=== PATIENT | female | born 1940 | race Caucasian/White ===

== ENCOUNTER 2019-09-24 12:26 | Inpatient (IN) | payer MEDICARE, OTHER, SELFPAY ==
[2019-09-24 12:27] VITALS: BP 163/69; PULSE 68; RESP 18; TEMP 36.6; BMI 24.3
--- NOTE | 2019-09-24 13:15 | RAD_ITS ---
STUDY: X-RAY - PELVIS AND LEFT HIP REASON FOR EXAM: Female, 78 years old. TECHNIQUE: views of the pelvis and hip. COMPARISON: None. FINDINGS: Both iliac bones and right hip are unremarkable. The left hip reveals intramedullary harmony with 2 screws in neck, there is some lucency around the screws. Also calcification noted superior to the greater trochanter. Arterial calcifications noted of superficial femoral arteries bilaterally. Some phleboliths are present in the pelvis as well. Degenerative changes seen in the lower lumbar spine. RAD/HIP, UNI W/ Pelvis 2-3 Views IMPRESSION: Intramedullary harmony within the femur with 2 screws transfixing neck some lucency seen around the screws. Four clinical correlation. Electronically Signed: Jules Navarrete, at 13:58 EST Tel , Service support ,
--- NOTE | 2019-09-24 13:35 | ED.VISSUMM ---
- ER Visit Summary Date of Service: 09/24/19 Chief Complaint: [Fall] History of Present Illness: The patient is a 78 F [presents to the emergency department with a fall that occurred around 7 AM today. Patient was standing on the edge of a skid core loader and as her was putting the skin down it tipped forward and she fell probably less than a foot off the ground but landed on her buttocks and onto her left hip. Patient was able to stand and bear some weight with a cane but progressively developed more discomfort now with a hard time ambulating at all. Patient denies striking her head. She denies neck pain. She denies chest pain. She denies any abdominal pain. She is not on any blood thinners. Patient has history of diabetes, hypertension, high cholesterol. Patient has had prior fracture to the left hip with prior repair.] Physical Examination: [HEENT-PERRLA, EOMI. Cranial nerves II through XII grossly intact. TMs clear. Mucous membranes moist. No adenopathy. Cardiovascular-regular rate and rhythm without murmur or ectopy Lungs-clear to auscultation, chest wall stable without crepitus or subcu emphysema Abdomen-normoactive bowel sounds, soft, nontender, no rebound or rigidity, no peritoneal signs. Extremities-intact ?4, normal range of motion, normal pulses, atraumatic. Patient has tenderness palpation over the left groin and pubic ramus. Mild tenderness over the left hip. There is no shortening or external rotation noted. She is neurovascular intact.] Test Results: [X-rays of the left hip and pelvis obtained read by myself is fractures of the superior and inferior pubic ramus. I do not appreciate any fractures of the hip.] Emergency Department Course and Treatment: [Had an IV line established. Patient will be ordered a CBC and a basic metabolic profile. She does not want anything for pain acutely states she is only uncomfortable when she tries to stand or bear weight.] Treatment Plan: [Admit] Disposition: [Admit] Impression: [Mechanical fall Left inferior and superior pubic ramus fracture Inability to ambulate] This note was generated with [employer] dictation software. It may contain incorrect words, spelling, and punctuation that were not noted in review of the chart prior to signing ED Disposition - Plan for ED Patient: Referrals: Hai Posadas MD [Primary Care Provider] -
[2019-09-24 13:52] VITALS: BP 180/74; PULSE 68; PULSE 71; RESP 15; O2SAT 95; O2SAT 96
--- NOTE | 2019-09-24 14:06 | HP.PCM_ITS ---
Problem List (1) Hip pain Status: Acute Qualifiers: Laterality: left Qualified Code(s): M25.552 - Pain in left hip History of Present Illness Date of Admission: 09/24/19 Chief Complaint: hip pain The patient is a 78 year old F who had a mechanical fall today. Patient was standing on a skid steer as they were collecting hay. The hay [place] tipped forward and the patient fell landing on her buttocks. Patient did not hit her head nor lose consciousness. Patient had immediate pain particular on her left side worse with movement. Patient was not having this pain previous. Presented to the emergency room where she was seen by the emergency room physician he diagnosed iliac fractures. Final results came back the x-ray that noted that the iliac bones were unremarkable but did show the intramedullary harmony with in the femur showed some loosening around the screws. [] Past Medical History Past Medical History (Chronic Problems): Chronic Problems Osteoporosis (Chronic) Hypertension (Chronic) Type I diabetes mellitus (Chronic) Allergies No Known Allergies Allergy (Verified 09/24/19 12:29) Home Medications: Ambulatory Orders Medication Instructions Recorded Aspirin [Aspirin, Baby] 81 mg PO DAILY 04/30/15 Metoprolol Tartrate [Lopressor 25 mg PO BID 04/30/15 (beta pradip)] Losartan Potassium [Cozaar] 25 mg PO QHS 12/17/15 Lovastatin [Mevacor] 20 mg PO DAILY 12/17/15 Calcium (Elemental) [Os-Javier 500] 1,000 mg PO BIDCM 09/24/19 Ergocalciferol [Vitamin D] 50,000 units PO QWEEK 09/24/19 Furosemide [Lasix] 20 mg PO DAILY 09/24/19 Insulin Lispro [Humalog] See Protocol SUBCUT TID 09/24/19 Losartan Potassium 50 mg PO DAILY 09/24/19 Surgical History: total hip arthroplasty, - - Thyroglossal cyst removal, C- section, D&C Psychiatric History: No pertinent psych hx [employer] History: No pertinent [employer]PH[employer] history Smoking Status: Never smoker Tobacco Use: Non-smoker - *Family History Maternal History Items: Stroke - age 89 Paternal History Items: No pertinent history - age 89 Offspring History Items: No pertinent history - 2 adopted children and 2 grqandchildren Sibling History Items: Heart Disease Review of Systems Constitutional: Denies: Anorexia, Chills, Fever, Night Sweats Eyes: Denies: Blurred vision, Double vision HEENT: Denies: Head Aches, Sinus Congestion, Sinus Drainage Cardiovascular: Reports: Edema - Chronic and left lower extremity. Denies: Chest Pain, Palpitations Respiratory: Denies: Cough, Shortness of breath at rest, Sputum production Gastrointestinal: Reports: Constipation. Denies: Abdominal Pain, Nausea, Vomiting Genitourinary: Denies: Dysuria Musculoskeletal: Reports: Leg Pain. Denies: Back Pain Skin: Reports: Dryness Neurological: Denies: Blurred vision, Double vision, Numbness Psychiatric: Denies: Anxiety, Depression Endocrine: Denies: Change in Body Habitus, Heat/ Cold Intolerance Hematologic/ Lymphatic: Denies: Easy Bruising, Easy Bleeding, Hx of blood clot Comment: RV systems otherwise negative except for as mentioned above and in HPI. VTE Information - Inpt Only VTE Present on Admission: No VTE Mechan Device Prophylaxis: None VTE Pharm Prophylaxis ordered?: Yes Patient Problems: Active and Suspected Problems Hip pain (Acute) - Physical Exam Vitals/I&O's: Vital Signs Temp Pulse Resp BP Pulse Ox 36.6 C 71 15 180/74 H 96 09/24/19 12:27 09/24/19 13:52 09/24/19 13:52 09/24/19 13:52 09/24/19 13:52 Oxygen Delivery Method Room Air Weight: 62.142 kg Body Mass Index (BMI) 24.3 Finger Stick Blood Glucose 349 General: Alert, Cooperative, No apparent distress HEENT: Atraumatic, Normocephalic Oral: Moist Mucosa, No Gingival or Mucosal Lesions/ Ulcerations Neck: No Nodes, Trachea Midline Lungs: Clear to auscultation, Normal air movement, No rhonchi, No wheeze, No rales Cardiovascular: Regular rate, Regular Rhythm, Normal S1, Normal S2 Abdomen: Bowel Sounds Present, Soft, Non Tender, Non-Distended, No Hepato- splenomegaly Extremities: No Calf Tenderness, Edema - In the left lower extremity Skin: No rashes Musculoskeletal: No Muscle Wasting, - - Pain with passive movement of the left hip. No shortening of the left hip. Neurological: Muscle tone normal, Coordination normal, - - No clonus Psych/Mental Status: Normal Affect, Appropriate Clinical Impression(s) from Imaging Studies Hip/Pelvis X-Ray 09/24/19 13:15 IMPRESSION: Intramedullary harmony within the femur with 2 screws transfixing neck some lucency seen around the screws. Four clinical correlation. Electronically Signed: Jules Navarrete, at 13:58 EST Tel , Service support , Assessment/Plan All Active Problems Hip pain (Acute) S/P ORIF (open reduction internal fixation) fracture (Acute) Medical management (Acute) Intertrochanteric fracture of left hip (Acute) 1. Left hip pain * Status post mechanical fall * No iliac fractures * Possible lucency around the screws from her previous hip fracture repair * Will check a CAT scan. Given the patient's hardware, feel that it be less artifact from that as compared to the MRI * Patient will be nonweightbearing left lower extremity until we can fully evaluate the hip with a CAT scan. If no fracture then patient can be weightbearing as tolerated but if a fracture then will need to consult orthopedics. The patient does have a fracture cannot refer to orthopedics here or the patient prefers contact [facility] where the patient had the surgery in [address] Polanco * Check a 25-hydroxy vitamin D level * If no fracture, physical Occupational Therapy evaluate and treat. Patient be evaluated for possible halfway facility placement. * Pain control with scheduled Tylenol as well as as needed oxycodone 2. Diabetes mellitus type 1 * Patient has had diabetes for over 60 years * Patient currently has an insulin pump as well as a subcutaneous monitor. Patient manages her insulin on her own and states that she does well with that. Blood sugar today, after the fall, was elevated but patient denies giving herself any more injections than typical. 3. Hypertension * Currently elevated likely exacerbated due to the fall and the pain * Continue with losartan 4. VTE prophylaxis: Moderate risk and patient will be on enoxaparin 5. Advanced care planning: Discussed with the patient. Patient wishes to be full CODE STATUS at this time. Norris with the patient's family at bedside. Made them aware that the patient may be here possibly up to 5 to 6 days particularly if she is requiring halfway facility placement, given the holiday weekend. Currently, the patient is observation status as it is not yet clear if patient has a surgical issue with her hip or not. But patient does have an obvious fracture then can be changed over to admission but if not the patient still too weak to go home then would defer to case management if patient would meet admission criteria on the . Code Visit OBSV E&M: 06629 Initial observation care L3
[2019-09-24 14:25] LABS: Absolute Lymphocyte Count 0.39 X10^3/uL (0.83-4.51); Absolute Neutrophil Count 7.9 X10^3/uL (2.0-7.7); Basophil# 0.02 X10^3/uL; Basophil% 0.2 % (0-1); Eosinophil# 0.02 X10^3/uL; Eosinophils% 0.2 % (0-5); Hemoglobin 12.8 g/dL (12.0-15.0); Lymphocyte # 0.39 X10^3/ul (4.0); Lymphocyte % 4.4 % (19-41); Mean Corp Hgb Conc 33.7 g/dL (32-36); Mean Corpuscular Hgb 31.1 pg (27.0-32.0); Mean Corpuscular Volume 92.5 fL (81-99); Mean Platelet Vol. 9.3 fl (6.2-12.0); Monocyte# 0.53 X10^3/uL; NRBC Flagged by Analyzer 0 % (0-5); Neutrophil # 7.89 X10^3/uL (2.7-7.7); Neutrophil % 88.6 % (47-70); POSITIVE DIFFERENTIAL YES; Platelet Count 173 K/mm3 (150-450); RBC Distribution Width CV 12.4 % (11.6-14.6); RBC Distribution Width SD 41.9 fl (35.1-43.9); Red Blood Count 4.11 M/mm3 (4.2-5.4); White Blood Count 8.9 K/mm3 (4.4-11.0)
[2019-09-24 14:28] LABS: Differential Indicated SCAN CRITERIA MET
[2019-09-24 14:33] LABS: Anion Gap 9 (5-15); BUN 28 mg/dL (7-18); BUN/Creat Ratio 22.2 RATIO (10-20); Calcium,Total 9.5 mg/dL (8.5-10.1); Chloride 99 mmol/L (98-107); Creatinine, Serum 1.26 mg/dL (0.55-1.02); EST Glomerular Filtration Rate 43 mL/min (>60); Est Glom Filt Rate - Afr Amer 52 mL/min (>60); Estimated Creatinine Clearance 29.46 ml/min; Glucose 201 mg/dL (74-106); Potassium 4.1 mmol/L (3.5-5.1); Sodium Level 136 mmol/L (136-145)
--- NOTE | 2019-09-24 15:00 | CT_ITS ---
STUDY: CT LEFT FEMUR WITHOUT CONTRAST REASON FOR EXAM: Female, 78 years old. Postoperative hip pain RADIATION DOSAGE (If Supplied By Facility): CTDIvol = ( 15.61 ) mGy, DLP = ( 791.46 ) mGycm TECHNIQUE: Transaxial CT imaging of the femur was performed. Sagittal and coronal images were reconstructed. Individualized dose optimization techniques were used for this CT. COMPARISON: Plain film from earlier today FINDINGS: The [place] femur and the osseous structures are demineralized. Patient is status post surgery. The intramedullary harmony and compression screw are free of complication and there is no suspicious lucency noted on CT. No CT evidence to suspect loosening or infection. Age consistent left hip arthrosis without dislocation or subluxation. There is an acute minimally displaced left inferior pubic ramus fracture. There is also subtle serpiginous lucency in the anterior acetabulum best seen on axial image 30/190 and coronal reconstruction image 44/96 to suspect a fracture. The source images show normal-appearing bladder, the uterus is still present, the endometrium cannot be adequately evaluated with CT. There is no suspicious soft tissue swelling or postoperative fluid collection. There is subtle induration of the subcutaneous fat. CT/Extremity Lower without Contra IMPRESSION: Status post left hip surgery. The hardware is intact and free of complication there is no suspicious lucency to suspect loosening or infection. Minimally displaced fracture at the junction of the left inferior pubic ramus and symphysis pubis. Serpiginous lucency in the anterior acetabulum, fracture suspected Electronically Signed: Keanu Lofton MD at 17:34 EST , Service support ,
[2019-09-24 15:06] VITALS: BMI 24.3
[2019-09-24 15:08] VITALS: BP 183/70; PULSE 76; RESP 16; TEMP 36.8; O2SAT 98
[2019-09-24 15:13] VITALS: BMI 24.3
[2019-09-24] MEDS: Senna/Docusate Sodium 1 Tablet 2 TABLET PO (16:11)
[2019-09-24] MEDS: oxyCODONE 5 MG Tablet 10 MG PO (16:12)
[2019-09-24] MEDS: Calcium (Elemental) 500 MG Tablet 1000 MG PO (16:12)
[2019-09-24 17:25] LABS: Bedside Glucose 268 mg/dL (70-110)
[2019-09-24 17:48] LABS: Vitamin D,25 Hydroxy 39.4 ng/mL (29.95-100.01)
[2019-09-24] MEDS: Insulin Lispro 100 UNIT/ML INSULN.PEN SC (18:26)
--- NOTE | 2019-09-24 19:37 | NURSING ---
awaiting daughters arrival after 1900 to supply home insulin.
[2019-09-24 19:52] VITALS: BP 140/71; PULSE 74; RESP 16; TEMP 37.2; O2SAT 94
[2019-09-24] MEDS: Insulin Bolus Pump SC (20:27)
[2019-09-24] MEDS: Acetaminophen 500 MG Tablet 1000 MG PO (21:00)
[2019-09-24 21:01] VITALS: PULSE 74
[2019-09-24] MEDS: Metoprolol Tartrate 25 MG Tablet PO (21:01)
[2019-09-24] MEDS: Losartan Potassium 25 MG Tablet PO (21:01)
[2019-09-25] VITALS (8 sets, daily range): BP systolic 119–181; BP diastolic 54–76; PULSE 65–74; RESP 16–18; TEMP 36.7–37.4; O2SAT 92–97
[2019-09-25] MEDS: Acetaminophen 500 MG Tablet 1000 MG PO ×3 (05:16→21:30)
[2019-09-25] MEDS: Insulin Bolus Pump SC (06:32)
[2019-09-25] MEDS: Aspirin 81 MG TAB.CHEW PO (08:31)
[2019-09-25] MEDS: Calcium (Elemental) 500 MG Tablet 1000 MG PO ×2 (08:31→17:02)
[2019-09-25] MEDS: Losartan Potassium 50 MG Tablet PO (09:50)
[2019-09-25] MEDS: Enoxaparin 30 MG/0.3 ML Syringe SC (09:51)
[2019-09-25] MEDS: Furosemide 20 MG Tablet PO (09:51)
[2019-09-25] MEDS: Metoprolol Tartrate 25 MG Tablet PO ×2 (09:51→21:30)
--- NOTE | 2019-09-25 10:30 | PN_ITS ---
Patient Problems: Active and Suspected Problems Hip pain (Acute) Reason for Visit: Follow-up for mechanical fall and pelvic fracture. Subjective: Patient left leg mildly abducted and externally rotated. Pain is well controlled. Mildly on changing posture and movement. Hemodynamically stable. Vitals/I&O's: Vital Signs Temp Pulse Resp BP Pulse Ox 99.1 F 72 16 159/63 H 92 09/25/19 08:27 09/25/19 09:55 09/25/19 08:27 09/25/19 08:27 09/25/19 08:27 Oxygen Delivery Method Room Air Weight: 137 lb 2.04 oz Body Mass Index (BMI) 24.3 Finger Stick Blood Glucose 349 Intake and Output for Last 24 Hours 09/23/19 09/24/19 09/25/19 23:59 23:59 23:59 Output Total 500 / 500 500 / 500 Balance -500 / -500 -500 / -500 General: Alert, Oriented x3, Cooperative HEENT: Atraumatic, PERRLA, EOMI, Normocephalic Neck: Supple, No JVD, Negative Carotid Bruits Lungs: Clear to auscultation, No rhonchi, No wheeze, No rales, Diminished Cardiovascular: Regular rate, Regular Rhythm, Normal S1, Normal S2, No murmurs Abdomen: Bowel Sounds Present, Soft, Non Tender, Non-Distended Extremities: No edema, Capillary Refill Less than 3 Seconds Skin: No rashes, No breakdown Musculoskeletal: Arthritic Changes, Tenderness - Mild tenderness to deep palpation of pubic ramus. Neurological: Cranial nerves II-XII grossly intact, Deep Tendon Reflexes 2+/4 and Symmetrical, Neuro grossly intact Psych/Mental Status: Normal Affect, Appropriate Laboratory Results 09/24/19 14:11: WBC 8.9, RBC 4.11 L, Hgb 12.8, Hct 38.0, MCV 92.5, MCH 31.1, MCHC 33.7, RDW Std Deviation 41.9, RDW Coeff of Royce 12.4, Plt Count 173, MPV 9.3, Immature Gran % (Auto) 0.600, Neut % (Auto) 88.6 H, Lymph % (Auto) 4.4 L, [place] % (Auto) 6.0, Eos % (Auto) 0.2, Baso % (Auto) 0.2, Absolute Neuts (auto) 7.9 H, Absolute Lymphs (auto) 0.39 L, Nucleated RBC % 0, Differential Comment COMMENT 09/24/19 14:11: Sodium 136, Potassium 4.1, Chloride 99, Carbon Dioxide 28.0, Anion Gap 9, BUN 28 H, Creatinine 1.26 H, Estim Creat Clear Calc 29.46, Est GFR (MDRD) Af Amer 52 L, Est GFR (MDRD) Non-Af 43 L, BUN/Creatinine Ratio 22.2 H, Glucose 201 H, Calcium 9.5 09/24/19 17:16: POC Glucose 268 H 09/24/19 17:20: Vitamin D 25-Hydroxy 39.4 Current Medications Acetaminophen (Tylenol) 1,000 mg PO TID [facility] Last Admin: 09/25/19 05:16 Dose: 1,000 mg Documented by: Aspirin (Aspirin, Baby) 81 mg PO DAILY@0800 [facility] Last Admin: 09/25/19 08:31 Dose: 81 mg Documented by: Atorvastatin Calcium (Lipitor) 5 mg PO QHS [facility] Calcium Carbonate (Os-Javier 500) 1,000 mg PO BIDCM [facility] Last Admin: 09/25/19 08:31 Dose: 1,000 mg Documented by: Dextrose (D50w Syringe) 0 gm IV X1 PRN; Protocol PRN Reason: Hypoglycemia Enoxaparin Sodium (Lovenox) 30 mg SC DAILY [facility] Last Admin: 09/25/19 09:51 Dose: 30 mg Documented by: Ergocalciferol (Vitamin D) 50,000 unit PO QWEEK [facility] Last Admin: 09/24/19 16:11 Dose: 50,000 unit Documented by: Furosemide (Lasix) 20 mg PO DAILY [facility] Last Admin: 09/25/19 09:51 Dose: 20 mg Documented by: Glucagon () 1 mg IM .X1 PRN PRN Reason: Hypoglycemia Insulin Aspart (Pump, Bolus) 0 unit SC TIDAC [facility] Last Admin: 09/25/19 06:32 Dose: 1 unit Documented by: Losartan Potassium (Cozaar) 25 mg PO QHS [facility] Last Admin: 09/24/19 21:01 Dose: 25 mg Documented by: Losartan Potassium (Cozaar) 50 mg PO DAILY [facility] Last Admin: 09/25/19 09:50 Dose: 50 mg Documented by: Melatonin (Melatonin) 3 mg PO QHS PRN PRN PRN Reason: INSOMNIA Metoprolol Tartrate (Lopressor (Beta Trevor)) 25 mg PO BID [facility] Last Admin: 09/25/19 09:51 Dose: 25 mg Documented by: Ondansetron HCl (Zofran) 4 mg IV Q8H PRN PRN PRN Reason: NAUSEA/VOMITING Oxycodone HCl (Oxyir) 5 mg PO Q4H PRN PRN PRN Reason: Pain Score 4-5/10 Oxycodone HCl (Oxyir) 10 mg PO Q4H PRN PRN PRN Reason: Pain Score 6-10/10 Last Admin: 09/24/19 16:12 Dose: 10 mg Documented by: Senna/Docusate Sodium (Senokot-S, Kimi-Colace) 2 tablet PO BID PRN PRN PRN Reason: Constipation Last Admin: 09/24/19 16:11 Dose: 2 tablet Documented by: Sodium Chloride () 10 - 40 ml IV UD PRN PRN Reason: SALINE FLUSH STROKE Vital Signs/Narrative: Vital Signs Temp Pulse Resp BP Pulse Ox 09/25/19 09:55 72 09/25/19 09:51 72 09/25/19 08:27 99.1 F 71 16 159/63 H 92 Medical Necessity - Tobacco Use Smoking Status: Never smoker Tobacco Use: Non-smoker Assessment/Plan All Active Problems Hip pain (Acute) S/P ORIF (open reduction internal fixation) fracture (Acute) Medical management (Acute) Intertrochanteric fracture of left hip (Acute) This 78-year-old female who was admitted with mechanical fall after she fell down from standing position of skid steer. She fell down on her buttock mainly on her left side. Initial evaluation in CT and then CT pelvis shows serpiginous lucency in the anterior acetabulum and acetabular acute minim ally displaced inferior pubic rami fracture. 1. Left hip pain with minimally displaced left left inferior pubic rami fracture after mechanical fall: X-ray and CT pelvis radiological features was discussed with the patient. Earlier hospitalist discussed with Dr. Rothman and he recommended PT OT walker and outpatient follow-up. No surgery recommended. Currently patient is on nonweightbearing until evaluated by PT and OT. The patient had left hip surgery in [address] Polanco. Vitamin D is 39. Vitamin D 2000 weekly. PT OT, Tylenol and pain control. 2. Diabetes mellitus type 1: Patient on insulin pump with subcutaneous monitor. 3. Hypertension * Currently elevated likely exacerbated due to the fall and the pain * Continue with losartan 4. VTE prophylaxis: Moderate risk and on enoxaparin 5. Advanced care planning: Patient wishes to be full CODE STATUS at this time. Code Visit Inpatient E&M: 08678 Subs Hosp L2
[2019-09-25] MEDS: Senna/Docusate Sodium 1 Tablet 2 TABLET PO (17:07)
[2019-09-25] MEDS: Atorvastatin Calcium 10 MG Tablet 5 MG PO (21:30)
[2019-09-25] MEDS: Losartan Potassium 25 MG Tablet PO (21:31)
[2019-09-26 02:27] VITALS: BP 159/68; PULSE 71; RESP 18; TEMP 37.3; O2SAT 93
[2019-09-26] MEDS: 0.9% Saline Lock 10 ML Syringe IV (06:06)
[2019-09-26] MEDS: Acetaminophen 500 MG Tablet 1000 MG PO (06:06)
[2019-09-26 08:03] VITALS: BP 156/70; PULSE 62; RESP 18; TEMP 36.6; O2SAT 96
[2019-09-26] MEDS: Losartan Potassium 50 MG Tablet PO (08:08)
[2019-09-26 08:09] VITALS: PULSE 62
[2019-09-26] MEDS: Furosemide 20 MG Tablet PO (08:09)
[2019-09-26] MEDS: Calcium (Elemental) 500 MG Tablet 1000 MG PO (08:09)
[2019-09-26] MEDS: Metoprolol Tartrate 25 MG Tablet PO (08:09)
[2019-09-26] MEDS: Aspirin 81 MG TAB.CHEW PO (08:10)
[2019-09-26] MEDS: Enoxaparin 30 MG/0.3 ML Syringe SC (08:10)
--- NOTE | 2019-09-26 09:29 | CASEMGMT ---
Social Work Note GULSHAN reviewed notes, pt is interested in [facility] vs TCU. Pt does have qualifying diagnosis for [facility]. GULSHAN placed a call to and spoke with Shala. Shala states she will run pt's case past Dr. Torres and let this worker know. GULSHAN received call from Shala with [facility] stating [facility] is able to accept pt today and physician requests pt either be discharged before 12:00pm or pt not be discharged until tomorrow morning. GULSHAN updated hospitalist. Hospitalist states he will discharged pt now so [facility] can take pt today. GULSHAN placed a call to Shala with [facility] and updated her that pt will be discharged before 12:00pm today. Shala states she will update [facility] physician. GULSHAN in to speak with pt. GULSHAN introduced self and role at [facility]. Pt is alert and orientated x3. Pt confirms that she is interested in either [facility] ot TCU. GULSHAN informed pt that this worker made referral to [facility] and they are able to accept pt today. Pt states understanding. Plan: [facility] today Barbara Mclean [employer], [employer]ES [employer] SERVICE [employer]IST
--- NOTE | 2019-09-26 09:36 | PCM.TXEXTCAR ---
- Diet 09/24/19 15:00 Diet: Calorie Controlled Food consistency:: Regular Liquid Consistency:: Regular/Thin How many daily calories?: 1800 calorie - Routine Orders/Code Status Suppository Type: Dulcolax 10mg Suppository Frequency: Daily PRN Code Status: Full Code - Therapies Weight Bearing: Weight bearing as tolerated Physical Therapy: Eval and Treat Occupational Therapy: Eval and Treat Speech Therapy: Eval and Treat - Allergies/Procedures Done in Hospital Allergies/Adverse Reactions: Allergies No Known Allergies Allergy (Verified 09/24/19 12:29) - Type of Care/Length of Stay Estimated LOS: Convalescent Care Less Than 30 days Type of Care Needed: Skilled Rehab Potential: Good Prognosis: Good - Additional Orders/Day of Discharge Additional Orders: F/U [facility] orthopedic surgeon, Dr. Polanco in 2 weeks if doesn't want to follow up with Dr Rothman Day of Discharge: 09/26/19 - Follow Up Care Primary Care Physician: Hai Posadas MD [Primary Care Provider] - Please follow up with your Primary Care Physician in: in 2 weeks Please Follow Up With: Yeyo Rothman DO When: in 2 weeks
--- NOTE | 2019-09-26 09:40 | PCM.DC.SUM ---
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 She fell down on her buttock mainly on her left side. Initial evaluation in CT and then CT pelvis shows serpiginous lucency in the anterior acetabulum and acetabular acute minimally displaced inferior pubic rami fracture. 1. Left hip pain with minimally displaced left left inferior pubic rami fracture after mechanical fall: X-ray and CT pelvis radiological features was discussed with the patient. Earlier hospitalist discussed with Dr. Rothman and he recommended PT OT walker and outpatient follow-up. No surgery recommended. Currently patient is on nonweightbearing until evaluated by PT and OT. The patient had left hip surgery in [address] Ploanco. Vitamin D is 39. Vitamin D 2000 weekly. PT OT, Tylenol and pain control. 09/26: Pain is well controlled. Discharge to acute rehab. 2. Diabetes mellitus type 1: Patient on insulin pump with subcutaneous monitor. Patient checks glucose on insulin pump and injects insulin as per monitor 3. Hypertension Currently elevated likely exacerbated due to the fall and the pain Continue with losartan 4. VTE prophylaxis: Moderate risk and on enoxaparin 5. Advanced care planning: Patient wishes to be full CODE STATUS at this time. Discharge medication reconciliation done. Discharge follow-up instructions completed. Discharge process discussed with the patient and all questions were answered to patient's satisfaction. Prescription given for oxycodone 5 mg every 4 hourly as needed for total 10 tablets. On senna S as needed for constipation. Losartan dose increased to 50 mg twice daily. Total time spent, exact 35 minutes on discharge meds reconciliation, examination, review of imaging and blood test and discussion with the patient on follow-up instructions. Patient Problems: Active and Suspected Problems Pelvic fracture (Acute) Subjective: Seen and examined. Patient is well controlled. Hemodynamically stable. No fever. Patient sitting on the recliner. Objective: General: Alert, Oriented x3, Cooperative HEENT: Atraumatic, PERRLA, EOMI, Normocephalic Neck: Supple, No JVD, Negative Carotid Bruits Lungs: Clear to auscultation, No rhonchi, No wheeze, No rales, air entry bilateral equal. Cardiovascular: Regular rate, Regular Rhythm, Normal S1, Normal S2, No murmurs Abdomen: Bowel Sounds Present, Soft, Non Tender, Non-Distended Extremities: No edema, Capillary Refill Less than 3 Seconds Skin: No rashes, No breakdown Musculoskeletal: Arthritic Changes, Mild tenderness to deep palpation of pubic ramus. Neurological: Cranial nerves II-XII grossly intact, Deep Tendon Reflexes 2+/4 and Symmetrical, Neuro grossly intact Psych/Mental Status: Normal Affect, Appropriate - Physical Exam Vitals/I&O's: Vital Signs Temp Pulse Resp BP Pulse Ox 97.9 F 62 18 156/70 H 96 09/26/19 08:03 09/26/19 08:09 09/26/19 08:03 09/26/19 08:03 09/26/19 08:03 Oxygen Delivery Method Room Air Weight: 137 lb 2.04 oz Body Mass Index (BMI) 24.3 Finger Stick Blood Glucose 349 Intake and Output for Last 24 Hours 09/24/19 09/25/19 09/26/19 23:59 23:59 23:59 Intake Total 700 / 700 200 / 200 Output Total 500 / 500 1800 / 1800 900 / 900 Balance -500 / -500 -1100 / -1100 -700 / -700 Current Medications Acetaminophen (Tylenol) 1,000 mg PO TID [facility] Last Admin: 09/26/19 06:06 Dose: 1,000 mg Documented by: Aspirin (Aspirin, Baby) 81 mg PO DAILY@0800 [facility] Last Admin: 09/26/19 08:10 Dose: 81 mg Documented by: Atorvastatin Calcium (Lipitor) 5 mg PO QHS [facility] Last Admin: 09/25/19 21:30 Dose: 5 mg Documented by: Calcium Carbonate (Os-Javier 500) 1,000 mg PO BIDCM [facility] Last Admin: 09/26/19 08:09 Dose: 1,000 mg Documented by: Dextrose (D50w Syringe) 0 gm IV X1 PRN; Protocol PRN Reason: Hypoglycemia Enoxaparin Sodium (Lovenox) 30 mg SC DAILY [facility] Last Admin: 09/26/19 08:10 Dose: 30 mg Documented by: Ergocalciferol (Vitamin D) 50,000 unit PO QWEEK [facility] Last Admin: 09/24/19 16:11 Dose: 50,000 unit Documented by: Furosemide (Lasix) 20 mg PO DAILY [facility] Last Admin: 09/26/19 08:09 Dose: 20 mg Documented by: Glucagon () 1 mg IM .X1 PRN PRN Reason: Hypoglycemia Insulin Aspart (Pump, Bolus) 0 unit SC TIDAC [facility] Last Admin: 09/26/19 06:08 Dose: Not Given Documented by: Losartan Potassium (Cozaar) 50 mg PO DAILY [facility] [place] Last Admin: 09/26/19 08:08 Dose: 50 mg Documented by: Losartan Potassium (Cozaar) 50 mg PO QHS [facility] Melatonin (Melatonin) 3 mg PO QHS PRN PRN PRN Reason: INSOMNIA Metoprolol Tartrate (Lopressor (Beta Trevor)) 25 mg PO BID [facility] Last Admin: 09/26/19 08:09 Dose: 25 mg Documented by: Ondansetron HCl (Zofran) 4 mg IV Q8H PRN PRN PRN Reason: NAUSEA/VOMITING Oxycodone HCl (Oxyir) 5 mg PO Q4H PRN PRN PRN Reason: Pain Score 4-5/10 Oxycodone HCl (Oxyir) 10 mg PO Q4H PRN PRN PRN Reason: Pain Score 6-10/10 Last Admin: 09/24/19 16:12 Dose: 10 mg Documented by: Senna/Docusate Sodium (Senokot-S, Kimi-Colace) 2 tablet PO BID PRN PRN PRN Reason: Constipation Last Admin: 09/25/19 17:07 Dose: 2 tablet Documented by: Sodium Chloride () 10 - 40 ml IV UD PRN PRN Reason: SALINE FLUSH Last Admin: 09/26/19 06:06 Dose: 10 ml Documented by: Home Medications: Medications to take at Discharge Aspirin [Aspirin, Baby] 81 mg PO DAILY 04/30/15 Metoprolol Tartrate [Lopressor (beta trevor)] 25 mg PO BID 04/30/15 Lovastatin [Mevacor] 20 mg PO DAILY 12/17/15 Calcium (Elemental) [Os-Javier 500] 1,000 mg PO BID 09/24/19 Ergocalciferol [Vitamin D] 50,000 units PO QWEEK 09/24/19 Furosemide [Lasix] 20 mg PO DAILY 09/24/19 Losartan Potassium 50 mg PO DAILY 09/24/19 Insulin Lispro [Humalog] See Protocol SUBCUT TID #1 cartridge 09/26/19 Losartan Potassium [Cozaar] 50 mg PO QHS #0 09/26/19 Oxycodone [Oxyir] 5 mg PO Q4H PRN PRN 3 Days #10 tab 09/26/19 Senna/Docusate Sodium [Senokot-S] 2 tab PO BID PRN PRN tab 09/26/19 Following Prescrptions Were Given to Patient: Insulin Lispro [Humalog] See Protocol SUBCUT TID #1 cartridge Prescription Printed Oxycodone [Oxyir] 5 mg PO Q4H PRN PRN 3 Days #10 tab PRN Reason: Pain Score 4-5/10 Prescription Printed Primary Care Physician: Hai Posadas MD [Primary Care Provider] - Please follow up with your Primary Care Physician in: in 2 weeks Please Follow Up With: Yeyo Rothman DO When: in 2 weeks Medical Necessity - Tobacco Use Smoking Status: Never smoker Tobacco Use: Non-smoker Meaningful Use Info Meaningful Use Diagnoses (Choose all that apply): None applicable Code Visit Inpatient E&M: 85155 Disch Hosp
--- NOTE | 2019-09-26 10:10 | DCINST_ITS ---
- Discharge Diagnoses Current Active Problems: Current Active and Chronic Problems Hip pain (Acute) You will use the following diet at home:: Calorie/Carbohydrate Controlled (specify 1200, 1400, etc) - 1800 ADA diet Your food should be the consistency of: Regular Discharge Activity: May Not Drive Weight Bearing Status: Weight bearing as tolerated Call your doctor if you observe: Fever of 101 or Higher, Numbness or Tingling, Inability to urinate, Inability to have a bowel movement, Shortness of breath, Dizziness, Fainting spells, Swelling in the ankles, Chest pain, Increased palpitations (irregular heartbeat), Calf discomfort, Uncontrolled pain Additional Instructions: Pt want to see Dr Warren as she has seen him in past Allergies/Adverse Reactions: Allergies No Known Allergies Allergy (Verified 09/24/19 12:29) Medications to take at Discharge Aspirin [Aspirin, Baby] 81 mg PO DAILY 04/30/15 Metoprolol Tartrate [Lopressor (beta pradip)] 25 mg PO BID 04/30/15 Lovastatin [Mevacor] 20 mg PO DAILY 12/17/15 Calcium (Elemental) [Os-Javier 500] 1,000 mg PO BIDCM 09/24/19 Ergocalciferol [Vitamin D] 50,000 units PO QWEEK 09/24/19 Furosemide [Lasix] 20 mg PO DAILY 09/24/19 Losartan Potassium 50 mg PO DAILY 09/24/19 Insulin Lispro [Humalog] See Protocol SUBCUT TID #1 cartridge 09/26/19 Losartan Potassium [Cozaar] 50 mg PO QHS #0 09/26/19 Oxycodone [Oxyir] 5 mg PO Q4H PRN PRN 3 Days #10 tab 09/26/19 Senna/Docusate Sodium [Senokot-S] 2 tab PO BID PRN PRN tab 09/26/19 The following prescriptions were given: Insulin Lispro [Humalog] See Protocol SUBCUT TID #1 cartridge Prescription Printed Oxycodone [Oxyir] 5 mg PO Q4H PRN PRN 3 Days #10 tab PRN Reason: Pain Score 4-5/10 Prescription Printed Primary Care Physician: Hai Posadas MD [Primary Care Provider] - Please follow up with your Primary Care Physician in: in 2 weeks Test Results: Test results from this visit will be discussed in further detail at your follow- up appointment, if applicable. Please Follow Up With: Ozzy Warren MD When: in 2 weeks
--- NOTE | 2019-09-26 10:14 | NURSING ---
Called report to Maci in inpatient Rehab at this time.
== END 2019-09-26 10:42 | DRG 536 ==
LOC: ED 13:02 → MS3 14:36
PROVIDERS: Emergency Provider Emergency Medicine; Family Provider Family Medicine; PCP Family Medicine; Visit Provider Internal Medicine
DX: S32.592A Other specified fracture of left pubis, initial encounter for closed fracture (principal); W17.89XA Other fall from one level to another, initial encounter; Y93.89 Activity, other specified; Y92.008 Other place in unspecified non-institutional (private) residence as the place of occurrence of the external cause; Y99.8 Other external cause status; I10 Essential (primary) hypertension; E78.00 Pure hypercholesterolemia, unspecified; E10.9 Type 1 diabetes mellitus without complications; M81.0 Age-related osteoporosis without current pathological fracture; Z79.4 Long term (current) use of insulin; Z79.899 Other long term (current) drug therapy; Z79.82 Long term (current) use of aspirin; Z96.642 Presence of left artificial hip joint; Z96.41 Presence of insulin pump (external) (internal)
CPT/HCPCS: 36415; 73502; 73700; 80048; 82306; 82962; 85025; 97116; 97162; 97165; 97530; 99284; A4216

== ENCOUNTER 2019-09-26 10:59 | Inpatient (IN) | payer MEDICARE, OTHER, SELFPAY ==
[2019-09-26 11:32] VITALS: BP 145/67; PULSE 58; RESP 16; TEMP 36.6; O2SAT 99; BMI 24.5
--- NOTE | 2019-09-26 11:50 | PCM.RU.PYE ---
Admission Information Status Changes from Prescreening?: No changes Identified Actual Problem List:: Falls, Pain, ALteration in Cmfrt, Mobility Impaired, Self Care Deficit, Diabetes, Hyperglycemia Potential Problem List:: DVT, UTI, Falls, Skin Integrity, Depression Risk of Complications DVT: LMWH, DIANA Hose Bleeding: Monitor Lab Values, Nursing to Teach Precautions for anti-coagulation therapy., Wound, if applicable, to be assessed every shift. Infection: Clinical Staff to Monitor for S/S of infection:, S/S of infection include fever, redness, warmth, etc. Urinary Tract Infection: Monitor for frequency, burning, discomfort, or incontinence., Nursing will obtain urine sample for urinalysis and C&S when ordered. Aspiration: Clinical staff will monitor for coughing, drooling, congestion., Speech will evaluate swallowing and dsyphasia., Nursing will monitor patient swallowing during meals. Falls: Patient will be evaluated for Fall Precautions, Patient will be placed on Fall Precautions as indicated per protocol. Skin Breakdown: Nursing will assess skin daily using assessment tool., Nursing will place on Skin Breakdown Precautions as indicated. Pain: Clinical staff will assess patient's pain level per protocol., Medications will be given, if needed, and the pain level reassessed., Other methods: Massage, distraction, decrease stimulus, etc. used PRN. Plan of Care Patient requires physician specializing in physical medicine and rehab oversight to provide close medical supervision of rehab issues including: Pain Management, Sleep Problems, Bowel and Bladder, Medical and co-morbidity Management, DVT prophylaxis, Rehabilitation Leadership, Coordination of treatment team Patient needs Physical Therapy: For a minimum of 1 hour, At least 5 out of 7 days Patient needs Physical Therapy to improve:: Mobility, Mobility, Mobility, Strengthening, Transfers, Stretching, ROM, Endurance, Stairs, Gait, Balance Patient needs Occupational Therapy: For a minimum of 1 hour, At least 5 out of 7 days Patient needs Occupational Therapy to improve ADL's incl.: Eating, Grooming, Bathing, Dressing, Toileting, Toilet transfers, Community Reintegration, Higher functioning activities, Household tasks, Adaptive Equipment, Splinting, Other activities as determined Patient requires 24/7 Rehabilitation Nursing for: Pain Issues, Identifying and preventing risk factors, Monitoring and reporting current medical conditions, Assisting with ambulation, transfer, and all ADL's, Teaching patients about disease process and medications, Family teaching, Providing safe environment, Bowel and Bladder Issues, Skin integrity, Medication Management Patient needs Surgical Physician Assistant/ Case Management for: Discharge Planning, Arranging Home Equipment or Services, Family Interventions Patient needs Dietary and Nutrition Services for: Adequate Nutrition, Nutritional Supplements, Nutritional Education Goals Patient will remain: free from falls, or injury at time of discharge. Patient will perform bed mobility at: MOD I level of assist. Patient will complete transfers from bed to chair at: MOD I level of assist. Patient will ambulate: 100 feet, with MOD I assist, with LRD Patient will complete upper body dressing at: MOD I level of assist. Patient will complete lower body dressing at: MOD I level of assist. Patient will complete toileting at: MOD I level of assist. Patient will perform bathing at: MOD I level of assist. Patient will complete grooming at: MOD I level of assist. Patient will complete home management skills at: MOD I level of assist. Patient will achieve: 12 stairs, at MOD I assist Patient will have pain level of: of 3 or less Patient's skin will: remain intact, free from infection. Patient will receive: adequate nutrition. Discharge Planning Pt Prognosis for Sig. Practical Improv. w/in Reasonable Time: Good Estimated Length of stay (days): 14 Anticipated D/C Destination: Home Was Preadmission Assessment Accurate?: Yes
--- NOTE | 2019-09-26 11:53 | PCM.HP.STD ---
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 She lives with her and she has 3 steps to get into the house and there are 4 floors of the house. There is a half bath on the first floor. He bedroom is on the third floor. She drives. 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 She has osteoporosis that was found on a DEXA at [facility]. She is on Calcium and Vitamin D. No bisphosphonates and no Actonel or Miacalcin. She denies history of coronary artery disease, congestive heart failure, cardiac dysrhythmia, stroke, peripheral arterial disease. She tells me that she has a few low blood sugars every week and she has some high BS's at times. She has an insulin pump. 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 S/P ORIF (open reduction internal fixation) fracture (Chronic) left hip, 05/02/15, Dr Lilli schreiber Osteoporosis (Chronic) Hypertension (Chronic) Type I diabetes mellitus (Chronic) Allergies No Known Allergies Allergy (Verified 09/24/19 12:29) Home Medications: Ambulatory Orders Medication Instructions Recorded Aspirin [Aspirin, Baby] 81 mg PO DAILY 04/30/15 Metoprolol Tartrate [Lopressor 25 mg PO BID 04/30/15 (beta trevor)] Lovastatin [Mevacor] 20 mg PO DAILY 12/17/15 Calcium (Elemental) [Os-Javier 500] 1,000 mg PO BIDCM 09/24/19 Ergocalciferol [Vitamin D] 50,000 units PO QWEEK 09/24/19 Furosemide [Lasix] 20 mg PO DAILY 09/24/19 Losartan Potassium 50 mg PO DAILY 09/24/19 Insulin Lispro [Humalog] See Protocol SUBCUT TID #1 09/26/19 cartridge Losartan Potassium [Cozaar] 50 mg PO QHS #0 09/26/19 Oxycodone [Oxyir] 5 mg PO Q4H PRN PRN 3 Days #10 tab 09/26/19 Senna/Docusate Sodium [Senokot-S] 2 tab PO BID PRN PRN tab 09/26/19 Surgical History: total hip arthroplasty - Left after a fall and traumatic hip fracture, - - Thyroglossal cyst removal, , D&C Psychiatric History: No pertinent psych hx 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..since the repair of the hip fracture, Light Headedness - on the day she fell recently. Denies: Chest Pain, Claudication, Orthopnea, Palpitations, Paroxysmal Noc. Dyspnea, Syncope Respiratory: Denies: Cough, Shortness of Breath, Shortness of breath at rest, Shortness of breath upon exertion, Sputum production Gastrointestinal: Reports: Constipation - she is taking 2 GM of calcium a day. Denies: Abdominal Pain, Diarrhea, Nausea, Vomiting Genitourinary: Denies: Dysuria, Frequency, Retention, Urgency Gynecological: Denies: Breast symptoms Musculoskeletal: Reports: Joint stiffness, - - pain in the left groin and in the Left buttock since the recent fall. Denies: Joint Pain, Joint Tenderness Skin: Reports: Pruritis - of the Left leg....she has stasis dermatitis. Denies: Rash, Wounds Neurological: Denies: Balance problems, Change in Speech, Slurred speech, Confusion, Focal weakness, Headaches, Incoordination, Numbness, Tingling, Tremor, Seizures Psychiatric: Denies: Anxiety, Depression, Homicidal Ideations, Suicidal Ideations Endocrine: Denies: Change in Body Habitus Hematologic/ Lymphatic: Denies: Easy Bruising, Easy Bleeding, Hx of blood clot VTE Information - Inpt Only VTE Present on Admission: No VTE Mechan Device Prophylaxis: Knee High DIANA Hose VTE Pharm Prophylaxis ordered?: Yes Patient Problems: Active and Suspected Problems Pelvic fracture (Acute) - Physical Exam Vitals/I&O's: Vital Signs Temp Pulse Resp BP Pulse Ox 97.8 F 58 L 16 145/67 H 99 09/26/19 11:32 09/26/19 11:32 09/26/19 11:32 09/26/19 11:32 09/26/19 11:32 Oxygen Delivery Method Room Air Weight: 138 lb 6.4 oz Body Mass Index (BMI) 24.5 Finger Stick Blood Glucose 349 General: Alert, Oriented x3, Cooperative, No apparent distress, Well developed, Well nourished, - - Sitting comfortably in the bedside chair HEENT: Atraumatic, PERRLA, EOMI, Normocephalic Oral: No Gingival or Mucosal Lesions/ Ulcerations, Dry Mucosa Neck: Supple, No JVD, Negative Carotid Bruits, No Nodes, Trachea Midline Lungs: Clear to auscultation, Normal air movement, No rhonchi, No wheeze, No rales Cardiovascular: Regular rate, Regular Rhythm, Normal S1, Normal S2, No murmurs, No rub noted, No Gallop Abdomen: Bowel Sounds Present, Soft, Non Tender, Non-Distended, - - No guarding with palpation Extremities: No clubbing, No cyanosis, Capillary Refill Less than 3 Seconds, Edema - she has edema at the sock line on the LLE. there is no edema of the right LE. Skin: No rashes, No breakdown, - - There is stasis dermatitis of the LLE that is worst laterally at the ankle. The skin is dry and flakey. She also has large superficial varicosities of the LLE. Musculoskeletal: No Tenderness to Palpation of Joints or Extremities, Arthritic Changes - R>L hand. She is right hand dominant Neurological: Cranial nerves II-XII grossly intact, Neuro grossly intact Psych/Mental Status: Normal Affect, Appropriate Current Medications Acetaminophen (Tylenol) 1,000 mg PO Q8H [facility] Atorvastatin Calcium (Lipitor) 5 mg PO QHS [facility] Bisacodyl (Dulcolax) 10 mg RECTAL .PRN X 1 PRN PRN Reason: Constipation Calcium Carbonate (Os-Javier 500) 750 mg PO BIDCM [facility] Enoxaparin Sodium (Lovenox) 30 mg SC DAILY [facility] Ergocalciferol (Vitamin D) 50,000 unit PO QWEEK [facility] Famotidine (Pepcid) 20 mg PO DAILY [facility] Furosemide (Lasix) 20 mg PO DAILY [facility] Insulin Human Lispro (Humalog Kwikpen (Bkc)) 0 unit SC ACHS [facility]; Protocol Losartan Potassium (Cozaar) 25 mg PO DAILY [facility] Magnesium Hydroxide (Milk Of Magnesia) 30 ml PO .PRN X 1 PRN PRN Reason: Constipation Melatonin (Melatonin) 3 mg PO QHS PRN PRN Reason: INSOMNIA Metoprolol Tartrate (Lopressor (Beta Trevor)) 25 mg PO BID [facility] Oxycodone HCl (Oxyir) 5 mg PO Q4H PRN PRN PRN Reason: Pain Score 4-5/10 Senna/Docusate Sodium (Senokot-S, Kimi-Colace) 2 tablet PO BID [facility] Assessment/Plan All Active Problems Pelvic fracture (Acute) 1. 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 HTN 3. HLD-continue statin 4. Type I DM for 63Y - she tells me that her BS's have been high in the hospital and she does not know if her pump is functioning accurately...she is getting messages on the device that she has never seen before. Will consult Dr. Pepper for management of the insulin pump 5. osteoporosis - on Calcium and vitamin D....may need to add a Bisphosphonate. will obtain from Dr. Hai Posadas a copy of the most recent DEXA scan 6. hx of a left hip fracture due to a fall and also a left wrist fracture after a fall.....suspect she is going to need a bisphosphonate 7. Venous insufficiency of the LLE with chronic edema and stasis dermatitis - DC the Lasix and institute DIANA hose and elevation. 8. Stage III chronic renal failure-on an ARB Hemoglobin A1c, CBC, CMP, magnesium, phosphorus in the a.m. Accu-Chek blood sugars before meals and at bedtime Consult Dr. Pepper for management of the insulin pump PLAN PT for gait stability OT for ADL's ST for evaluation Analgesics as needed Bowel protocol Fall precautions Assess for Anxiety/Depression GI prophylaxis with famotidine 20 mg p.o. daily DVT prophylaxis with Lovenox 30 mg subcu daily and DIANA hose-creatinine clearance is 29. Follow up with Dr. Hai Posadas following DC from Rehab Code Visit Inpatient E&M: 16805 Init Hosp L3
[2019-09-26 12:21] LABS: Hemoglobin A1c 8.5 % (4.2-6.3)
[2019-09-26 13:10] LABS: Bedside Glucose 315 mg/dL (70-110)
[2019-09-26] MEDS: Acetaminophen 500 MG Tablet 1000 MG PO ×2 (13:43→22:11)
[2019-09-26] MEDS: Magnesium Hydroxide 30 ML UDC PO (13:44)
--- NOTE | 2019-09-26 14:09 | NURSING ---
spoke with dr. thomson regarding consult and insulin and insulin pump management while here. [employer] called per this rn and trouble shooted pump error and pt did not receive any insulin since 0900 this am and bs check reading 315. order to dc own insulin pump for now and will come in to talk with pt. pt to have nov coverage while waiting. pt disconnected pump and agreeable
[2019-09-26] MEDS: Insulin Lispro 100 UNIT/ML INSULN.PEN SC ×2 (14:36→22:05)
[2019-09-26 16:35] VITALS: O2SAT 96
--- NOTE | 2019-09-26 16:56 | PCM.CONS.B ---
Problem List (1) Type I diabetes mellitus Status: Chronic Qualifiers: Diabetes mellitus complication status: with hyperglycemia Qualified Code(s): E10.65 - Type 1 diabetes mellitus with hyperglycemia (2) Insulin pump fitting or adjustment Status: Acute - Consult Date of Consult: 09/26/19 HPI: 78 year old woman in the hospital with pelvic fracture. Diabetes for 60 years. On insulin pump for 20 years. She is using a Medtronic 630G with Laura sensor. This morning she had a pump alarm. She did not recognize the alarm. Later she had alarms for low insulin. This was confusing to her. I called [employer] support and we went through the pump history. The firs alarm was for a self diagnostic test. The pump passed the self diagnostic test. Later, she got multiple alarms for low insulin. The patient reports that she only puts about 50 units of insulin in the pump and waits until it is completely out of insulin before changing her site. I explained to her that even though that has been working for her, the pump doesn't like it. She should put plenty of insulin in her reservoir and then change the pump when she gets down to 20 units. I explained that her insurance will cover 2 vials of insulin a month and she shouldn't worry about wasting insulin. In my presence, she was able to change her reservoir, and put in a new site. She did have difficulty finding the correct screen at the beginning. EXAM: She is alert and oriented times three. She is able to give an accurate history and she answers all questions appropriately. She is well nourished and healthy appearing. She is comfortably sitting in reclining chair. HEENT exam is grossly normal. Lungs are clear CV RRR Abdomen is soft. Her insulin pump sites are well healed. There is no lipohypertrophy or infection at her old sites. No edema. Assessment: 78 year old type 1 diabetic doing well on insulin pump. Pump did diagnostic testing today which was confusing to her. She is waiting too long to change her reservoir, and we discussed this in detail. I believe that she is safe to use her pump. I would suggest that family checks in with her frequently, the first few days after discharge to be sure that she is interacting with her pump properly. I will follow her while she is in house and assist with blood sugar control. Nursing will call me for any glucose over 250 and if there are any problems. Elton Pepper MD
[2019-09-26] MEDS: Calcium (Elemental) 500 MG Tablet 750 MG PO (17:00)
[2019-09-26 17:11] LABS: Bedside Glucose 352 mg/dL (70-110)
[2019-09-26] MEDS: Insulin Bolus Pump SC (17:13)
--- NOTE | 2019-09-26 17:16 | NURSING ---
dr thomson in and going over with pt insuling pump and instructions. pump checked per and thru medtr[employer] and ok to use here. pt felt that wanted to make sure pump wasnt going to screw up when got home if chose to not use while here. pt aware that had to use accucheck per policy for documentation of blood sugars while here. pt to give on boluses however per readings. new insulin cartridge instilled per pt with dr. arriaga onlooking. no questions voiced.
[2019-09-26 20:41] LABS: Bedside Glucose 402 mg/dL (70-110)
[2019-09-26 21:10] VITALS: BP 161/72; PULSE 62; RESP 18; TEMP 36.4; O2SAT 95
[2019-09-26 22:09] VITALS: PULSE 64
[2019-09-26] MEDS: Metoprolol Tartrate 25 MG Tablet PO (22:09)
[2019-09-26] MEDS: Senna/Docusate Sodium 1 Tablet 2 TABLET PO (22:09)
[2019-09-26] MEDS: Atorvastatin Calcium 10 MG Tablet 5 MG PO (22:10)
[2019-09-27 00:11] LABS: Bedside Glucose 243 mg/dL (70-110)
[2019-09-27] MEDS: Acetaminophen 500 MG Tablet 1000 MG PO ×3 (05:09→21:08)
[2019-09-27 06:26] LABS: Bedside Glucose 158 mg/dL (70-110)
[2019-09-27 06:55] LABS: Hematocrit 33.2 % (37-47); Hemoglobin 11.3 g/dL (12.0-15.0); Mean Corpuscular Hgb 30.8 pg (27.0-32.0); Mean Corpuscular Volume 90.5 fL (81-99); Mean Platelet Vol. 9.3 fl (6.2-12.0); Platelet Count 146 K/mm3 (150-450); RBC Distribution Width CV 12.5 % (11.6-14.6); RBC Distribution Width SD 41.1 fl (35.1-43.9); Red Blood Count 3.67 M/mm3 (4.2-5.4); White Blood Count 5.2 K/mm3 (4.4-11.0)
[2019-09-27 07:00] VITALS: BP 154/72; PULSE 69; RESP 18; TEMP 36.7; O2SAT 96
[2019-09-27 07:12] LABS: ALB/GLOB Ratio 0.8 RATIO (0.9-2.4); AST(SGOT) 16 U/L (15-37); Alanine Aminotransfer ALT/SGPT 14 U/L (13-56); Albumin, Serum 2.7 g/dL (3.2-5.0); Alkaline Phosphatase 62 U/L (45-117); Anion Gap 8 (5-15); BUN 20 mg/dL (7-18); BUN/Creat Ratio 20.2 RATIO (10-20); Calcium,Total 8.9 mg/dL (8.5-10.1); Chloride 102 mmol/L (98-107); Creatinine, Serum 0.99 mg/dL (0.55-1.02); EST Glomerular Filtration Rate 57 mL/min (>60); Est Glom Filt Rate - Afr Amer 69 mL/min (>60); Estimated Creatinine Clearance 37.49 ml/min; Globulin 3.4 g/dL (2.2-4.2); Glucose 158 mg/dL (74-106); Magnesium 1.7 mg/dL (1.6-2.6); Phosphorus 3.6 mg/dL (2.5-4.9); Potassium 4.1 mmol/L (3.5-5.1); Protein, Total 6.1 g/dL (6.4-8.2); Sodium Level 138 mmol/L (136-145)
[2019-09-27 07:30] VITALS: O2SAT 93
[2019-09-27 07:41] VITALS: BP 154/72; PULSE 69
[2019-09-27] MEDS: Metoprolol Tartrate 25 MG Tablet PO ×2 (07:41→21:10)
[2019-09-27] MEDS: Losartan Potassium 50 MG Tablet 25 MG PO (07:41)
[2019-09-27] MEDS: Calcium (Elemental) 500 MG Tablet 750 MG PO ×2 (07:41→16:14)
[2019-09-27] MEDS: Famotidine 20 MG Tablet PO (07:41)
[2019-09-27] MEDS: Insulin Bolus Pump SC (07:42)
[2019-09-27] MEDS: Enoxaparin 30 MG/0.3 ML Syringe SC (07:42)
[2019-09-27 11:06] LABS: Bedside Glucose 224 mg/dL (70-110)
--- NOTE | 2019-09-27 12:00 | NURSING ---
Dr. Pepper called and updated on current blood sugars.
--- NOTE | 2019-09-27 16:30 | NURSING ---
Dr. ePpper aware of current blood sugar and new order for 6u additional units to be given by nurse.
[2019-09-27] MEDS: Insulin Lispro 100 UNIT/ML INSULN.PEN 6 UNIT SC (16:49)
[2019-09-27 17:01] LABS: Bedside Glucose 288 mg/dL (70-110)
[2019-09-27 19:52] VITALS: BP 114/65; PULSE 70; RESP 20; TEMP 36.6; O2SAT 96
[2019-09-27] MEDS: Senna/Docusate Sodium 1 Tablet 2 TABLET PO (21:09)
[2019-09-27 21:10] VITALS: BP 114/65; PULSE 70
[2019-09-27] MEDS: Atorvastatin Calcium 10 MG Tablet 5 MG PO (21:10)
[2019-09-27 21:11] LABS: Bedside Glucose 214 mg/dL (70-110)
--- NOTE | 2019-09-28 04:57 | NURSING ---
PT QUESTIONED IF SHE WOULD LIKE TO SHOWER THIS AM. PT STATES SHE WOULD PREFER TO SHOWER TOMORROW MORNING. PT PREFERS TO CLEAN UP AT SINK THIS AM. PT ASSISTED TO BRNeha
[2019-09-28] MEDS: Enoxaparin 30 MG/0.3 ML Syringe SC (05:37)
[2019-09-28] MEDS: Acetaminophen 500 MG Tablet 1000 MG PO ×3 (05:37→21:16)
[2019-09-28 07:00] VITALS: BP 155/73; PULSE 68; RESP 16; TEMP 36.4; O2SAT 95
--- NOTE | 2019-09-28 07:00 | NURSING ---
DR. UMANA NOTIFIED THAT [facility] BLOOD SUGAR READING WAS 292 THIS AM AND THAT P'T READING VIA HER METER WAS 247. ALSO INFORMED THAT PT'S READING AT THIS MOMENT IS 256 AND STEADY. ORDERS GIVEN (SEE COMM). PT INFORMED OF DR DYSON ORDER AND PT PROGRAMS HER PUMP WITH 256 BS READING AND CARBS FOR THIS AM'S BREAKFAST WHICH IS SERVED TO HER.
[2019-09-28 07:01] LABS: Bedside Glucose 292 mg/dL (70-110)
[2019-09-28] MEDS: Insulin Bolus Pump SC ×3 (07:30→17:19)
[2019-09-28 07:47] VITALS: BP 155/73; PULSE 68
[2019-09-28] MEDS: Calcium (Elemental) 500 MG Tablet 750 MG PO ×2 (07:47→16:49)
[2019-09-28] MEDS: Losartan Potassium 50 MG Tablet 25 MG PO ×2 (07:47→12:54)
[2019-09-28] MEDS: Metoprolol Tartrate 25 MG Tablet PO ×2 (07:47→21:18)
[2019-09-28] MEDS: Famotidine 20 MG Tablet PO (07:48)
[2019-09-28 08:00] VITALS: O2SAT 97
--- NOTE | 2019-09-28 10:00 | NURSING ---
BS report called to Dr. Pepper and new order received. Patient's insulin pump inspected by this nurse and intact and insulin in pump. Patient is asymptomatic.
[2019-09-28 10:01] LABS: Bedside Glucose 404 mg/dL (70-110)
[2019-09-28] MEDS: Insulin Lispro 100 UNIT/ML INSULN.PEN 6 UNIT SC (10:23)
--- NOTE | 2019-09-28 11:38 | PCM.PN.HOSP ---
Patient Problems: Active and Suspected Problems Pelvic fracture (Acute) Insulin pump fitting or adjustment (Acute) Reason for Visit: Follow-up in rehab. Patient was discharged on 09/26 after admission for left hip pain secondary to minimally displaced left hip inferior pubic rami fracture after mechanical fall. Subjective: Patient has diabetes mellitus type 1. On insulin pump. Patient was seen by brush operator Dr. Pepper. No fever or chills. Blood pressure slightly elevated 155/73. Vitals/I&O's: Vital Signs Temp Pulse Resp BP Pulse Ox 97.6 F L 68 16 155/73 H 97 09/28/19 07:00 09/28/19 07:47 09/28/19 07:00 09/28/19 07:47 09/28/19 08:00 Oxygen Delivery Method Room Air Weight: 138 lb 6.393 oz Body Mass Index (BMI) 24.5 Finger Stick Blood Glucose 349 Intake and Output for Last 24 Hours 09/26/19 09/27/19 09/28/19 23:59 23:59 23:59 Intake Total 720 / 720 360 / 360 360 / 360 Output Total 200 / 200 200 / 200 Balance 720 / 720 160 / 160 160 / 160 General: Alert, Oriented x3, Cooperative HEENT: Atraumatic, PERRLA, EOMI, Normocephalic Neck: Supple, No JVD, Negative Carotid Bruits Lungs: Clear to auscultation, Normal air movement, No rhonchi, No wheeze, No rales Cardiovascular: Regular rate, Regular Rhythm, Normal S1, Normal S2, No murmurs Abdomen: Bowel Sounds Present, Soft, Non Tender, Non-Distended Extremities: No edema, Capillary Refill Less than 3 Seconds Skin: No rashes, No breakdown Musculoskeletal: No Tenderness to Palpation of Joints or Extremities - No tenderness to the palpation of left hip. Very slight after deep palpation of left pubic symphysis and inferior pubic ramus., Arthritic Changes Neurological: Cranial nerves II-XII grossly intact, Deep Tendon Reflexes 2+/4 and Symmetrical, Neuro grossly intact Psych/Mental Status: Normal Affect, Appropriate Laboratory Results 09/27/19 16:15: POC Glucose 288 H 09/27/19 21:00: POC Glucose 214 H 09/28/19 06:43: POC Glucose 292 H 09/28/19 09:54: POC Glucose 404 H Current Medications Acetaminophen (Tylenol) 1,000 mg PO Q8 [facility] Last Admin: 09/28/19 05:37 Dose: 1,000 mg Documented by: Atorvastatin Calcium (Lipitor) 5 mg PO QHS [facility] Last Admin: 09/27/19 21:10 Dose: 5 mg Documented by: Bisacodyl (Dulcolax) 10 mg RECTAL .PRN X 1 PRN PRN Reason: Constipation Calcium Carbonate (Os-Javier 500) 750 mg PO BIDCM [facility] Last Admin: 09/28/19 07:47 Dose: 750 mg Documented by: Enoxaparin Sodium (Lovenox) 30 mg SC DAILY@0600 [facility] Last Admin: 09/28/19 05:37 Dose: 30 mg Documented by: Ergocalciferol (Vitamin D) 50,000 unit PO QWEEK [facility] Famotidine (Pepcid) 20 mg PO DAILY [facility] Last Admin: 09/28/19 07:48 Dose: 20 mg Documented by: Insulin Aspart (Pump, Bolus) 0 unit SC 0800,1200,1700,2200 [facility] Last Admin: 09/28/19 07:51 Dose: Not Given Documented by: Losartan Potassium (Cozaar) 25 mg PO DAILY [facility] Last Admin: 09/28/19 07:47 Dose: 25 mg Documented by: Magnesium Hydroxide (Milk Of Magnesia) 30 ml PO .PRN X 1 PRN PRN Reason: Constipation Melatonin (Melatonin) 3 mg PO QHS PRN PRN Reason: INSOMNIA Metoprolol Tartrate (Lopressor (Beta Trevor)) 25 mg PO BID [facility] Last Admin: 09/28/19 07:47 Dose: 25 mg Documented by: Multi-Ingredient Cream (Eucerin) 1 applic TOPICAL QHS [facility]; Protocol Last Admin: 09/27/19 21:11 Dose: 1 applicatio Documented by: Oxycodone HCl (Oxyir) 5 mg PO Q4H PRN PRN PRN Reason: Pain Score 4-5/10 Senna/Docusate Sodium (Senokot-S, Kimi-Colace) 2 tablet PO BID [facility] Last Admin: 09/28/19 07:44 Dose: Not Given Documented by: STROKE Vital Signs/Narrative: Vital Signs Pulse BP Pulse Ox 09/28/19 08:00 97 09/28/19 07:47 68 155/73 H Medical Necessity - Tobacco Use Smoking Status: Never smoker Tobacco Use: Non-smoker Assessment/Plan All Active Problems Pelvic fracture (Acute) Insulin pump fitting or adjustment (Acute) This 78-year-old female who is admitted in acute IP rehab after she was discharged from [facility]. She is admitted for debility secondary to left hip pain with minimally displaced left inferior pubic ramus fracture after mechanical fall. CT pelvis shows serpiginous lucency in the anterior acetabulum and acetabular acute minimally displaced inferior pubic rami fracture. 1. Left hip pain with minimally displaced left left inferior pubic rami fracture after mechanical fall complicated with osteoporosis: While patient was admitted in [facility], the patient was discussed with Dr. Rothman and he recommended PT OT walker and outpatient follow-up. No surgery recommended. Currently patient is on nonweightbearing until evaluated by PT and OT. The patient had left hip surgery in [address] Polanco. Vitamin D is 39. On vitamin D 50,000 units weekly. Will need outpatient evaluation for DEXA scan and bisphosphonate. PT OT, Tylenol and pain control. 2. Diabetes mellitus type 1: Patient on insulin pump with subcutaneous monitor. Shunt was seen by Dr. Pepper in rehab for insulin pump alarm. Actually it was for low insulin reserve. Insulin pump is working good. Dr. Pepper note reviewed. Call Dr. Pepper if glucose more than 250 or problems with the insulin pump. A1c 8.5. Glucose is between 200-338 mg/dL. 3. Hypertension and dyslipidemia: Losartan dose increased to 50 mg daily. On a statin. 4. VTE prophylaxis: Moderate risk and on enoxaparin 5. Left lower extremity chronic venous insufficiency with chronic edema and stasis dermatitis: On DIANA hose. 6. Stage III chronic kidney disease: On ARB. BUN/creatinine 20/0.99. Estimated creatinine clearance 37 mm/min. Advanced care planning: Patient wishes to be full CODE STATUS at this time. Code Visit Inpatient E&M: 03554 Subs Hosp L2
[2019-09-28 12:00] LABS: Bedside Glucose 338 mg/dL (70-110)
[2019-09-28 16:56] LABS: Bedside Glucose 175 mg/dL (70-110)
[2019-09-28 20:15] VITALS: BP 123/63; PULSE 67; RESP 16; TEMP 36.8; O2SAT 96
[2019-09-28 21:11] LABS: Bedside Glucose 250 mg/dL (70-110)
[2019-09-28 21:18] VITALS: BP 123/63; PULSE 67
[2019-09-28] MEDS: Atorvastatin Calcium 10 MG Tablet 5 MG PO (21:18)
[2019-09-29] MEDS: Enoxaparin 30 MG/0.3 ML Syringe SC (05:39)
[2019-09-29] MEDS: Acetaminophen 500 MG Tablet 1000 MG PO ×3 (05:40→20:14)
[2019-09-29 06:41] LABS: Bedside Glucose 220 mg/dL (70-110)
[2019-09-29 07:32] VITALS: BP 157/68; PULSE 68; RESP 16; TEMP 36.9; O2SAT 94
--- NOTE | 2019-09-29 07:51 | PCM.PROGNOTE ---
Patient Problems: Active and Suspected Problems Pelvic fracture (Acute) Insulin pump fitting or adjustment (Acute) - Physical Exam Vitals/I&O's: Vital Signs Temp Pulse Resp BP Pulse Ox 98.5 F 68 16 157/68 H 94 09/29/19 07:32 09/29/19 07:32 09/29/19 07:32 09/29/19 07:32 09/29/19 07:32 Oxygen Delivery Method Room Air Weight: 138 lb 6.393 oz Body Mass Index (BMI) 24.5 Finger Stick Blood Glucose 349 Intake and Output for Last 24 Hours 09/27/19 09/28/19 09/29/19 23:59 23:59 23:59 Intake Total 360 / 360 720 / 720 Output Total 200 / 200 400 / 400 Balance 160 / 160 320 / 320 General: Alert, Oriented x3, Cooperative, Well nourished HEENT: Atraumatic, PERRLA, EOMI, Normocephalic Lungs: Clear to auscultation, Normal air movement Cardiovascular: Regular rate Abdomen: Soft Psych/Mental Status: Normal Affect Laboratory Results 09/28/19 09:54: POC Glucose 404 H 09/28/19 11:58: POC Glucose 338 H 09/28/19 16:48: POC Glucose 175 H 09/28/19 20:59: POC Glucose 250 H 09/29/19 06:33: POC Glucose 220 H Current Medications Acetaminophen (Tylenol) 1,000 mg PO Q8 [facility] Last Admin: 09/29/19 05:40 Dose: 1,000 mg Documented by: Atorvastatin Calcium (Lipitor) 5 mg PO QHS [facility] Last Admin: 09/28/19 21:18 Dose: 5 mg Documented by: Bisacodyl (Dulcolax) 10 mg RECTAL .PRN X 1 PRN PRN Reason: Constipation Calcium Carbonate (Os-Javier 500) 750 mg PO BIDCM [facility] Last Admin: 09/28/19 16:49 Dose: 750 mg Documented by: Enoxaparin Sodium (Lovenox) 30 mg SC DAILY@0600 [facility] Last Admin: 09/29/19 05:39 Dose: 30 mg Documented by: Ergocalciferol (Vitamin D) 50,000 unit PO QWEEK [facility] Famotidine (Pepcid) 20 mg PO DAILY [facility] Last Admin: 09/28/19 07:48 Dose: 20 mg Documented by: Insulin Aspart (Pump, Bolus) 0 unit SC 0800,1200,1700,2200 [facility] Last Admin: 09/28/19 21:17 Dose: Not Given Documented by: Losartan Potassium (Cozaar) 50 mg PO DAILY [facility] Magnesium Hydroxide (Milk Of Magnesia) 30 ml PO .PRN X 1 PRN PRN Reason: Constipation Melatonin (Melatonin) 3 mg PO QHS PRN PRN Reason: INSOMNIA Metoprolol Tartrate (Lopressor (Beta Trevor)) 25 mg PO BID [facility] Last Admin: 09/28/19 21:18 Dose: 25 mg Documented by: Multi-Ingredient Cream (Eucerin) 1 applic TOPICAL QHS [facility]; Protocol Last Admin: 09/28/19 21:19 Dose: 1 applicatio Documented by: Oxycodone HCl (Oxyir) 5 mg PO Q4H PRN PRN PRN Reason: Pain Score 4-5/10 Senna/Docusate Sodium (Senokot-S, Kimi-Colace) 2 tablet PO BID [facility] Last Admin: 09/28/19 21:16 Dose: Not Given Documented by: Capacity - Capacity Assessment Tool Can the patient understand benefits, risks and alternatives?: Yes Can the patient make a logical, rational choice?: Yes Medical Necessity - Tobacco Use Smoking Status: Never smoker Tobacco Use: Non-smoker Assessment/Plan All Active Problems Pelvic fracture (Acute) Insulin pump fitting or adjustment (Acute) 1. Type 1 Diabetes with insulin pump Her blood sugars are running high. She states she is usually much more active and the food is different. Insulin pump is in place and functioning. I reviewed her Laura CGM and changed the target range. I established a second basal on her pump labeled sick day and increased her basal rates by 0.1 unit/hour. I instructed her that once her activity increases, she can go back to her original basal. I showed her how to do that.
[2019-09-29] MEDS: Insulin Bolus Pump SC ×3 (08:16→17:30)
[2019-09-29] MEDS: Calcium (Elemental) 500 MG Tablet 750 MG PO ×2 (08:17→17:29)
[2019-09-29] MEDS: Losartan Potassium 50 MG Tablet PO (08:18)
[2019-09-29 08:19] VITALS: PULSE 68
[2019-09-29] MEDS: Metoprolol Tartrate 25 MG Tablet PO ×2 (08:19→20:14)
[2019-09-29] MEDS: Famotidine 20 MG Tablet PO (08:19)
--- NOTE | 2019-09-29 08:54 | PN_ITS ---
Patient Problems: Active and Suspected Problems Pelvic fracture (Acute) Insulin pump fitting or adjustment (Acute) Subjective: Afebile VSS -systolic blood pressures occasionally in the 150s. Maintaining appropriate oxygen saturation on RA-94 to 97% on room air Oral intake is good Discussed with nursing - no problems that need addressed Reviewed the PT/OT notes Medication list reviewed. Blood sugar record reviewed All lab was personally reviewed. Hemoglobin A1c was 8.5. BUN was mildly increased at 20 with a creatinine of 0.99. I reviewed Dr. Pepper's note and greatly appreciate her input. Blood sugars are coming under better control with adjustments in the insulin dosing. She is still complaining of having a difficult time sleeping at night. She awakens frequently. Has not tried the Melatonin. Pain is adequately controlled with Acetaminophen. No complaints other than not sleeping well. I spent time with her explaining how bone heals and how long it will take and why it is very important to limit activity until it heals. No driving a tractor or riding on a skee sled or working outside on uneven ground. She has a trip planned to [place] in mid October and wonders if she will be able to make the trip....I suspect if she truly sticks to the recommendations on activity this will be possible.....I mentioned she [place] want [place] - Physical Exam Vitals/I&O's: Vital Signs Temp Pulse Resp BP Pulse Ox 98.5 F 68 16 157/68 H 94 09/29/19 07:32 09/29/19 08:19 09/29/19 07:32 09/29/19 07:32 09/29/19 07:32 Oxygen Delivery Method Room Air Weight: 138 lb 6.393 oz Body Mass Index (BMI) 24.5 Finger Stick Blood Glucose 349 Intake and Output for Last 24 Hours 09/27/19 09/28/19 09/29/19 23:59 23:59 23:59 Intake Total 360 / 360 720 / 720 Output Total 200 / 200 400 / 400 Balance 160 / 160 320 / 320 General: Alert, Oriented x3, Cooperative, No apparent distress, Well developed, Well nourished Oral: Moist Mucosa Neck: Trachea Midline Lungs: Clear to auscultation, Normal air movement Cardiovascular: Regular rate, Regular Rhythm, Normal S1, Normal S2, No Gallop Abdomen: Bowel Sounds Present, Soft, Non Tender, Non-Distended Extremities: No edema, No Calf Tenderness Skin: No rashes, No breakdown Musculoskeletal: No Muscle Wasting, Tenderness - in the left groin and in the left SI area Neurological: Cranial nerves II-XII grossly intact, Neuro grossly intact Psych/Mental Status: Normal Affect, Appropriate Laboratory Results 09/28/19 09:54: POC Glucose 404 H 09/28/19 11:58: POC Glucose 338 H 09/28/19 16:48: POC Glucose 175 H 09/28/19 20:59: POC Glucose 250 H 09/29/19 06:33: POC Glucose 220 H Current Medications Acetaminophen (Tylenol) 1,000 mg PO Q8 [facility] Last Admin: 09/29/19 05:40 Dose: 1,000 mg Documented by: Atorvastatin Calcium (Lipitor) 5 mg PO QHS [facility] Last Admin: 09/28/19 21:18 Dose: 5 mg Documented by: Bisacodyl (Dulcolax) 10 mg RECTAL .PRN X 1 PRN PRN Reason: Constipation Calcium Carbonate (Os-Javier 500) 750 mg PO BIDCM [facility] Last Admin: 09/29/19 08:17 Dose: 750 mg Documented by: Enoxaparin Sodium (Lovenox) 30 mg SC DAILY@0600 [facility] Last Admin: 09/29/19 05:39 Dose: 30 mg Documented by: Ergocalciferol (Vitamin D) 50,000 unit PO QWEEK [facility] Famotidine (Pepcid) 20 mg PO DAILY [facility] Last Admin: 09/29/19 08:19 Dose: 20 mg Documented by: Insulin Aspart (Pump, Bolus) 0 unit SC 0800,1200,1700,2200 [facility] Last Admin: 09/29/19 08:16 Dose: 6.4 unit Documented by: Losartan Potassium (Cozaar) 50 mg PO DAILY [facility] Last Admin: 09/29/19 08:18 Dose: 50 mg Documented by: Magnesium Hydroxide (Milk Of Magnesia) 30 ml PO .PRN X 1 PRN PRN Reason: Constipation Melatonin (Melatonin) 3 mg PO QHS PRN PRN Reason: INSOMNIA Metoprolol Tartrate (Lopressor (Beta Trevor)) 25 mg PO BID [facility] Last Admin: 09/29/19 08:19 Dose: 25 mg Documented by: Multi-Ingredient Cream (Eucerin) 1 applic TOPICAL QHS [facility]; Protocol Last Admin: 09/28/19 21:19 Dose: 1 applicatio Documented by: Oxycodone HCl (Oxyir) 5 mg PO Q4H PRN PRN PRN Reason: Pain Score 4-5/10 Senna/Docusate Sodium (Senokot-S, Kimi-Colace) 2 tablet PO BID [facility] Last Admin: 09/29/19 08:19 Dose: Not Given Documented by: Medical Necessity - Tobacco Use Smoking Status: Never smoker Tobacco Use: Non-smoker Assessment/Plan All Active Problems Pelvic fracture (Acute) Insulin pump fitting or adjustment (Acute) 1. 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 HTN - systolic is frequently elevated 3. HLD-continue statin 4. Type I DM for 63Y - she tells me that her BS's have been high in the hospital and she does not know if her pump is functioning accurately...she is getting messages on the device that she has never seen before. Will consult Dr. Pepper for management of the insulin pump 5. osteoporosis - on Calcium and vitamin D....may need to add a Bisphosphonate. will obtain from Dr. Hai Posadas a copy of the most recent DEXA scan 6. hx of a left hip fracture due to a fall and also a left wrist fracture after a fall.....suspect she is going to need a bisphosphonate. Will start Miacalcin now since it does help some with the acute pain of a fracture. She will need a DEXA as an OP to evaluate the bone density. 7. Venous insufficiency of the LLE with chronic edema and stasis dermatitis - DC the [facility] DIANA hose and elevation. 8. Stage III chronic renal failure-on an ARB increase Losartan to 100 mg daily to keep the BP < 130/80 consistently Add Naprosyn 250 BID for pain.......would not continue this more than a few weeks due to the stage III CRF. Add Miacalcin 1 spray per nostril daily. Schedule Oxy IR 5 mg at HS PLAN PT for gait stability OT for ADL's ST for evaluation Analgesics as needed Bowel protocol Fall precautions Assess for Anxiety/Depression GI prophylaxis with famotidine 20 mg p.o. daily DVT prophylaxis with Lovenox 40 mg subcu daily and DIANA hose-creatinine clearance is 29. Follow up with Dr. Hai Posadas following DC from IP Rehab Code Visit Inpatient E&M: 15029 Subs Hosp L2
[2019-09-29 11:16] LABS: Bedside Glucose 275 mg/dL (70-110)
[2019-09-29 17:00] LABS: Bedside Glucose 210 mg/dL (70-110)
--- NOTE | 2019-09-29 18:03 | NURSING ---
Dr. Samuels office called and message left to return call back regarding patient's upcoming appt and the need for her insulin pump supplies.
[2019-09-29 19:50] VITALS: BP 135/60; PULSE 69; RESP 16; TEMP 36.7; O2SAT 98
[2019-09-29 20:14] VITALS: PULSE 69
[2019-09-29] MEDS: Atorvastatin Calcium 10 MG Tablet 5 MG PO (20:14)
[2019-09-29 20:21] LABS: Bedside Glucose 207 mg/dL (70-110)
[2019-09-30] MEDS: Enoxaparin 40 MG/0.4 ML Syringe SC (05:10)
[2019-09-30] MEDS: Acetaminophen 500 MG Tablet 1000 MG PO ×3 (05:11→21:08)
[2019-09-30 06:50] LABS: Bedside Glucose 195 mg/dL (70-110)
[2019-09-30 07:22] VITALS: BP 157/80; PULSE 68; RESP 16; TEMP 36.5; O2SAT 95
[2019-09-30 08:27] VITALS: BP 157/80; PULSE 68
[2019-09-30] MEDS: Metoprolol Tartrate 25 MG Tablet PO ×2 (08:27→21:09)
[2019-09-30] MEDS: Famotidine 20 MG Tablet PO (08:27)
[2019-09-30] MEDS: Losartan Potassium 50 MG Tablet PO (08:27)
[2019-09-30] MEDS: Calcium (Elemental) 500 MG Tablet 750 MG PO ×2 (08:28→16:51)
[2019-09-30] MEDS: Insulin Bolus Pump SC ×3 (08:30→17:15)
[2019-09-30 11:16] LABS: Bedside Glucose 320 mg/dL (70-110)
[2019-09-30] MEDS: Calcitonin-Salmon 1 SPRAY SPRAY NARES (12:18)
[2019-09-30] MEDS: Naproxen 250 MG Tablet PO ×2 (13:37→19:57)
[2019-09-30 16:50] LABS: Bedside Glucose 210 mg/dL (70-110)
[2019-09-30] MEDS: MELATONIN 3 MG TABLET PO (21:08)
[2019-09-30] MEDS: Atorvastatin Calcium 10 MG Tablet 5 MG PO (21:08)
[2019-09-30 21:09] VITALS: BP 149/70; PULSE 64
[2019-09-30 21:16] VITALS: BP 149/70; PULSE 64; RESP 16; TEMP 36.2
[2019-10-01 02:46] LABS: Bedside Glucose 51 mg/dL (70-110)
--- NOTE | 2019-10-01 03:13 | NURSING ---
230 pt checked her blood sugar with her machine states it was 46. This nurse used hospitals machine its now 51. 4oz orange juice given and pt refuses to eat anything states this will bring it up enough.
--- NOTE | 2019-10-01 03:16 | NURSING ---
0300 blood sugar recheck is 72 at this time. Pt still refuses to eat a snack states she is good with her blood sugar. Will continue to monitor.
[2019-10-01] MEDS: Enoxaparin 40 MG/0.4 ML Syringe SC (06:26)
[2019-10-01] MEDS: Acetaminophen 500 MG Tablet 1000 MG PO ×3 (06:27→21:50)
[2019-10-01 07:06] LABS: Bedside Glucose 236 mg/dL (70-110)
[2019-10-01 08:15] VITALS: BP 158/80; PULSE 79
[2019-10-01] MEDS: Metoprolol Tartrate 25 MG Tablet PO ×2 (08:15→21:52)
[2019-10-01] MEDS: Famotidine 20 MG Tablet PO (08:15)
[2019-10-01] MEDS: Calcium (Elemental) 500 MG Tablet 750 MG PO ×2 (08:16→16:49)
[2019-10-01] MEDS: Naproxen 250 MG Tablet PO ×2 (08:16→16:49)
[2019-10-01] MEDS: Losartan Potassium 100 MG Tablet PO (08:17)
[2019-10-01] MEDS: Calcitonin-Salmon 1 SPRAY SPRAY NARES (08:17)
[2019-10-01] MEDS: Insulin Bolus Pump SC ×3 (08:45→18:38)
[2019-10-01 09:10] VITALS: BP 158/80; PULSE 79; RESP 18; TEMP 36.6; O2SAT 98
[2019-10-01 11:35] LABS: Bedside Glucose 312 mg/dL (70-110)
--- NOTE | 2019-10-01 13:15 | PN_ITS ---
Patient Problems: Active and Suspected Problems Pelvic fracture (Acute) Insulin pump fitting or adjustment (Acute) Subjective: Afebile VSS Maintaining appropriate oxygen saturation on RA Oral intake is sometimes good and sometimes not....does not like to drink water Discussed with nursing - no problems that need addressed Reviewed the PT/OT/ST notes Medication list reviewed. Blood sugar record reviewed. Had a BS of 51 at 0:238 FBS 236. she was having difficulty falling asleep and so she was doing laps in the [place] and then watching TV. Decided to check her BS and found that it was low......she was feeling restless. No other complaints. Pain is well controlled. - Physical Exam Vitals/I&O's: Vital Signs Temp Pulse Resp BP Pulse Ox 97.9 F 79 18 158/80 H 98 10/01/19 09:10 10/01/19 09:10 10/01/19 09:10 10/01/19 09:10 10/01/19 09:10 Oxygen Delivery Method Room Air Weight: 138 lb 7.205 oz Body Mass Index (BMI) 24.5 Finger Stick Blood Glucose 349 Intake and Output for Last 24 Hours 09/29/19 09/30/19 10/01/19 23:59 23:59 23:59 Intake Total 240 / 240 880 / 880 240 / 240 Balance 240 / 240 880 / 880 240 / 240 General: Alert, Oriented x3, Cooperative, No apparent distress, - - sitting in the therapy room working a puzzle Oral: Moist Mucosa Lungs: Clear to auscultation Cardiovascular: Regular rate, Regular Rhythm, Normal S1, Normal S2, No Gallop Abdomen: Bowel Sounds Present, Soft, Non Tender, Non-Distended Extremities: No edema Skin: No rashes Neurological: Cranial nerves II-XII grossly intact, Neuro grossly intact Psych/Mental Status: Normal Affect, Appropriate Laboratory Results 09/30/19 16:44: POC Glucose 210 H 10/01/19 02:38: POC Glucose 51 L 10/01/19 07:03: POC Glucose 236 H 10/01/19 11:29: POC Glucose 312 H Current Medications Acetaminophen (Tylenol) 1,000 mg PO Q8 [facility] Last Admin: 10/01/19 06:27 Dose: 1,000 mg Documented by: Atorvastatin Calcium (Lipitor) 5 mg PO QHS [facility] Last Admin: 09/30/19 21:08 Dose: 5 mg Documented by: Bisacodyl (Dulcolax) 10 mg RECTAL .PRN X 1 PRN PRN Reason: Constipation Calcitonin [place] (Miacalcin Nasal [place]) 1 spray NARES DAILY [facility] Last Admin: 10/01/19 08:17 Dose: 1 spray Documented by: Calcium Carbonate (Os-Javier 500) 750 mg PO BIDCM [facility] Last Admin: 10/01/19 08:16 Dose: 750 mg Documented by: Enoxaparin Sodium (Lovenox) 40 mg SC DAILY@0600 [facility] [place] Last Admin: 10/01/19 06:26 Dose: 40 mg Documented by: Ergocalciferol (Vitamin D) 50,000 unit PO QWEEK [facility] Last Admin: 10/01/19 12:40 Dose: 50,000 unit Documented by: Famotidine (Pepcid) 20 mg PO DAILY [facility] [place] Last Admin: 10/01/19 08:15 Dose: 20 mg Documented by: Insulin Aspart (Pump, Bolus) 0 unit SC 0800,1200,1700,2200 [facility] Last Admin: 10/01/19 12:40 Dose: 6.1 unit Documented by: Losartan Potassium (Cozaar) 100 mg PO DAILY [facility] Last Admin: 10/01/19 08:17 Dose: 100 mg Documented by: Magnesium Hydroxide (Milk Of Magnesia) 30 ml PO .PRN X 1 PRN PRN Reason: Constipation Melatonin (Melatonin) 3 mg PO QHS [facility] Last Admin: 09/30/19 21:08 Dose: 3 mg Documented by: Metoprolol Tartrate (Lopressor (Beta Trevor)) 25 mg PO BID [facility] Last Admin: 10/01/19 08:15 Dose: 25 mg Documented by: Multi-Ingredient Cream (Eucerin) 1 applic TOPICAL QHS [facility]; Protocol Last Admin: 09/30/19 21:12 Dose: 1 applicatio Documented by: [facility] Stop: 10/06/19 17:01 Last Admin: 10/01/19 08:16 Dose: 250 mg Documented by: Oxycodone HCl (Oxyir) 5 mg PO Q4H PRN PRN PRN Reason: Pain Score 4-5/10 Senna/Docusate Sodium (Senokot-S, Kimi-Colace) 2 tablet PO BID [facility] Last Admin: 10/01/19 08:22 Dose: Not Given Documented by: Medical Necessity - Tobacco Use Smoking Status: Never smoker Tobacco Use: Non-smoker Assessment/Plan All Active Problems Pelvic fracture (Acute) Insulin pump fitting or adjustment (Acute) 1. 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 HTN - systolic is frequently elevated 3. HLD-continue statin 4. Type I DM for 63Y - she tells me that her BS's have been high in the hospital and she does not know if her pump is functioning accurately...she is getting messages on the device that she has never seen before. Will consult Dr. Pepper for management of the insulin pump 5. osteoporosis - on Calcium and vitamin D....may need to add a Bisphosphonate. Has not had a bone density in > 5 years. Will need a DEXA following DC 6. hx of a left hip fracture due to a fall and also a left wrist fracture after a fall.....suspect she is going to need a bisphosphonate. Will start Miacalcin now since it does help some with the acute pain of a fracture. She will need a DEXA as an OP to evaluate the bone density. 7. Venous insufficiency of the LLE with chronic edema and stasis dermatitis - DC the Lasix and institute DIANA hose and elevation. 8. Stage III chronic renal failure-on an ARB DC the Melatonin and start Trazodone 50 mg at HS continue to monitor the BP since the Losartan was increased to 100 mg daily yesterday. Team meeting tomorrow. Pt would like to go home if team feels she is ready....she was approved for 2 weeks. PLAN PT for gait stability OT for ADL's ST for evaluation Analgesics as needed Bowel protocol Fall precautions Assess for Anxiety/Depression GI prophylaxis with famotidine 20 mg p.o. daily DVT prophylaxis with Lovenox 40 mg subcu daily and DIANA hose-creatinine clearance is 29. Follow up with Dr. Hai Posadas following DC from Rehab Code Visit Inpatient E&M: 25761 Subs Hosp L1
[2019-10-01 16:00] LABS: Bedside Glucose 187 mg/dL (70-110)
[2019-10-01 19:49] VITALS: BP 138/64; PULSE 71; RESP 16; TEMP 36.4; O2SAT 98
--- NOTE | 2019-10-01 21:11 | NURSING ---
DR UMANA NOTIFIED OF [facility] GLUCOSE METER READING OF 215. NO ORDERS GIVEN. ADVISED BY DR UMANA THAT PT DOES NOT REQUIRE A SNACK BEFORE BED TODAY.
[2019-10-01 21:15] LABS: Bedside Glucose 215 mg/dL (70-110)
[2019-10-01] MEDS: Senna/Docusate Sodium 1 Tablet 2 TABLET PO (21:50)
[2019-10-01 21:52] VITALS: BP 138/64; PULSE 71
[2019-10-01] MEDS: Atorvastatin Calcium 10 MG Tablet 5 MG PO (21:52)
[2019-10-02 01:56] LABS: Bedside Glucose 62 mg/dL (70-110)
--- NOTE | 2019-10-02 01:57 | NURSING ---
PT WAKES EASILY. BLOOD SUGAR IS 62. PT GIVEN OJ WITH 1 SUGAR PACKET TO DRINK.
--- NOTE | 2019-10-02 02:05 | NURSING ---
BLOOD SUGAR RECHECKED AT 69 VIA [facility] GLUCOMETER. PT GIVEN MILK AND CRACKERS AND PEANUT BUTTER TO EAT.
--- NOTE | 2019-10-02 02:10 | NURSING ---
[facility] PLACES PAGE TO HOSPITALIST.
[2019-10-02 02:15] LABS: Bedside Glucose 69 mg/dL (70-110)
--- NOTE | 2019-10-02 02:25 | NURSING ---
PT HAS DRANK CARTON OF MILK AND HALF OF PB.RECHECKED AT [address] SAMPSON NOTIFIED. NO FURTHER ORDERS.
[2019-10-02 02:30] LABS: Bedside Glucose 97 mg/dL (70-110)
[2019-10-02] MEDS: Acetaminophen 500 MG Tablet 1000 MG PO (05:06)
[2019-10-02] MEDS: Enoxaparin 40 MG/0.4 ML Syringe SC (05:06)
[2019-10-02 06:56] LABS: Bedside Glucose 176 mg/dL (70-110)
[2019-10-02 08:00] VITALS: PULSE 67
[2019-10-02] MEDS: Famotidine 20 MG Tablet PO (08:00)
[2019-10-02] MEDS: Metoprolol Tartrate 25 MG Tablet PO (08:00)
[2019-10-02] MEDS: Senna/Docusate Sodium 1 Tablet 2 TABLET PO (08:00)
[2019-10-02] MEDS: Calcium (Elemental) 500 MG Tablet 750 MG PO (08:01)
[2019-10-02] MEDS: Naproxen 250 MG Tablet PO (08:01)
[2019-10-02] MEDS: Insulin Bolus Pump SC (08:01)
[2019-10-02] MEDS: Losartan Potassium 100 MG Tablet PO (08:01)
[2019-10-02] MEDS: Calcitonin-Salmon 1 SPRAY SPRAY NARES (08:01)
[2019-10-02 08:13] VITALS: BP 156/73; PULSE 67; RESP 16; TEMP 36.7; O2SAT 97
--- NOTE | 2019-10-02 10:18 | PCM.DC ---
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 Low fat and low salt. Your food should be the consistency of: Regular Your liquids should be the consistency of: Regular/Thin Discharge Activity: May Not Drive, Use Walker Weight Bearing Status: Weight bearing as tolerated Call your doctor if you observe: Fever of 101 or Higher, Inability to urinate, Inability to have a bowel movement, Shortness of breath, Dizziness, Fainting spells, Chest pain, Calf discomfort, Uncontrolled pain Instructions: Bone Density Study, Osteoporosis: Understanding Bone Loss, Living with Osteoporosis: Preventing Fractures Additional Instructions: 1. Bones take at least 6 weeks to heal. It takes longer if you have osteoporosis, are over the age of 70 and if you do not stick to your activity restrictions. NO working outside. 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 2. I do not see a problem with you flying to [place] in mid October. I think it would be best to get a wheelchair or a cart in the airport to take you from 1 gate to another because it is frequently a very long walk. 3. You blood pressure at times is not adequately controlled. Mostly in the morning. I have increased the Losartan (Cozaar) to 50 mg twice a day. With breakfast and at bedtime. 4. Your lab at admission reflected that you were dehydrated. You also had some lightheadedness with standing and so I discontinued the Lasix (Furosemide). The best way to control the swelling in the left leg is to wear the compression stocking from the time you arise in the morning until you go to bed and to elevate the left leg when sitting. Decreasing salt in the diet also helps. 5. I gave you a prescription for a pain pill called Oxycodone. It is a low dose and you can take it every 6 hours as needed for pain. I suspect you are going to be doing more at home than you did in rehab and you may have more pain. for the next 7-10 days take 2 500 mg Tylenol every 8 hours. After 7-10 days if you are doing well you can take the Tylenol as needed for pain. 6. I also gave you a prescription for Trazodone to help with sleep. When you have a fractured pelvis and you move around in bed it will likely hurt. If you are having a problem sleeping take a Trazodone at night when going to bed. 7. Dr. Posadas will want to get a bone density test on you called a DEXA to evaluate you for osteoporosis. In the meantime I have you on Miacalcin nasal spray to increase bone density. 8. HAPPY HOLIDAY [place]. It was a pleasure to meet you and I am very pleased with your progress in rehab. Pending Tests on Discharge: none Allergies/Adverse Reactions: Allergies No Known Allergies Allergy (Verified 09/24/19 12:29) Medications to take at Discharge Aspirin [Aspirin, Baby] 81 mg PO DAILY 04/30/15 Metoprolol Tartrate [Lopressor (beta pradip)] 25 mg PO BID 04/30/15 Lovastatin [Mevacor] 20 mg PO DAILY 12/17/15 Calcium (Elemental) [Os-Javier 500] 1,000 mg PO BIDCM 09/24/19 Ergocalciferol [Vitamin D] 50,000 units PO QWEEK 09/24/19 Oxycodone [Oxyir] 5 mg PO Q4H PRN PRN 3 Days #10 tab 09/26/19 Senna/Docusate Sodium [Senokot-S] 2 tab PO BID PRN PRN tab 09/26/19 Losartan Potassium 50 mg PO BID #60 tab 10/02/19 Oxycodone [Oxyir] 5 mg PO Q6H PRN PRN #20 tab 10/02/19 insulin lispro (U-100) 100 unit/mL subcutaneous solution 65 unit SC .continuous #60 ml 10/02/19 traZODone [Desyrel] 50 mg PO QHS PRN PRN #15 tab 10/02/19 The following prescriptions were given: traZODone [Desyrel] 50 mg PO QHS PRN PRN #15 tab PRN Reason: Insomnia Transmission Status: Received by CINDY [facility] [facility] Losartan Potassium 50 mg PO BID #60 tab Transmission Status: Received by CINDY FERNANDO RD Oxycodone [Oxyir] 5 mg PO Q6H PRN PRN #20 tab PRN Reason: Pain Score 4-5/10 Transmission Status: Received by CINDY FERNANDO RD Primary Care Physician: Hai Posadas MD [Primary Care Provider] - Please follow up with your Primary Care Physician in: 1 week Test Results: Test results from this visit will be discussed in further detail at your follow-up appointment, if applicable. Proposed Discharge Date: 10/02/19
--- NOTE | 2019-10-02 10:44 | DS.PCM_ITS ---
Discharge Date and Diagnosis - Problem List Patient Problems: Active and Suspected Problems (Last Updated 10/03/19 @ 14:10 by Savana Schaeffer) Paroxysmal supraventricular tachycardia (Acute) Date of Admission: 09/26/19 Date of Discharge: 10/02/19 - Primary Discharge Diagnosis Active and Suspected Problems Physical debility (Acute) due to pelvic fracture due to fall Pelvic fracture (Acute) Pain (Acute) Insomnia (Acute) Insulin pump fitting or adjustment (Acute) - by Dr. 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 S/P ORIF (open reduction internal fixation) fracture (Chronic) left hip, 05/02/15, Dr Lilli schreiber Hypertension (Chronic) Type I diabetes mellitus (Chronic) Hospital Course and Treatment Imaging Results: Laboratory Tests 10/02/19 10/02/19 10/02/19 Range/Units 06:47 02:24 02:07 WBC (4.4-11.0) K/mm3 RBC (4.2-5.4) M/mm3 Hgb (12.0-15.0) g/dL Hct (37-47) % MCV (81-99) fL MCH (27.0-32.0) pg MCHC (32-36) g/dL RDW Std Deviation (35.1-43.9) fl RDW Coeff of Royce (11.6-14.6) % Plt Count (150-450) K/mm3 MPV (6.2-12.0) fl Sodium (136-145) mmol/L Potassium (3.5-5.1) mmol/L Chloride (98-107) mmol/L Carbon Dioxide (21.0-32.0) mmol/L Anion Gap (5-15) BUN (7-18) mg/dL Creatinine (0.55-1.02) mg/dL Estim Creat Clear Calc ml/min Est GFR (MDRD) Af Amer (>60) mL/min Est GFR (MDRD) Non-Af (>60) mL/min BUN/Creatinine Ratio (10-20) RATIO Glucose (74-106) mg/dL Hemoglobin A1c (4.2-6.3) % Calcium (8.5-10.1) mg/dL Phosphorus (2.5-4.9) mg/dL Magnesium (1.6-2.6) mg/dL Total Bilirubin (0.20-1.00) mg/dL AST (15-37) U/L ALT (13-56) U/L Alkaline Phosphatase (45-117) U/L Total Protein (6.4-8.2) g/dL Albumin (3.2-5.0) g/dL Globulin (2.2-4.2) g/dL Albumin/Globulin Ratio (0.9-2.4) RATIO POC Glucose 176 H 97 69 L (70-110) mg/dL 10/02/19 10/01/19 10/01/19 Range/Units 01:50 21:06 15:54 WBC (4.4-11.0) K/mm3 RBC (4.2-5.4) M/mm3 Hgb (12.0-15.0) g/dL Hct (37-47) % MCV (81-99) fL MCH (27.0-32.0) pg MCHC (32-36) g/dL RDW Std Deviation (35.1-43.9) fl RDW Coeff of Royce (11.6-14.6) % Plt Count (150-450) K/mm3 MPV (6.2-12.0) fl Sodium (136-145) mmol/L Potassium (3.5-5.1) mmol/L Chloride (98-107) mmol/L Carbon Dioxide (21.0-32.0) mmol/L Anion Gap (5-15) BUN (7-18) mg/dL Creatinine (0.55-1.02) mg/dL Estim Creat Clear Calc ml/min Est GFR (MDRD) Af Amer (>60) mL/min Est GFR (MDRD) Non-Af (>60) mL/min BUN/Creatinine Ratio (10-20) RATIO Glucose (74-106) mg/dL Hemoglobin A1c (4.2-6.3) % Calcium (8.5-10.1) mg/dL Phosphorus (2.5-4.9) mg/dL Magnesium (1.6-2.6) mg/dL Total Bilirubin (0.20-1.00) mg/dL AST (15-37) U/L ALT (13-56) U/L Alkaline Phosphatase (45-117) U/L Total Protein (6.4-8.2) g/dL Albumin (3.2-5.0) g/dL Globulin (2.2-4.2) g/dL Albumin/Globulin Ratio (0.9-2.4) RATIO POC Glucose 62 L 215 H 187 H (70-110) mg/dL 10/01/19 10/01/19 10/01/19 Range/Units 11:29 07:03 02:38 WBC (4.4-11.0) K/mm3 RBC (4.2-5.4) M/mm3 Hgb (12.0-15.0) g/dL Hct (37-47) % MCV (81-99) fL MCH (27.0-32.0) pg MCHC (32-36) g/dL RDW Std Deviation (35.1-43.9) fl RDW Coeff of Royce (11.6-14.6) % Plt Count (150-450) K/mm3 MPV (6.2-12.0) fl Sodium (136-145) mmol/L Potassium (3.5-5.1) mmol/L Chloride (98-107) mmol/L Carbon Dioxide (21.0-32.0) mmol/L Anion Gap (5-15) BUN (7-18) mg/dL Creatinine (0.55-1.02) mg/dL Estim Creat Clear Calc ml/min Est GFR (MDRD) Af Amer (>60) mL/min Est GFR (MDRD) Non-Af (>60) mL/min BUN/Creatinine Ratio (10-20) RATIO Glucose (74-106) mg/dL Hemoglobin A1c (4.2-6.3) % Calcium (8.5-10.1) mg/dL Phosphorus (2.5-4.9) mg/dL Magnesium (1.6-2.6) mg/dL Total Bilirubin (0.20-1.00) mg/dL AST (15-37) U/L ALT (13-56) U/L Alkaline Phosphatase (45-117) U/L Total Protein (6.4-8.2) g/dL Albumin (3.2-5.0) g/dL Globulin (2.2-4.2) g/dL Albumin/Globulin Ratio (0.9-2.4) RATIO POC Glucose 312 H 236 H 51 L (70-110) mg/dL 09/30/19 09/30/19 09/30/19 Range/Units 16:44 11:10 05:52 WBC (4.4-11.0) K/mm3 RBC (4.2-5.4) M/mm3 Hgb (12.0-15.0) g/dL Hct (37-47) % MCV (81-99) fL MCH (27.0-32.0) pg MCHC (32-36) g/dL RDW Std Deviation (35.1-43.9) fl RDW Coeff of Royce (11.6-14.6) % Plt Count (150-450) K/mm3 MPV (6.2-12.0) fl Sodium (136-145) mmol/L Potassium (3.5-5.1) mmol/L Chloride (98-107) mmol/L Carbon Dioxide (21.0-32.0) mmol/L Anion Gap (5-15) BUN (7-18) mg/dL Creatinine (0.55-1.02) mg/dL Estim Creat Clear Calc ml/min Est GFR (MDRD) Af Amer (>60) mL/min Est GFR (MDRD) Non-Af (>60) mL/min BUN/Creatinine Ratio (10-20) RATIO Glucose (74-106) mg/dL Hemoglobin A1c (4.2-6.3) % Calcium (8.5-10.1) mg/dL Phosphorus (2.5-4.9) mg/dL Magnesium (1.6-2.6) mg/dL Total Bilirubin (0.20-1.00) mg/dL AST (15-37) U/L ALT (13-56) U/L Alkaline Phosphatase (45-117) U/L Total Protein (6.4-8.2) g/dL Albumin (3.2-5.0) g/dL Globulin (2.2-4.2) g/dL Albumin/Globulin Ratio (0.9-2.4) RATIO POC Glucose 210 H 320 H 195 H (70-110) mg/dL 09/29/19 09/29/1909/29/19 Range/Units 20:12 16:54 11:13 WBC (4.4-11.0) K/mm3 RBC (4.2-5.4) M/mm3 Hgb (12.0-15.0) g/dL Hct (37-47) % MCV (81-99) fL MCH (27.0-32.0) pg MCHC (32-36) g/dL RDW Std Deviation (35.1-43.9) fl RDW Coeff of Royce (11.6-14.6) % Plt Count (150-450) K/mm3 MPV (6.2-12.0) fl Sodium (136-145) mmol/L Potassium (3.5-5.1) mmol/L Chloride (98-107) mmol/L Carbon Dioxide (21.0-32.0) mmol/L Anion Gap (5-15) BUN (7-18) mg/dL Creatinine (0.55-1.02) mg/dL Estim Creat Clear Calc ml/min Est GFR (MDRD) Af Amer (>60) mL/min Est GFR (MDRD) Non-Af (>60) mL/min BUN/Creatinine Ratio (10-20) RATIO Glucose (74-106) mg/dL Hemoglobin A1c (4.2-6.3) % Calcium (8.5-10.1) mg/dL Phosphorus (2.5-4.9) mg/dL Magnesium (1.6-2.6) mg/dL Total Bilirubin (0.20-1.00) mg/dL AST (15-37) U/L ALT (13-56) U/L Alkaline Phosphatase (45-117) U/L Total Protein (6.4-8.2) g/dL Albumin (3.2-5.0) g/dL Globulin (2.2-4.2) g/dL Albumin/Globulin Ratio (0.9-2.4) RATIO POC Glucose 207 H 210 H 275 H (70-110) mg/dL 09/29/19 09/28/19 09/28/19 Range/Units 06:33 20:59 16:48 WBC (4.4-11.0) K/mm3 RBC (4.2-5.4) M/mm3 Hgb (12.0-15.0) g/dL Hct (37-47) % MCV (81-99) fL MCH (27.0-32.0) pg MCHC (32-36) g/dL RDW Std Deviation (35.1-43.9) fl RDW Coeff of Royce (11.6-14.6) % Plt Count (150-450) K/mm3 MPV (6.2-12.0) fl Sodium (136-145) mmol/L Potassium (3.5-5.1) mmol/L Chloride (98-107) mmol/L Carbon Dioxide (21.0-32.0) mmol/L Anion Gap (5-15) BUN (7-18) mg/dL Creatinine (0.55-1.02) mg/dL Estim Creat Clear Calc ml/min Est GFR (MDRD) Af Amer (>60) mL/min Est GFR (MDRD) Non-Af (>60) mL/min BUN/Creatinine Ratio (10-20) RATIO Glucose (74-106) mg/dL Hemoglobin A1c (4.2-6.3) % Calcium (8.5-10.1) mg/dL Phosphorus (2.5-4.9) mg/dL Magnesium (1.6-2.6) mg/dL Total Bilirubin (0.20-1.00) mg/dL AST (15-37) U/L ALT (13-56) U/L Alkaline Phosphatase (45-117) U/L Total Protein (6.4-8.2) g/dL Albumin (3.2-5.0) g/dL Globulin (2.2-4.2) g/dL Albumin/Globulin Ratio (0.9-2.4) RATIO POC Glucose 220 H 250 H 175 H (70-110) mg/dL 09/28/19 09/28/19 09/28/19 Range/Units 11:58 09:54 06:43 WBC (4.4-11.0) K/mm3 RBC (4.2-5.4) M/mm3 Hgb (12.0-15.0) g/dL Hct (37-47) % MCV (81-99) fL MCH (27.0-32.0) pg MCHC (32-36) g/dL RDW Std Deviation (35.1-43.9) fl RDW Coeff of Royce (11.6-14.6) % Plt Count (150-450) K/mm3 MPV (6.2-12.0) fl Sodium (136-145) mmol/L Potassium (3.5-5.1) mmol/L Chloride (98-107) mmol/L Carbon Dioxide (21.0-32.0) mmol/L Anion Gap (5-15) BUN (7-18) mg/dL Creatinine (0.55-1.02) mg/dL Estim Creat Clear Calc ml/min Est GFR (MDRD) Af Amer (>60) mL/min Est GFR (MDRD) Non-Af (>60) mL/min BUN/Creatinine Ratio (10-20) RATIO Glucose (74-106) mg/dL Hemoglobin A1c (4.2-6.3) % Calcium (8.5-10.1) mg/dL Phosphorus (2.5-4.9) mg/dL Magnesium (1.6-2.6) mg/dL Total Bilirubin (0.20-1.00) mg/dL AST (15-37) U/L ALT (13-56) U/L Alkaline Phosphatase (45-117) U/L Total Protein (6.4-8.2) g/dL Albumin (3.2-5.0) g/dL Globulin (2.2-4.2) g/dL Albumin/Globulin Ratio (0.9-2.4) RATIO POC Glucose 338 H 404 H 292 H (70-110) mg/dL 09/27/19 09/27/19 09/27/19 Range/Units 21:00 16:15 11:00 WBC (4.4-11.0) K/mm3 RBC (4.2-5.4) M/mm3 Hgb (12.0-15.0) g/dL Hct (37-47) % MCV (81-99) fL MCH (27.0-32.0) pg MCHC (32-36) g/dL RDW Std Deviation (35.1-43.9) fl RDW Coeff of Royce (11.6-14.6) % Plt Count (150-450) K/mm3 MPV (6.2-12.0) fl Sodium (136-145) mmol/L Potassium (3.5-5.1) mmol/L Chloride (98-107) mmol/L Carbon Dioxide (21.0-32.0) mmol/L Anion Gap (5-15) BUN (7-18) mg/dL Creatinine (0.55-1.02) mg/dL Estim Creat Clear Calc ml/min Est GFR (MDRD) Af Amer (>60) mL/min Est GFR (MDRD) Non-Af (>60) mL/min BUN/Creatinine Ratio (10-20) RATIO Glucose (74-106) mg/dL Hemoglobin A1c (4.2-6.3) % Calcium (8.5-10.1) mg/dL Phosphorus (2.5-4.9) mg/dL Magnesium (1.6-2.6) mg/dL Total Bilirubin (0.20-1.00) mg/dL AST (15-37) U/L ALT (13-56) U/L Alkaline Phosphatase (45-117) U/L Total Protein (6.4-8.2) g/dL Albumin (3.2-5.0) g/dL Globulin (2.2-4.2) g/dL Albumin/Globulin Ratio (0.9-2.4) RATIO POC Glucose 214 H 288 H 224 H (70-110) mg/dL 3 09/27/19 09/27/19 09/27/19 Range/Units 06:50 06:50 06:14 WBC 5.2 (4.4-11.0) K/mm3 RBC 3.67 L (4.2-5.4) M/mm3 Hgb 11.3 L (12.0-15.0) g/dL Hct 33.2 L (37-47) % MCV 90.5 (81-99) fL MCH 30.8 (27.0-32.0) pg MCHC 34.0 (32-36) g/dL RDW Std Deviation 41.1 (35.1-43.9) fl RDW Coeff of Royce 12.5 (11.6-14.6) % Plt Count 146 L (150-450) K/mm3 MPV 9.3 (6.2-12.0) fl Sodium 138 (136-145) mmol/L Potassium 4.1 (3.5-5.1) mmol/L Chloride 102 (98-107) mmol/L Carbon Dioxide 28.0 (21.0-32.0) mmol/L Anion Gap 8 (5-15) BUN 20 H (7-18) mg/dL Creatinine 0.99 (0.55-1.02) mg/dL Estim Creat Clear Calc 37.49 ml/min Est GFR (MDRD) Af Amer 69 (>60) mL/min Est GFR (MDRD) Non-Af 57 L (>60) mL/min BUN/Creatinine Ratio 20.2 H (10-20) RATIO Glucose 158 H (74-106) mg/dL Hemoglobin A1c (4.2-6.3) % Calcium 8.9 (8.5-10.1) mg/dL Phosphorus 3.6 (2.5-4.9) mg/dL Magnesium 1.7 (1.6-2.6) mg/dL Total Bilirubin 0.60 (0.20-1.00) mg/dL AST 16 (15-37) U/L ALT 14 (13-56) U/L Alkaline Phosphatase 62 (45-117) U/L Total Protein 6.1 L (6.4-8.2) g/dL Albumin 2.7 L (3.2-5.0) g/dL Globulin 3.4 (2.2-4.2) g/dL Albumin/Globulin Ratio 0.8 L (0.9-2.4) RATIO POC Glucose 158 H (70-110) mg/dL 09/27/19 09/26/19 09/26/19 Range/Units 00:03 20:34 16:59 WBC (4.4-11.0) K/mm3 RBC (4.2-5.4) M/mm3 Hgb (12.0-15.0) g/dL Hct (37-47) % MCV (81-99) fL MCH (27.0-32.0) pg MCHC (32-36) g/dL RDW Std Deviation (35.1-43.9) fl RDW Coeff of Royce (11.6-14.6) % Plt Count (150-450) K/mm3 MPV (6.2-12.0) fl Sodium (136-145) mmol/L Potassium (3.5-5.1) mmol/L Chloride (98-107) mmol/L Carbon Dioxide (21.0-32.0) mmol/L Anion Gap (5-15) BUN (7-18) mg/dL Creatinine (0.55-1.02) mg/dL Estim Creat Clear Calc ml/min Est GFR (MDRD) Af Amer (>60) mL/min Est GFR (MDRD) Non-Af (>60) mL/min BUN/Creatinine Ratio (10-20) RATIO Glucose (74-106) mg/dL Hemoglobin A1c (4.2-6.3) % Calcium (8.5-10.1) mg/dL Phosphorus (2.5-4.9) mg/dL Magnesium (1.6-2.6) mg/dL Total Bilirubin (0.20-1.00) mg/dL AST (15-37) U/L ALT (13-56) U/L Alkaline Phosphatase (45-117) U/L Total Protein (6.4-8.2) g/dL Albumin (3.2-5.0) g/dL Globulin (2.2-4.2) g/dL Albumin/Globulin Ratio (0.9-2.4) RATIO POC Glucose 243 H 402 H 352 H (70-110) mg/dL 09/26/19 09/26/19 Range/Units 13:08 11:54 WBC (4.4-11.0) K/mm3 RBC (4.2-5.4) M/mm3 Hgb (12.0-15.0) g/dL Hct (37-47) % MCV (81-99) fL MCH (27.0-32.0) pg MCHC (32-36) g/dL RDW Std Deviation (35.1-43.9) fl RDW Coeff of Royce (11.6-14.6) % Plt Count (150-450) K/mm3 MPV (6.2-12.0) fl Sodium (136-145) mmol/L Potassium (3.5-5.1) mmol/L Chloride (98-107) mmol/L Carbon Dioxide (21.0-32.0) mmol/L Anion Gap (5-15) BUN (7-18) mg/dL Creatinine (0.55-1.02) mg/dL Estim Creat Clear Calc ml/min Est GFR (MDRD) Af Amer (>60) mL/min Est GFR (MDRD) Non-Af (>60) mL/min BUN/Creatinine Ratio (10-20) RATIO Glucose (74-106) mg/dL Hemoglobin A1c 8.5 H (4.2-6.3) % Calcium (8.5-10.1) mg/dL Phosphorus (2.5-4.9) mg/dL Magnesium (1.6-2.6) mg/dL Total Bilirubin (0.20-1.00) mg/dL AST (15-37) U/L ALT (13-56) U/L Alkaline Phosphatase (45-117) U/L Total Protein (6.4-8.2) g/dL Albumin (3.2-5.0) g/dL Globulin (2.2-4.2) g/dL Albumin/Globulin Ratio (0.9-2.4) RATIO POC Glucose 315 H (70-110) mg/dL Dr. Elton Pepper - endocrinology Operations: None Procedures: None Summary of Care Provided: The patient is an 78 year old F with a past medical history of hypertension, hyperlipidemia, osteoporosis, type 1 diabetes mellitus (for 65 years) and chronic renal failure stage III admitted to the inpatient rehab unit at [facility] on 09/26/2019 for debility secondary to pelvic fracture, sustained in a fall, for greater than 3 hours of therapy daily with a goal of returning home at or near her prior level of independence. She lives with her and she has 3 steps to get into the house and there are 4 tami ors of the house. There is a half bath on the first floor. Her bedroom is on the third floor. She drives. 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 Blood sugars were uncontrolled at admission to the rehab unit and there was a question about a new alert coming up on her insulin pump. Dr. Elton Pepper from Endocrinology was consulted and managed the pump and the blood sugars during her admission. BS's improved significantly during her hospital admission. Calcium was within normal limits during her admission. Hemoglobin A1c was 8.5. Bun/Creat ratio was 20.2 and the patient was encouraged to increase fluid intake. Lasix was discontinued and an order for DIANA hose was entered., she has had chronic edema of the LLE since hip surgery on the left. HGB was 11.3 and the PLT's were mildly decreased, possibly secondary to Enoxaparin for DVT prophylaxis. Systolic BP was mostly above 140 throughout her admission and Losartan was increased to 50 mg BID. She was having difficulty with insomnia and was started on Trazodone 50 mg at bedtime which worked well. She progressed well with PT/OT and on 10/02/19 she requested to be discharged. This was discussed on rounds that day and everyone was in agreement that she was appropriate for discharge. She was given RX's for Trazodone 50 mg Q HS PRN , Oxycodone5 mg PO q 6H as needed for pain and Losartan 50 mg BID. She was instructed to follow up with Dr. Hai Posadas in 1 week post discharge. She will discuss with Dr. Posadas at the next visit a referral for a DEXA to assess bone density. PHYSICAL EXAM: GENERAL: alert, oriented X 3, Cooperative, NAD ORAL: moist mucosa, no mucosal lesions NECK: No JVD, supple, trachea midline LUNGS: CTA, symmetric chest expansion HEART: RRR, Normal S1 and S2, no rub, no gallop ABDOMEN: soft, NT, ND, BS present, no guarding with palpation EXTREMITIES: no edema, no cyanosis, no calf tenderness SKIN: No rashes, no breakdown NEUROLOGIC: no focal neurologic deficits PSYCH: appropriate, normal affect, pleasant This note was generated with [employer] dictation software. It may contain incorrect words, spelling, and punctuation that were not noted in checking the note before signing. Patient Problems: Active and Suspected Problems (Last Updated 10/03/19 @ 14:10 by Savana Schaeffer) Paroxysmal supraventricular tachycardia (Acute) - Physical Exam Vitals/I&O's: Vital Signs Temp Pulse Resp BP Pulse Ox 98.1 F 67 16 156/73 H 97 10/02/19 08:13 10/02/19 08:13 10/02/19 08:13 10/02/19 08:13 10/02/19 08:13 Oxygen Delivery Method Room Air Weight: 138 lb 7.205 oz Body Mass Index (BMI) 24.5 Finger Stick Blood Glucose 349 Intake and Output for Last 24 Hours 09/30/19 10/01/19 10/02/19 23:59 23:59 23:59 Intake Total 880 / 880 240 / 240 640 / 640 Balance 880 / 880 240 / 240 640 / 640 Laboratory Results 10/01/19 11:29: POC Glucose 312 H 10/01/19 15:54: POC Glucose 187 H 10/01/19 21:06: POC Glucose 215 H 10/02/19 01:50: POC Glucose 62 L 10/02/19 02:07: POC Glucose 69 L 10/02/19 02:24: POC Glucose 97 10/02/19 06:47: POC Glucose 176 H Current Medications Acetaminophen (Tylenol) 1,000 mg PO Q8 [facility] Last Admin: 10/02/19 05:06 Dose: 1,000 mg Documented by: Atorvastatin Calcium (Lipitor) 5 mg PO QHS [facility] Last Admin: 10/01/19 21:52 Dose: 5 mg Documented by: Bisacodyl (Dulcolax) 10 mg RECTAL .PRN X 1 PRN PRN Reason: Constipation Calcitonin Loma (Miacalcin Nasal Paradis) 1 spray NARES DAILY [facility] Last Admin: 10/02/19 08:01 Dose: 1 spray Documented by: Calcium Carbonate (Os-Javier 500) 750 mg PO BIDCM [facility] Last Admin: 10/02/19 08:01 Dose: 750 mg Documented by: Enoxaparin Sodium (Lovenox) 40 mg SC DAILY@0600 [facility] Last Admin: 10/02/19 05:06 Dose: 40 mg Documented by: Ergocalciferol (Vitamin D) 50,000 unit PO QWEEK [facility] Last Admin: 10/01/19 12:40 Dose: 50,000 unit Documented by: Famotidine (Pepcid) 20 mg PO DAILY [facility] Last Admin: 10/02/19 08:00 Dose: 20 mg Documented by: Insulin Aspart (Pump, Bolus) 0 unit SC 0800,1200,1700,2200 [facility] Last Admin: 10/02/19 08:01 Dose: 4 unit Documented by: Losartan Potassium (Cozaar) 100 mg PO DAILY [facility] Last Admin: 10/02/19 08:01 Dose: 100 mg Documented by: Magnesium Hydroxide (Milk Of Magnesia) 30 ml PO .PRN X 1 PRN PRN Reason: Constipation Metoprolol Tartrate (Lopressor (Beta Trevor)) 25 mg PO BID [facility] Last Admin: 10/02/19 08:00 Dose: 25 mg Documented by: Multi-Ingredient Cream (Eucerin) 1 applic TOPICAL QHS [facility]; Protocol Last Admin: 10/01/19 21:53 Dose: 1 applicatio Documented by: [facility]rox[facility] ([facility]rosyn) [facility] Stop: 10/06/19 17:01 Last Admin: 10/02/19 08:01 Dose: 250 mg Documented by: Oxycodone HCl (Oxyir) 5 mg PO Q4H PRN PRN PRN Reason: Pain Score 4-5/10 Senna/Docusate Sodium (Senokot-S, Kimi-Colace) 2 tablet PO BID [facility] Last Admin: 10/02/19 08:00 Dose: 1 tablet Documented by: [facility]) [facility] Admin: 10/01/19 21:55 Dose: Not Given Documented by: Discharge Activity: May Not Drive, Use Walker Weight Bearing Status: Weight bearing as tolerated Call your doctor if you observe: Fever of 101 or Higher, Inability to urinate, Inability to have a bowel movement, Shortness of breath, Dizziness, Fainting spells, Chest pain, Calf discomfort, Uncontrolled pain Home Medications: Medications to take at Discharge Aspirin [Aspirin, Baby] 81 mg PO DAILY 04/30/15 Metoprolol Tartrate [Lopressor (beta trevor)] 25 mg PO BID 04/30/15 Lovastatin [Mevacor] 20 mg PO DAILY 12/17/15 Calcium (Elemental) [Os-Javier 500] 1,000 mg PO BID 09/24/19 Ergocalciferol [Vitamin D] 50,000 units PO QWEEK 09/24/19 Oxycodone [Oxyir] 5 mg PO Q4H PRN PRN 3 Days #10 tab 09/26/19 Senna/Docusate Sodium [Senokot-S] 2 tab PO BID PRN PRN tab 09/26/19 Calcitonin,Loma,Synthetic [Calcitonin-Loma] 3.7 ml NS DAILY 30 Days #1 spray.pump 10/02/19 Losartan Potassium 50 mg PO BID #60 tab 10/02/19 Oxycodone [Oxyir] 5 mg PO Q6H PRN PRN #20 tab 10/02/19 insulin lispro (U-100) 100 unit/mL subcutaneous solution 65 unit SC .continuous #60 ml 10/02/19 traZODone [Desyrel] 50 mg PO QHS PRN PRN #15 tab 10/02/19 Following Prescrptions Were Given to Patient: Calcitonin,Loma,Synthetic [Calcitonin-Loma] 3.7 ml NS DAILY 30 Days #1 spray.pump Transmission Status: Received by CINDY FERNANDO RD traZODone [Desyrel] 50 mg PO QHS PRN PRN #15 tab PRN Reason: Insomnia Transmission Status: Received by CINDY FERNANDO RD Losartan Potassium 50 mg PO BID #60 tab Transmission Status: Received by CINDY FERNANDO RD Oxycodone [Oxyir] 5 mg PO Q6H PRN PRN #20 tab PRN Reason: Pain Score 4-5/10 Transmission Status: Received by CINDY FERNANDO RD Primary Care Physician: Hai Posadas MD [Primary Care Provider] - Please follow up with your Primary Care Physician in: 1 week Patient Instructions: Bone Density Study, Living with Osteoporosis: Preventing Fractures, Osteoporosis: Understanding Bone Loss Disposition: Home Minutes spent on discharge:: 35 Patient Condition:: Good Medical Necessity - Tobacco Use Smoking Status: Never smoker Tobacco Use: Non-smoker Meaningful Use Info Meaningful Use Diagnoses (Choose all that apply): None applicable Code Visit Inpatient E&M: 42635 Disch Hosp
[2019-10-02 11:54] VITALS: BP 156/73; PULSE 67; RESP 16; TEMP 36.7; O2SAT 97
--- NOTE | 2019-10-02 11:56 | NURSING ---
discharged home with family. discharged medications, instruction reviewed with pt and family. pt instructed to f/u with PCP and Dr Pepper. Denies questions or concerns.
== END 2019-10-02 11:45 | disposition home or self-care (01) | DRG 561 ==
PROVIDERS: Admitting Provider Internal Medicine; Family Provider Family Medicine; PCP Family Medicine; Referring Provider Internal Medicine; Visit Provider Internal Medicine
DX: S32.592D Other specified fracture of left pubis, subsequent encounter for fracture with routine healing (principal); E78.5 Hyperlipidemia, unspecified; E10.22 Type 1 diabetes mellitus with diabetic chronic kidney disease; N18.3 Chronic kidney disease, stage 3 (moderate); M81.0 Age-related osteoporosis without current pathological fracture; Z96.41 Presence of insulin pump (external) (internal); I87.2 Venous insufficiency (chronic) (peripheral); E10.65 Type 1 diabetes mellitus with hyperglycemia; W18.30XD Fall on same level, unspecified, subsequent encounter
CPT/HCPCS: 36415; 80053; 82962; 83036; 83735; 84100; 85027; 97110; 97116; 97162; 97166; 97530; 97535; 99251; G0463

== ENCOUNTER → 2019-12-04 | Outpatient (CLI) | payer MEDICARE, OTHER, SELFPAY ==
[2019-10-09 13:05] VITALS: BMI 24.8
[2019-11-25 11:22] VITALS: BMI 24.8
--- NOTE | 2019-12-04 10:57 | BD_ITS ---
STUDY: DUAL ENERGY X-RAY ABSORPTIOMETRY / DXA REASON FOR EXAM: Female, 78 years old. MIXER WET POUR -- TYPE 1 DIABETIC- ON INSULIN PUMP -- HX OF TAKING DIURETICS -- HX OF TAKING ANTI-SEIZURE MEDS -- TAKES CALCIUM -- DOES MODERATE AMOUNT OF EXERCISE -- RECENT LEFT FEMUR FX AND PELVIC FX, HX OF BILATERAL HAND/ WRIST FX''s -- HX OF LEFT FEMUR ORIF -- DIANE OF 2.5 INCHES TECHNIQUE: Bone Mineral Density (BMD) measurements of lumbar spine and right hip were obtained. COMPARISON: None. FINDINGS: Lumbar Spine (L1-L4): g/cm2 (0.707) / T-score (-3.9) / Z-score (-2.0) Findings are suggestive of osteoporosis with a high fracture risk. Right Femur Total: g/cm2 (0.825) / T-score (-1.4) / Z-score (0.6) Right Femoral Neck: g/cm2 (0.824) / T-score (-1.5) / Z-score (0.7) BD/Dexa Bone Density Study IMPRESSION: The patient is considered osteoporotic as outlined below according to World [employer] Organization (WHO) criteria with a high fracture risk. Reference Information: The T-score is the number of standard deviations above or below the standard which is normal for young adults at their peak bone mineral density. The World Health Organization (WHO) interprets the T-scores as follows: Above -1 Normal bone density Between -1 and -2.5 Osteopenia Equal to / or below -2.5 Osteoporosis As a practical clinical guideline, osteopenia may be graded as follows: Mild -1 through -1.5 Moderate -1.6 through -2.0 Severe -2.1 through -2.4 The Z-score is the number of standard deviations above or below age-matched controls. A Z-score of less than -1.5 would be considered abnormal. References: 1. NIH Osteoporosis and Related Bone Diseases http://www.osteo.org 2. International Society for Clinical Densitometry http://www.iscd.org 3. National Osteoporosis Foundation http://www.nof.org Electronically Signed: Campos Nicole, at 15:41 EST , Service support ,
== END | disposition home or self-care (01) ==
LOC: OPBD 10:53
PROVIDERS: Family Provider Family Medicine; PCP Family Medicine; Referring Provider Internal Medicine Endocrinology, Diabetes & Metabolism; Visit Provider Internal Medicine Endocrinology, Diabetes & Metabolism
DX: Z78.0 Asymptomatic menopausal state (principal); S32.599A Other specified fracture of unspecified pubis, initial encounter for closed fracture
CPT/HCPCS: 77080

== ENCOUNTER 2020-04-17 20:56 | Emergency (ER) | payer MEDICARE, OTHER, SELFPAY ==
[2020-04-12 12:21] VITALS: BMI 27.8
[2020-04-17 20:57] VITALS: BP 183/83; PULSE 72; RESP 16; TEMP 36.4; O2SAT 98; BMI 28.5
--- NOTE | 2020-04-17 21:05 | RAD_ITS ---
STUDY: X-RAY - LEFT WRIST REASON FOR EXAM: Female, 79 years old. FALL TONIGHT. LEFT WRIST PAIN. TECHNIQUE: 3 view(s) of the wrist were obtained. COMPARISON: None. FINDINGS: There is demineralization of the radius and ulna. There is an impacted distal radial metaphyseal fracture. There is mild dorsal angulation of the distal radius. There is deformity within the distal ulnar diaphysis which may reflect an old fracture. Normal radiocarpal articulation. Normal distal radioulnar articulation. There is demineralization of the carpal bones. There is an indeterminate cortical defect within the distal scaphoid. Normal carpal articulations. There is degenerative arthrosis of the carpometacarpal articulation of the thumb. Normal second through fifth carpometacarpal articulations. Normal visualized metacarpal bones. There is diffuse soft tissue swelling. RAD/Wrist min 3 Views IMPRESSION: Distal radial fracture. Indeterminate lucency within the scaphoid, cannot assume underlying fracture. Electronically Signed: Kristal Camacho MD at 21:57 EDT Tel , Service support ,
--- NOTE | 2020-04-17 22:32 | ED.VISSUMM ---
- ER Visit Summary Date of Service: 04/17/20 Chief Complaint: Fall History of Present Illness: The patient is a [address] Hai Posadas. She is right-hand dominant. She reports a 6:00 this evening she lost balance getting off a tractor fell and injured her left wrist. She denies any blow to the head or loss of consciousness. She is not on anticoagulants. No neck, back, shoulder, or hip pain. Physical Examination: Vitals: Stable. Afebrile. Neck: No vertebral tenderness. Full ROM without difficulty. Cleared by NEXUS criteria. Back: No vertebral tenderness. General: A&O x 3. NAD. Cardiovascular exam: Regular rate and rhythm, no murmur, rub or gallop. Respiratory exam: Chest nontender. No crepitus. Clear to auscultation bilaterally. No wheezes or stridor. Abdominal exam: Soft, nontender, nondistended, normal bowel sounds. No pain in RUQ or LUQ specifically. No peritoneal signs. Extremity: Moderate tenderness palpation of the distal radius on the left. Decreased range of motion secondary to pain. She is neuro vas intact distal this.. Test Results: X-ray shows impacted distal radius fracture. Emergency Department Course and Treatment: Patient refused pain medications. Her fracture is not amenable to reduction. She was placed in the an Ortho-Glass sugar tong splint. She is resting comfortably. Treatment Plan: Patient will be discharged with [place] and Colace. Instructed to follow-up Dr. Charli Mar in a week for another exam. Return to the emergency department for any worsening symptoms. Disposition: To home in improved and stable condition. Impression: 1. Fall. 2. Left distal radius fracture. 3. Ortho-Glass sugar tong splint, fabricated. This note was generated with [employer] dictation software. It may contain incorrect words, spelling, and punctuation that were not noted in review of the chart prior to signing ED Disposition - Plan for ED Patient: Disposition: Home or Assisted Living Instructions: ED Fx Colles Wrist No Redu Requ Prescriptions: Docusate Sodium [Colace] 100 mg PO DAILY #20 cap Prescription Printed Hydrocodone Bitart/Apap 5-325 [[place] 5MG-325MG] 1 tab PO Q4H PRN PRN 2 Days #10 tab PRN Reason: Pain Prescription Printed Referrals: Charli Mar MD [STAFF PHYSICIAN] - 1 Week
[2020-04-17 23:36] VITALS: BP 167/74; PULSE 74; RESP 18; O2SAT 96
== END 2020-04-17 23:37 | disposition home or self-care (01) ==
LOC: ED 21:54
PROVIDERS: Emergency Provider Emergency Medicine; PCP Family Medicine
DX: S52.502A Unspecified fracture of the lower end of left radius, initial encounter for closed fracture (principal); E10.9 Type 1 diabetes mellitus without complications; I10 Essential (primary) hypertension; E78.00 Pure hypercholesterolemia, unspecified; Z79.899 Other long term (current) drug therapy; W17.89XA Other fall from one level to another, initial encounter; Y93.89 Activity, other specified; Y92.89 Other specified places as the place of occurrence of the external cause; Y99.8 Other external cause status
CPT/HCPCS: 29125; 73110; 99283

== ENCOUNTER → 2020-05-19 | Outpatient (CLI) | payer MEDICARE, OTHER, SELFPAY ==
[2020-05-19 10:38] VITALS: BMI 27.5
[2020-05-19 13:06] LABS: ALB/GLOB Ratio 0.8 RATIO (0.9-2.4); AST(SGOT) 23 U/L (15-37); Alanine Aminotransfer ALT/SGPT 20 U/L (13-56); Albumin, Serum 3.4 g/dL (3.2-5.0); Alkaline Phosphatase 81 U/L (45-117); Anion Gap 3 (5-15); BUN 21 mg/dL (7-18); BUN/Creat Ratio 20.4 RATIO (10-20); Calcium,Total 9.2 mg/dL (8.5-10.1); Chloride 104 mmol/L (98-107); Cholesterol 157 mg/dL (200); Creatinine, Serum 1.03 mg/dL (0.55-1.02); EST Glomerular Filtration Rate 55 mL/min (>60); Est Glom Filt Rate - Afr Amer 66 mL/min (>60); Glucose 114 mg/dL (74-106); High Density Lipoprotein 79 mg/dL; Potassium 4.1 mmol/L (3.5-5.1); Protein, Total 7.4 g/dL (6.4-8.2); Sodium Level 139 mmol/L (136-145); Thyroid Stim Hormone (TSH) 2.26 uIU/mL (0.358-3.74); Triglycerides 40 mg/dL; Very Low Density Lipoprotein 8 mg/dL (5-40)
== END | disposition home or self-care (01) ==
LOC: BIMLAB 11:21
PROVIDERS: PCP Family Medicine; Referring Provider Internal Medicine Endocrinology, Diabetes & Metabolism; Visit Provider Internal Medicine Endocrinology, Diabetes & Metabolism
DX: E78.2 Mixed hyperlipidemia (principal); I47.1 Supraventricular tachycardia; I11.0 Hypertensive heart disease with heart failure; I50.32 Chronic diastolic (congestive) heart failure
CPT/HCPCS: 36415; 80053; 80061; 84443

== ENCOUNTER → 2020-12-02 10:42 | Outpatient (CLI) | payer MEDICARE, OTHER, SELFPAY ==
[2020-12-02 10:03] VITALS: BMI 29.9
[2020-12-02 12:46] LABS: Vitamin D,25 Hydroxy 42.2 ng/mL
[2020-12-02 12:51] LABS: ALB/GLOB Ratio 0.8 RATIO (0.9-2.4); AST(SGOT) 21 U/L (15-37); Alanine Aminotransfer ALT/SGPT 26 U/L (13-56); Albumin, Serum 3.5 g/dL (3.2-5.0); Alkaline Phosphatase 77 U/L (45-117); Anion Gap 6 (5-15); BUN 24 mg/dL (7-18); BUN/Creat Ratio 22.2 RATIO (10-20); Calcium,Total 9.4 mg/dL (8.5-10.1); Chloride 101 mmol/L (98-107); Cholesterol 158 mg/dL (200); Creatinine, Serum 1.08 mg/dL (0.55-1.02); EST Glomerular Filtration Rate 52 mL/min (>60); Est Glom Filt Rate - Afr Amer 63 mL/min (>60); Globulin 4.2 g/dL (2.2-4.2); Glucose 67 mg/dL (74-106); High Density Lipoprotein 87 mg/dL; Potassium 3.9 mmol/L (3.5-5.1); Protein, Total 7.7 g/dL (6.4-8.2); Sodium Level 137 mmol/L (136-145); Thyroid Stim Hormone (TSH) 2.12 uIU/mL (0.358-3.74); Triglycerides 43 mg/dL; Very Low Density Lipoprotein 9 mg/dL (5-40)
== END ==
PROVIDERS: PCP Family Medicine; Referring Provider Internal Medicine Endocrinology, Diabetes & Metabolism; Visit Provider Internal Medicine Endocrinology, Diabetes & Metabolism
DX: E55.9 Vitamin D deficiency, unspecified (principal); I11.0 Hypertensive heart disease with heart failure; I50.32 Chronic diastolic (congestive) heart failure; I47.1 Supraventricular tachycardia
CPT/HCPCS: 36415; 80053; 80061; 82306; 84443

== ENCOUNTER → 2021-01-07 13:21 | Outpatient (CLI) | payer MEDICARE, OTHER, SELFPAY ==
--- NOTE | 2021-01-07 13:23 | ECHOD_ITS ---
Reason For Study: CAD Procedure This was a 2D Doppler, Color Flow transthoracic echocardiogram. The exam was of adequate technical quality. Exam performed in department. Left Ventricle Normal LV size. Left ventricular systolic function is normal. The estimated ejection fraction is 70 %. No regional wall motion abnormalities noted. Right Ventricle Normal RV size. Normal systolic function. Atria The left atrium is mildly enlarged. Normal right atrium. No doppler evidence for ASD. Mitral Valve There is severe mitral annular calcification. Extension of the mitral annular calcification onto the mitral valve leaflets. Mild diffuse mitral valve thickening. The mitral papillary muscle appears thickened and/or calcified. Moderate mitral valve stenosis. Moderate (2+) mitral valve insufficiency. Tricuspid Valve Normal tricuspid valve. Mild tricuspid valve insufficiency. Right ventricular systolic pressure estimated to be 53 mmHg. Aortic Valve Trisinus/trileaflet aortic valve. Mild focal aortic valve calcification. Pulmonic Valve The pulmonic valve is not well visualized. Trivial pulmonic valve insufficiency. Great Vessels Normal sized aortic root. Calcified aortic root. Pericardium/Pleural No pericardial effusion. MMode/2D Measurements & Calculations LVIDd: 3.9 cm IVSd: 0.93 cm LVOT diam: 1.7 cm LVIDs: 2.3 cm LVPWd: 0.87 cm LVOT area: 2.2 cm2 RVDd: 4.3 cm FS: 41.6 % MVA(traced): 1.1 cm2 Ao root diam: 3.3 cm LAV(MOD-bp): 63.4 ml LAV(MOD-bp) Indexed: 38.0 ml/m2 LAV(MOD-sp2): 63.1 ml LAV(MOD-sp4): 48.1 ml LA dimension(2D): 3.0 cm LA A4 area: 17.7 cm2 RA A4 area: 12.0 cm2 Doppler Measurements & Calculations MV E max bill: 176.3 cm/sec Lat Peak E' Bill: 4.0 cm/sec Med Peak E' Bill: 4.2 cm/sec MV A max bill: 119.3 cm/sec E/E' lat: 44.1 E/E' med: 42.0 MV E/A: 1.5 MV V2 max: 184.5 cm/sec Ao V2 max: 143.5 cm/sec LV V1 max: 132.4 cm/sec MV max P.7 mmHg Ao max P.2 mmHg LV V1 max P.0 mmHg MV V2 mean: 102.1 cm/sec Ao V2 mean: 111.5 cm/sec LV V1 mean P.0 mmHg MV mean P.7 mmHg Ao mean P.3 mmHg LV V1 mean: 95.8 cm/sec MV V2 VTI: 64.6 cm Ao V2 VTI: 34.8 cm LV V1 VTI: 33.1 cm MVA(VTI): 1.1 cm2 VIVIANA(I,D): 2.1 cm2 VIVIANA(V,D): 2.0 cm2 SV(LVOT): 72.2 ml TR max bill: 351.8 cm/sec MV P1/2t-pr_phl: 112.0 msec TR max P.5 mmHg Interpretation Summary Left ventricular systolic function is normal. The estimated ejection fraction is 70 %. The left atrium is mildly enlarged. There is severe mitral annular calcification. Extension of the mitral annular calcification onto the mitral valve leaflets. Mild diffuse mitral valve thickening. The mitral papillary muscle appears thickened and/or calcified. Moderate mitral valve stenosis. Moderate (2+) mitral valve insufficiency. Mild tricuspid valve insufficiency. Mild focal aortic valve calcification. Trivial pulmonic valve insufficiency. Calcified aortic root. Right ventricular systolic pressure estimated to be 53 mmHg c/w pulmonary hypertension. Transmitral diastolic flow velocities suggest diastolic dysfunction (pseudonormal pattern). Ordering Physician: Jose Eduardo Hendrix Referring Physician: PARUL WALKER Performed By: Leonela Barcenas, RDCS, RVT
== END ==
PROVIDERS: PCP Family Medicine; Referring Provider Internal Medicine Cardiovascular Disease; Visit Provider Internal Medicine Cardiovascular Disease
DX: I25.10 Atherosclerotic heart disease of native coronary artery without angina pectoris (principal); I47.1 Supraventricular tachycardia; E78.5 Hyperlipidemia, unspecified; I11.0 Hypertensive heart disease with heart failure; I50.32 Chronic diastolic (congestive) heart failure
CPT/HCPCS: 93306

== ENCOUNTER → 2021-06-14 | Outpatient (CLI) | payer MEDICARE, OTHER, SELFPAY ==
[2021-06-14 21:27] LABS: Probe Check PASS; Specimen Processing Control PASS
== END | disposition home or self-care (01) ==
PROVIDERS: PCP Family Medicine; Visit Provider Family Medicine
DX: Z20.822 Contact with and (suspected) exposure to COVID-19 (principal)
CPT/HCPCS: 87635; U0005; U0003

== ENCOUNTER → 2021-06-30 11:50 | Outpatient (CLI) | payer MEDICARE, OTHER, SELFPAY ==
[2021-06-30 12:40] LABS: Basophil# 0.02 X10^3/uL; Basophil% 0.5 % (0-1); Eosinophil# 0.18 X10^3/uL; Eosinophils% 4.3 % (0-5); Hematocrit 36.4 % (37-47); Lymphocyte % 16.7 % (19-41); Mean Corpuscular Hgb 30.4 pg (27.0-32.0); Mean Corpuscular Volume 92.2 fL (81-99); Mean Platelet Vol. 9.3 fl (6.2-12.0); Monocyte# 0.31 X10^3/uL; Monocyte% 7.4 % (0-10); NRBC Flagged by Analyzer 0 % (0-5); Neutrophil # 2.97 X10^3/uL (2.7-7.7); Neutrophil % 70.9 % (47-70); Platelet Count 215 K/mm3 (150-450); RBC Distribution Width CV 12.7 % (11.6-14.6); RBC Distribution Width SD 43.1 fl (35.1-43.9); Red Blood Count 3.95 M/mm3 (4.2-5.4); White Blood Count 4.2 K/mm3 (4.4-11.0)
[2021-06-30 13:18] LABS: Anion Gap 3 (5-15); BUN 20 mg/dL (7-18); BUN/Creat Ratio 20.1 RATIO (10-20); Calcium,Total 9.2 mg/dL (8.5-10.1); Chloride 104 mmol/L (98-107); EST Glomerular Filtration Rate 57 mL/min (>60); Est Glom Filt Rate - Afr Amer 68 mL/min (>60); Glucose 102 mg/dL (74-106); Potassium 4.1 mmol/L (3.5-5.1); Sodium Level 138 mmol/L (136-145)
== END ==
PROVIDERS: PCP Family Medicine; Visit Provider Physician Assistant Medical
DX: E10.21 Type 1 diabetes mellitus with diabetic nephropathy (principal); E78.5 Hyperlipidemia, unspecified; I25.10 Atherosclerotic heart disease of native coronary artery without angina pectoris; I47.1 Supraventricular tachycardia; I13.0 Hypertensive heart and chronic kidney disease with heart failure and stage 1 through stage 4 chronic kidney disease, or unspecified chronic kidney disease; I50.32 Chronic diastolic (congestive) heart failure; N18.31 Chronic kidney disease, stage 3a; R53.83 Other fatigue
CPT/HCPCS: 36415; 80048; 84443; 85025

== ENCOUNTER → 2021-07-20 06:48 | Outpatient (CLI) | payer MEDICARE, OTHER, SELFPAY ==
--- NOTE | 2021-07-20 09:38 | STRESSREP_ITS ---
Stress Test Report Date: 07-20-2021 Procedure: Pharmacologic stress nuclear imaging study Indications: Fatigue; CAD; PSVT Consent: Per the patient Procedure: The patient underwent pharmacologic (Regadenoson 0.4mg ) evaluation with a peak heart rate of 89 beats per minute (64%predicted maximal heart rate) and a peak blood pressure of 158/82 mmHg. The baseline ECG demonstrated sinus rhythm; right bundle branch block pattern. The peak pharmacologic ECG demonstrated no obvious ECG changes. There were no cardiac dysrhythmias pretest, during pharmacologic infusion, or recovery. There was no complaint of chest discomfort during pharmacologic infusion or recovery. The examination was discontinued secondary to completion of protocol. Impression: 1. Pharmacologic (Regadenoson) evaluation 2. Peak pharmacologic ECG with continued right bundle branch block pattern with no obvious ECG change. 3. There were no cardiac dysrhythmias pretest, during pharmacologic infusion, or recovery. 4. Nuclear images pending Myocardial perfusion imaging study: Technique: The patient was injected with 10.3 millicuries of technetium 99m Cardiolite and subsequently rest SPECT Cardiolite nuclear imaging was obtained in the horizontal long, vertical long, and short axis views. The patient underwent pharmacologic (Regadenoson) evaluation with a peak heart rate of 89 beats per minute (64% percent predicted maximal heart rate) and a peak blood pressure of 158/82 mmHg. The patient was injected with 31.2 millicuries of technetium 99m Cardiolite and subsequently stress SPECT Cardiolite nuclear imaging was obtained in the horizontal long, vertical long, and short axis views. A gated Cardiolite study at peak stress was obtained. Interpretation: Rest and stress SPECT Cardiolite nuclear imaging status post realignment, normalization, and attenuation correction demonstrate relative uniform tracer uptake and myocardial perfusion appearing within normal limits. There is end systolic thickening and brightening. The gated Cardiolite study demonstrates myocardial thickening and inward wall motion. The reported LVEF is 96%. Impression: 1. Rest and stress SPECT Cardiolite nuclear imaging demonstrate relative uniform tracer uptake and myocardial perfusion appearing within normal limits. 2. The gated Cardiolite study reports an LVEF of 96%. This note was generated with [employer] software. It may contain incorrect words, spelling, and punctuation that were not noted in checking the note before signing.
== END ==
PROVIDERS: PCP Family Medicine; Referring Provider Physician Assistant Medical; Visit Provider Physician Assistant Medical
DX: I25.10 Atherosclerotic heart disease of native coronary artery without angina pectoris (principal); R53.83 Other fatigue; I47.1 Supraventricular tachycardia; E78.5 Hyperlipidemia, unspecified; I11.0 Hypertensive heart disease with heart failure; I50.32 Chronic diastolic (congestive) heart failure
CPT/HCPCS: 78452; 93017; A9500; A4216; J2785

== ENCOUNTER 2021-09-02 14:44 | Emergency (ER) | payer MEDICARE, OTHER, SELFPAY ==
[2021-09-02 14:45] VITALS: BP 199/79; PULSE 65; RESP 18; TEMP 36.9; O2SAT 100; BMI 28.3
--- NOTE | 2021-09-02 15:07 | EX.ED.DYSGE1 ---
HPI History of Present Illness Chief Complaint: Dizziness Informant: patient and family Narrative Narrative: 80-year-old female presents to the emergency department via private vehicle with a chief complaint of dizziness. She states that she was fine all morning. She sat down for lunch and ate it with no difficulties. When she stood up she suddenly felt dizzy or something like that I guess. She states that she cannot really describe the way she was feeling. She felt that she was thinking clearly. She states that she had difficulty walking because she was afraid she was going to fall. She sat down at work and continued to do her job and she states that now she is feeling better than what she did. She cannot tell me what she currently feels. She denies any pain or nausea. No change in vision arm or legs symptoms. [facility] Medical History Atherosclerotic heart disease of [place] coronary artery without angina pectoris Chronic diastolic heart failure Chronic renal failure, stage 3 (moderate) Essential hypertension History of left heart catheterization (LHC) (~01/13/11) HLD (hyperlipidemia) Insomnia Insulin pump fitting or adjustment Mitral valve disease Osteoporosis Pain Paroxysmal supraventricular tachycardia Pelvic fracture Physical debility Type I diabetes mellitus Varicosities of leg Venous insufficiency of left leg Home Medications aspirin 81 mg PO DAILY 04/30/15 [History Last Taken 09/24/19] calcium carbonate 1,000 mg PO BIDCM 09/24/19 [History Last Taken 09/24/19] amlodipine 5 mg tablet 5 mg PO DAILY #90 tab 12/02/20 [Rx Last Taken Unknown] atorvastatin 10 mg tablet 10 mg PO DAILY #90 tab 12/02/20 [Rx Last Taken Unknown] insulin lispro 100 unit/mL subcutaneous solution 65 unit SC .continuous #60 ml 12/02/20 [Rx Last Taken Unknown] ergocalciferol (vitamin D2) 1,250 mcg (50,000 unit) capsule 50,000 unit PO .qoweek #12 cap 05/23/21 [Rx Last Taken Unknown] latanoprost 0.005 % eye drops ml OPHTHALMIC (EYE) 05/23/21 [History Last Taken Unknown] metoprolol tartrate 50 mg tablet 50 mg PO BID tab 06/30/21 [History Last Taken Unknown] Allergy/AdvReac Type Severity Reaction Status Date / Time No Known Allergies Allergy Verified 09/02/21 14:46 Family History Brother CAD (coronary artery disease) Brother Heart disease Surgical History S/P ORIF (open reduction internal fixation) fracture (~05/02/15) Social History Smoking Status: Never smoker alcohol intake: never substance use type: does not use caffeine: Yes ROS ROS ED ROS Narrative Dizziness Constitutional Constitutional ED: Denies chills, fever(s) or weight loss Eyes Eyes: Denies change in vision or diplopia ENT ENT ED: Denies ear pain, rhinorrhea or sore throat Cardiovascular Cardiovascular: Denies chest pain, orthopnea, palpitations or racing heartbeat Respiratory/Chest Respiratory/Chest: Denies cough, dyspnea or orthopnea Gastrointestinal Gastrointestinal: Denies abdominal pain, diarrhea, nausea or vomiting Genitourinary Genitourinary ED: Denies dysuria, hematuria or urinary frequency Musculoskeletal Musculoskeletal: Denies arthralgias or myalgias Integumentary Denies abscess or rash Neurologic Neurologic: Denies headache(s) or weakness Psychiatric Psychiatric: Denies anxiety, depression, suicidal ideation or suicidal thoughts Endocrine Endocrinology: Denies polydipsia, polyphagia or polyuria Allergic/Immunologic Allergic/Immunologic ED: Denies mouth swelling, tongue swelling or urticaria EXAM Physical Exam Const Vital Signs: 09/02/21 14:45 09/02/21 15:24 09/02/21 15:28 Temperature 98.5 F Temperature Source Temporal Pulse Rate 65 64 Respiratory Rate 18 14 Respiratory Effort Normal Respiratory Pattern Normal Blood Pressure 199/79 H Blood Pressure Mean 119 Pulse Ox 100 99 Oxygen Delivery Method Room Air Room Air 09/02/21 18:01 09/02/21 19:11 Temperature Temperature Source Pulse Rate 72 73 Respiratory Rate 15 18 Respiratory Effort Respiratory Pattern Blood Pressure 179/74 H 168/70 H Blood Pressure Mean 109 102 Pulse Ox 99 99 Oxygen Delivery Method Room Air Positive well nourished and well developed General Appearance ED: well developed HEENT Reports normocephalic, head/scalp atraumatic, TM's clear and moist mucous membranes Negative for trauma Tympanic Membrane ED: Yes TM's clear Eyes PERRL and EOMs intact bilaterally Eyes Narrative: No nystagmus Neck no lymphadenopathy, supple and no JVD Resp normal respiratory effort and clear to auscultation bilaterally Cardio regular rate, regular rhythm and no murmurs GI normal to inspection, nondistended, normoactive bowel sounds and non-tender Palpation: soft Back/Spine no CVA tenderness and normal ROM Extremity normal to inspection General Extremety ED: Negative for edema General Extremity: Negative for edema Neuro oriented x3 and CN's II-XII intact bilaterally Neuro Narrative: Normal [id number] Sensorium / Orientation: alert Motor Exam: strength 5/5 throughout Psych mental status grossly normal Mood & Affect: Negative for depressed or tearful Skin no rashes or lesions noted and no wounds MDM MDM MDM Narrative Medical decision making narrative: My interpretation of the chest x-ray is no acute process. Basic blood work showed leukopenia at 3.7 hemoglobin 12.3 and platelet count of 190. BUN of 23 with creatinine 1.[address] the brain negative for acute. Patient's ED stay was prolonged while we waited for a urine specimen. This was obtained and was negative. Patient states that she felt similar to the way she felt at lunchtime when she got up to get on the CT table but not when she got up to get on the bedside commode. Unfortunately her symptoms are very vague she does not describe vertigo she does not describe lightheadedness she simply says its dizziness or something like that. I do not see anything glaringly acute. She appears to be able to ambulate without ataxia. I appreciate no neurologic deficits. Lab Data Attestation: I reviewed the patient's lab results. Labs: Laboratory Results - last 24 hr 09/02/21 09/02/21 09/02/21 15:21 15:21 18:12 WBC 3.7 L RBC 4.00 L Hgb 12.3 Hct 36.2 L MCV 90.5 MCH 30.8 MCHC 34.0 RDW Std Deviation 41.2 RDW Coeff of Royce 12.6 Plt Count 190 MPV 9.5 Immature Gran % (Auto) 0.000 Neut % (Auto) 69.8 Lymph % (Auto) 15.9 L Traill % (Auto) 10.0 Eos % (Auto) 3.8 Baso % (Auto) 0.5 Absolute Neuts (auto) 2.6 Absolute Lymphs (auto) 0.59 L Nucleated RBC % 0 Differential Comment Diff Path Review May foll Platelet Estimate ADEQUATE RBC Morphology NORM C+C Sodium 135 L Potassium 3.9 Chloride 101 Carbon Dioxide 29.0 Anion Gap 5 BUN 23 H Creatinine 1.05 H Estim Creat Clear Calc 31.17 Est GFR (MDRD) Af Amer 64 Est GFR (MDRD) Non-Af 53 L BUN/Creatinine Ratio 21.9 H Glucose 88 Calcium 9.4 Total Bilirubin 0.40 AST 21 ALT 19 Alkaline Phosphatase 68 Troponin I High Sens 8 Total Protein 7.5 Albumin 3.2 Globulin 4.3 H Albumin/Globulin Ratio 0.7 L Urine Color Yellow Urine Clarity Sl. Cloudy Urine pH 8.0 Ur Specific [place] 1.010 Urine Protein Negative Urine Glucose (UA) Normal Urine Ketones Negative Urine Occult Blood Negative Urine Nitrite Negative Urine Bilirubin Negative Urine Urobilinogen Normal Ur Leukocyte Esterase Negative Urine RBC 0 SEEN Urine WBC 0 SEEN Ur Squamous Epith Cells 0-5 SEEN Urine Bacteria 0 SEEN Urine Mucus 0 SEEN Radiography Diagnostic Testing: Clinical Impression(s) from Imaging Studies Brain CT 09/02/21 15:10 IMPRESSION: Chronic involutional changes of the brain. Electronically Signed: Randolph Moody MD at 17:01 EDT Tel , Service support , Chest X-Ray 09/02/21 15:50 IMPRESSION: Normal x-ray examination of the chest. Electronically Signed: Randolph Moody MD at 17:01 EDT Tel , Service support , EKG Initial EKG: Comments: Sinus rhythm with a first-degree AV block with a ventricular rate of 62 bpm. Noted right bundle branch block Discharge Plan Triage Chief Complaint: Dizziness ED Provider: Emile Izquierdo Dx/Rx/DC Orders Clinical Impression: Dizziness Instructions: ED Dizziness, Uncertain Cause Prescriptions: No Action amlodipine 5 mg tablet 5 mg PO DAILY Qty: 90 RF: 3 atorvastatin 10 mg tablet 10 mg PO DAILY Qty: 90 RF: 3 insulin lispro [Humalog U-100 Insulin] 100 unit/mL solution 65 unit SC .continuous Qty: 60 RF: 3 latanoprost 0.005 % drops ophthalmic (eye) RF: 0 ergocalciferol (vitamin D2) 1,250 mcg (50,000 unit) capsule 50,000 unit PO .qoweek Qty: 12 RF: 1 aspirin 81 MG tablet,chewable 81 mg PO DAILY RF: 0 metoprolol tartrate 50 mg tablet 50 mg PO BID RF: 0 calcium carbonate 500 MG tablet 1,000 mg PO BIDCM RF: 0 Primary Care Provider: Hai Posadas Referrals: Hai Posadas MD [Primary Care Provider] - 3-5 Days if not improving Disposition Disposition: Home, Self Care
--- NOTE | 2021-09-02 15:10 | CT_ITS ---
STUDY: CT BRAIN WITHOUT CONTRAST REASON FOR EXAM: Female, 80 years old. dizziness RADIATION DOSAGE (If Supplied By Facility): CTDIvol = ( 44.99 ) mGy, DLP = ( 796.11 ) mGycm TECHNIQUE: Transaxial CT imaging of the brain was performed without administration of intravenous contrast material. Individualized dose optimization techniques were used for this CT. COMPARISON: 12/17/2015 FINDINGS: Normal soft tissue structures. Normal calvarium. There is mild cerebral atrophy with widening of the extra-axial spaces and ventricular dilatation. There are areas of decreased attenuation within the white matter tracts of the supratentorial brain, consistent with microvascular disease changes. Normal basal ganglia and thalami. Normal brainstem. Normal cerebellum. There is no intracranial hemorrhage. There are no findings of an acute ischemic infarction. Normal visualized paranasal sinuses. CT/Brain/Head without Contrast IMPRESSION: Chronic involutional changes of the brain. Electronically Signed: Randolph Moody MD at 17:01 EDT Tel , Service support ,
--- NOTE | 2021-09-02 15:10 | EKG12_ITS ---
Test Reason : DIZZY Blood Pressure : / mmHG Vent. Rate : 062 BPM Atrial Rate : 062 BPM P-R Int : 244 ms QRS Dur : 124 ms QT Int : 446 ms P-R-T Axes : 074 071 046 degrees QTc Int : 452 ms Sinus rhythm with 1st degree A-V block Right bundle branch block Abnormal ECG Confirmed by CHANTELL WEBBER, KAM ([id number]), editorial director KVNG MENDEZ ([id number]) on 09/05/2021 11:13:01 AM Referred By: Deniz Confirmed By:KAM ABDUL MD
[2021-09-02 15:24] VITALS: PULSE 64; RESP 14; O2SAT 99
[2021-09-02 15:29] LABS: Absolute Lymphocyte Count 0.59 X10^3/uL (0.83-4.51); Absolute Neutrophil Count 2.6 X10^3/uL (2.0-7.7); Basophil# 0.02 X10^3/uL; Basophil% 0.5 % (0-1); Eosinophil# 0.14 X10^3/uL; Eosinophils% 3.8 % (0-5); Hematocrit 36.2 % (37-47); Hemoglobin 12.3 g/dL (12.0-15.0); Lymphocyte # 0.59 X10^3/ul (0.83-4.51); Lymphocyte % 15.9 % (19-41); Mean Corpuscular Hgb 30.8 pg (27.0-32.0); Mean Corpuscular Volume 90.5 fL (81-99); Mean Platelet Vol. 9.5 fl (6.2-12.0); Monocyte# 0.37 X10^3/uL; NRBC Flagged by Analyzer 0 % (0-5); Neutrophil # 2.58 X10^3/uL (2.7-7.7); Neutrophil % 69.8 % (47-70); POSITIVE DIFFERENTIAL YES; Platelet Count 190 K/mm3 (150-450); RBC Distribution Width CV 12.6 % (11.6-14.6); RBC Distribution Width SD 41.2 fl (35.1-43.9); White Blood Count 3.7 K/mm3 (4.4-11.0)
[2021-09-02 15:47] LABS: Differential Indicated SCAN CRITERIA MET
--- NOTE | 2021-09-02 15:50 | RAD_ITS ---
STUDY: X-RAY CHEST REASON FOR EXAM: Female, 80 years old. CAD TECHNIQUE: Single AP portable view of the chest. COMPARISON: 06/21/2017 FINDINGS: The lungs are clear and expanded. There is no demonstrated pleural abnormality. Normal size heart. Normal mediastinum and leatha. Normal visualized pulmonary arteries. Normal visualized aortic arch and descending thoracic aorta. Normal visualized thoracic spine. Normal visualized ribs, clavicles, and shoulders. There is no demonstrated abnormality of the visualized soft tissue structures of the upper abdomen. RAD/Chest 1 View (Portable) IMPRESSION: Normal x-ray examination of the chest. Electronically Signed: Randolph Moody MD at 17:01 EDT Tel , Service support ,
[2021-09-02 15:53] LABS: ALB/GLOB Ratio 0.7 RATIO (0.9-2.4); AST(SGOT) 21 U/L (15-37); Alanine Aminotransfer ALT/SGPT 19 U/L (13-56); Albumin, Serum 3.2 g/dL (3.2-5.0); Alkaline Phosphatase 68 U/L (45-117); Anion Gap 5 (5-15); BUN 23 mg/dL (7-18); BUN/Creat Ratio 21.9 RATIO (10-20); Calcium,Total 9.4 mg/dL (8.5-10.1); Chloride 101 mmol/L (98-107); Creatinine, Serum 1.05 mg/dL (0.55-1.02); EST Glomerular Filtration Rate 53 mL/min (>60); Est Glom Filt Rate - Afr Amer 64 mL/min (>60); Estimated Creatinine Clearance 31.17 ml/min; Globulin 4.3 g/dL (2.2-4.2); Glucose 88 mg/dL (74-106); Potassium 3.9 mmol/L (3.5-5.1); Protein, Total 7.5 g/dL (6.4-8.2); Sodium Level 135 mmol/L (136-145); Troponin-I HS 8 pg/mL (3.0-54.0)
[2021-09-02 16:16] LABS: Platelet Estimate ADEQUATE (ADEQ); Red Cell Morphology NORM C+C NORMAL (NORM C&C)
[2021-09-02 18:01] VITALS: BP 179/74; PULSE 72; RESP 15; O2SAT 99
[2021-09-02 18:23] LABS: Bacteria 0 SEEN /hpf (None Seen); Mucous, Urine 0 SEEN /hpf (<or=2+); Red Blood Cells-Urine 0 SEEN /hpf (0-5); White Blood Cells 0 SEEN /hpf (0-5)
[2021-09-02 18:30] LABS: Color, Urine Yellow (Yellow); Glucose, Dipstick Normal (Normal); Ketone-Dipstick Negative (Negative); Leukocyte Esterase-Dipstick Negative /ul (Negative); Nitrite-Dipstick Negative (Negative); Occult Blood-Urine Negative /ul (Negative); Protein-Dipstick Negative (Negative); Urine Bilirubin Dipstick Negative (Negative); Urine Clarity Sl. Cloudy (Clear); Urine Urobilinogen Normal (Normal)
[2021-09-02 19:00] LABS: Squamous Epithelial Cells - UA 0-5 SEEN /hpf (5-10)
[2021-09-02 19:11] VITALS: BP 168/70; PULSE 73; RESP 18; O2SAT 99
[2021-09-02 19:32] VITALS: BP 164/75; PULSE 69; RESP 16; O2SAT 98
[2021-09-06 13:13] LABS: Pathologist Review Reviewed
== END 2021-09-02 19:38 | disposition home or self-care (01) ==
PROVIDERS: Emergency Provider Emergency Medicine; PCP Family Medicine
DX: R42 Dizziness and giddiness (principal); I25.10 Atherosclerotic heart disease of native coronary artery without angina pectoris; I13.0 Hypertensive heart and chronic kidney disease with heart failure and stage 1 through stage 4 chronic kidney disease, or unspecified chronic kidney disease; E10.22 Type 1 diabetes mellitus with diabetic chronic kidney disease; N18.30 Chronic kidney disease, stage 3 unspecified; I50.32 Chronic diastolic (congestive) heart failure; Z79.4 Long term (current) use of insulin; Z79.899 Other long term (current) drug therapy
CPT/HCPCS: 70450; 71045; 80053; 81001; 84484; 85025; 93005; 99284

== ENCOUNTER 2022-01-05 17:00 | Outpatient (RCR) | payer MEDICARE, OTHER, SELFPAY ==
--- NOTE | 2021-12-09 15:28 | HP.PTEVAL ---
Patient's Visit Information TABATHA CONTEH is a 80 year old F referred to Physical Therapy by Dr. Hai Posadas MD with a diagnosis of DEBILITY S/P COVID,GENERALIZED WEAKNESS. Date of Evaluation: 12/09/21 Physical Therapist: Brady Thompson, PT, Cert MDT, OCS - Visit Plan Frequency: 2x /Week Duration: 4 Weeks Plan: PT INTERVETIONS PROGRESSIVE GAIT TRAINING ,BALANCE PROGRAM ,STRENGTHENING BEL,ENDURANCE PROGRAM AND FUNCTIONAL STRENGTHNEING - Subjective This 80 y/o female presents to physical therapy debility post COVID and generalized weakness. Patient developed COVID Oct 20 after spouse eventually ,Oct 31 seen [facility] + . Patient was under care DR had assist with family . Initially , used FWW . Currently lives with family friend caregiver . Patient is getting better ,uses cane . Patient is able to dress currently but has some assist with bathing. Patient is unable to cook and cleaning. Patient has no current falls. Patient has no SOB has decrease endurance with activity. Patient has not been doing stairs. Patient family plans to have house build for patient and family. Denies paranesthesia/ tingling. Patient sleeping better. Patient appetite improving. Patient condition affects QOL and function with endurance. VOCATION: retired - Objective POSTURE: mild forward posture. GAIT: 2 point gait unsteady gait slow mariaa mild forward posture. NEURO: denies paresthesia/tingling. BALANCE: fair with cane. MMT: quads/hams 4-/5,hip flexion 4-/5 , abduction 3+/5, ankle DF left 3/5,right 4-/5 ,BUE grossly 4-/5. STAIRS: NT - Balance/Special Test Scores CATSIB Score (Max score 120 seconds): 65 Lower Extremity Functional Score: 24 - Goals Goal 1:: I with HEP for strengthening Goal Time Frame: 4-6 Weeks Goal 2:: Patient to improve CATSIB by 5 points to improve gait and risk of falls Goal Time Frame: 4-6 Weeks Goal 3:: Patient to demonstrate 50% improvement with function ADLS' Goal Time Frame: 4-6 Weeks Goal 4:: Patient to improve strength BLE to improve 4/5 to improve gait Goal Time Frame: 4-6 Weeks Goal 5:: Patient to improve LFES score by 5 points to improve gait Goal Time Frame: 4-6 Weeks - Rehabilitation Potential Physical Therapy Diagnosis: This patient recovering from covid with generalized weakness ,deconditioned which impairs gait and balance thus will benefit from skilled PT Rehabilitation Potential: Good - Anticipated Interventions Patient/Client Instruction: Educate patient on: Condition, Plan of Care For the Purpose of:: To decrease pain, To improve muscle performance and motor function, To improve ability to perform ADL's, To increase tolerance to activity/condition/position, To improve performance and independence with ADL's, To improve ability of physical actions for home/community/work/leisure, To increase flexibility/ROM, To improve endurance, To improve balance, To improve safety with gait, To assume or resume ADL's, To improve tolerance to ADL's Therapeutic Exercise to Include: Strength training, Endurance training, Balance training, Gait and locomotor training, Active ROM Comment: BLE For the Purpose of:: To increase ROM, To improve muscle performance and motor function, To improve ability to perform ADL's, To increase tolerance to activity/condition/position, To improve performance and independence with ADL's, To improve ability of physical actions for home/community/work/leisure, To improve gait and locomotor functions, To improve endurance, To improve balance, To improve safety with gait, To assume or resume ADL's, To improve tolerance to ADL's Thank you for the opportunity to evaluate your patient. For Medicare and Medicare HMO plans, please review the plan of care and approve it. It will need to be FAXED BACK to us at [phone] for Medicare purposes. For Medicare only, by signing this I certify the plan of care. Please let me know if there are questions or concerns regarding this plan of care. Physician Signature: Date:
--- NOTE | 2022-06-02 11:09 | HP.PTDCSUM ---
It has been my pleasure to treat TABATHA CONTEH referred by Dr. Hai Posadas MD, with the diagnosis of DEBILITY S/P COVID,GENERALIZED WEAKNESS for a total of 9 visit(s). Discharge Date: 01/05/22 Please see the following information for a summary of their discharge status. Subjective: Doing good % Improvement: 90 Objective/Function: POSTURE: MILD FORWARD POSTURE. GAIT: RECIPROCAL GAIT NO DEVICE. BALANCE: GOOD -. MMT: QUADS/HAMS 4/5,HIP FLEXION 4-/5 Goal 1:: I with HEP for strengthening Goal 2:: Patient to improve CATSIB by 5 points to improve gait and risk of falls Goal 3:: Patient to demonstrate 50% improvement with function ADLS' Goal 4:: Patient to improve strength BLE to improve 4/5 to improve gait Goal 5:: Patient to improve LFES score by 5 points to improve gait Plan: D/C Discharge Comments: HEP If there are questions or concerns regarding this patient's physical therapy, please feel free to call me at [phone]. Thank you for the referral of this patient. Sincerely, Brady Thompson, PT, Cert MDT, OCS Balance/Gait/Functional tests - Balance/Special Test Scores Functional Gait Assessment Score: 23 % Disability: 23.3400 CATSIB Score (Max score 120 seconds): 120 Lower Extremity Functional Score: 55
== END 2022-01-05 19:00 | disposition home or self-care (01) ==
LOC: PT 17:00
PROVIDERS: PCP Family Medicine; Referring Provider Family Medicine; Visit Provider Family Medicine
DX: R53.81 Other malaise (principal); U09.9 Post COVID-19 condition, unspecified; R53.1 Weakness; I25.10 Atherosclerotic heart disease of native coronary artery without angina pectoris
CPT/HCPCS: 97110; 97162

== ENCOUNTER → 2022-03-17 | Outpatient (CLI) | payer MEDICARE, OTHER, SELFPAY ==
[2022-03-17 15:50] LABS: Vitamin D,25 Hydroxy 81.2 ng/mL
== END | disposition home or self-care (01) ==
LOC: BIMLAB 14:19
PROVIDERS: Nurse Practitioner Family; PCP Family Medicine; Referring Provider Internal Medicine Endocrinology, Diabetes & Metabolism; Visit Provider Internal Medicine Endocrinology, Diabetes & Metabolism
DX: E55.9 Vitamin D deficiency, unspecified (principal); M81.0 Age-related osteoporosis without current pathological fracture
CPT/HCPCS: 36415; 82306

== ENCOUNTER 2022-04-27 14:36 | Emergency (ER) | payer MEDICARE, OTHER, SELFPAY ==
[2022-04-27 14:37] VITALS: BP 180/84; PULSE 73; RESP 18; TEMP 36.4; O2SAT 100; BMI 26.2
--- NOTE | 2022-04-27 15:06 | CT_ITS ---
EXAM: CT ABDOMEN AND PELVIS WITHOUT INTRAVENOUS CONTRAST CLINICAL INDICATION: Kidney Stone TECHNIQUE: Helically acquired images were obtained of the abdomen and pelvis without intravenous contrast. This CT exam was performed using one or more of the following dose reduction techniques: automated exposure control, adjustment of the mA and/or kV according to patient size, and/or use of iterative reconstruction technique. This report was created using [employer] report generation technology. COMPARISON: None. FINDINGS: LOWER THORAX: Emphysematous changes at the lung bases as well as bibasilar linear atelectasis. Mild thickening of the pulmonary interstitium may represent inflammatory change or edema. Small hiatal hernia. ABDOMEN: LIVER: Unremarkable. Homogeneous. GALLBLADDER AND BILE DUCTS: Multiple calcified stones are present within the gallbladder. No gallbladder distention or wall edema. No intra- or extrahepatic biliary ductal dilation. PANCREAS: Unremarkable. No focal cystic mass. SPLEEN: Unremarkable. Normal size without focal cystic or solid mass. ADRENALS: Unremarkable. No nodules. KIDNEYS AND URETERS: Unremarkable. Normal renal size and position. No hydronephrosis. STOMACH AND BOWEL: Prominent gas and fecal distention of the large bowel. 2. Constipation. PELVIS: APPENDIX: No evidence of acute appendicitis. BLADDER: Unremarkable. REPRODUCTIVE: Unremarkable as visualized. No mass. ABDOMEN and PELVIS: INTRAPERITONEAL SPACE: Unremarkable. No ascites or other fluid collection. No free air. BONES/JOINTS: Old fracture of the left inferior pubic ramus. Surgical fixation of the left femoral neck. No suspicious lytic or blastic abnormality. SOFT TISSUES: Unremarkable. No discrete abdominal or pelvic wall hernia. VASCULATURE: Unremarkable. Abdominal aorta is non-dilated. LYMPH NODES: Unremarkable. No enlarged lymph nodes. CT/Abdomen/Pelvis without Cont IMPRESSION: 1. Bibasilar atelectasis and pulmonary emphysema. 2. Interstitial lung densities which may represent edema or inflammatory change. 3. Cholelithiasis. 4. Constipation. 5. No evidence of urinary tract stone disease. Electronically Signed: Miller Glasgow MD at 17:05 EDT ,
--- NOTE | 2022-04-27 15:07 | ED.VIS.FEGU ---
HPI HPI - Female History of Present Illness Chief Complaint: Abd Pain Narrative Narrative: 81-year-old female presenting with left flank pain which started about 10:30 AM. She describes it as achy. She had nausea and trouble finding a comfortable position. She is currently pain-free. She states has had blood in her urine today. No dysuria or frequency. She states she had a last bowel movement yesterday. No diarrhea. No fever or chills. PFSH PFSH Medical History Atherosclerotic heart disease of [place] coronary artery without angina pectoris Chronic diastolic heart failure Chronic renal failure, stage 3 (moderate) Essential hypertension History of left heart catheterization (LHC) (~01/13/11) HLD (hyperlipidemia) Insulin pump fitting or adjustment Mitral valve disease Osteoporosis Pain Paroxysmal supraventricular tachycardia Pelvic fracture Physical debility Type I diabetes mellitus Varicosities of leg Venous insufficiency of left leg Home Medications aspirin 81 mg chewable tablet 81 mg PO DAILY 04/30/15 [History Last Taken 09/24/19] calcium carbonate 500 mg calcium (1,250 mg) tablet 1,000 mg PO BIDCM supplement 09/24/19 [History Last Taken 09/24/19] ergocalciferol (vitamin D2) 1,250 mcg (50,000 unit) capsule 50,000 unit PO .qoweek #12 caps 05/23/21 [Rx Last Taken Unknown] latanoprost 0.005 % eye drops 1 drp ophthalmic (eye) DAILY 05/23/21 [History Last Taken Unknown] metoprolol tartrate 50 mg tablet 50 mg PO BID 06/30/21 [History Last Taken Unknown] insulin syringe-needle U-100 0.3 mL 31 gauge x 5/16 (BD Insulin Syringe Ultra-Fine) #100 ea 11/11/21 [Rx Last Taken Unknown] pen needle, diabetic 32 gauge x 5/32 (BD Ultra-Fine Donya Pen Needle) #100 ea 11/11/21 [Rx Last Taken Unknown] atorvastatin 10 mg tablet 10 mg PO DAILY #90 tabs 12/01/21 [Rx Last Taken Unknown] insulin lispro 100 unit/mL subcutaneous solution (Humalog U-100 Insulin) 65 unit (0.65 mL) subcut .continuous #60 mL 12/13/21 [Rx Last Taken Unknown] flash glucose sensor (FreeStyle Laura 2 Sensor) #2 ea 12/22/21 [Rx Last Taken Unknown] amlodipine 5 mg tablet 5 mg PO DAILY #90 tabs 01/23/22 [Rx Last Taken Unknown] cefpodoxime 200 mg tablet 200 mg PO BID #28 tabs 04/27/22 [Rx Last Taken Unknown] metoprolol tartrate 25 mg tablet 1 tab PO BID 04/27/22 [History Last Taken Unknown] ondansetron 4 mg disintegrating tablet 4 mg PO Q8H PRN nausea and vomiting #14 tabs 04/27/22 [Rx Last Taken Unknown] Allergy/AdvReac Type Severity Reaction Status Date / Time Sulfa (Sulfonamide AdvReac Nausea/Vom/ Verified 04/27/22 14:36 Antibiotics) Diarrhea Family History Brother CAD (coronary artery disease) Brother Heart disease Surgical History S/P ORIF (open reduction internal fixation) fracture (~05/02/15) Social History Smoking Status: Never smoker alcohol intake: never substance use type: does not use caffeine: Yes ROS ROS ED Constitutional Constitutional ED: Denies chills or fever(s) Eyes Eyes: Denies change in vision ENT ENT ED: Denies rhinorrhea or sore throat Cardiovascular Cardiovascular: Denies chest pain or palpitations Respiratory/Chest Respiratory/Chest: Denies cough or dyspnea Gastrointestinal Gastrointestinal: Reports abdominal pain and nausea; Denies diarrhea Genitourinary Genitourinary ED: Reports hematuria; Denies dysuria or urinary frequency Musculoskeletal Musculoskeletal: Reports other Details: Left flank pain ; Denies arthralgias Integumentary Denies Abrasions or rash Neurologic Neurologic: Denies headache(s) or paresthesias Psychiatric Psychiatric: Denies anxiety or depression EXAM Physical Exam Const Vital Signs: 04/27/22 14:37 04/27/22 16:36 04/27/22 18:00 Temperature 97.5 F L Temperature Source Temporal Pulse Rate 73 79 Respiratory Rate 18 18 18 Blood Pressure 180/84 H 166/89 H Blood Pressure Mean 116 114 Pulse Ox 100 94 Oxygen Delivery Method Room Air Room Air Positive well nourished General Appearance ED: NAD; Negative for pallor HEENT Reports moist mucous membranes Eyes PERRL and EOMs intact bilaterally General Eye ED: Negative for pale conjunctiva or scleral icterus Neck no lymphadenopathy Resp normal respiratory effort Cardio regular rate and regular rhythm GI GI Narrative: Very mild tenderness to palpation in the left lower quadrant. No peritoneal signs. Back/Spine no CVA tenderness Neuro oriented x3 and CN's II-XII intact bilaterally Sensorium / Orientation: alert, oriented to person, oriented to place and oriented to time Skin General Skin Exam: Negative for jaundice or pallor MDM MDM MDM Narrative Medical decision making narrative: Patient states she does not want any thing for pain or nausea currently. She feels well. I obtained blood work and her CBC showed no leukocytosis with white blood cell count of 8.0. Hemoglobin stable at 11.8. Platelets normal at 205. BUN/creatinine ratio slightly elevated and she was given a liter of IV fluids. Creatinine is 1.34. Electrolytes normal. Urinalysis positive for infection with positive nitrites, 4+ bacteria and greater than 100 white blood cells. Patient given a dose of Rocephin. I obtained a CT of the abdomen pelvis without contrast to rule out kidney stone and there was none present. The radiologist did read the lungs as possible inflammation versus edema but the patient is not having any respiratory complaints. Patient will be treated as pyelonephritis. She is given cefpodoxime 200 mg p.o. twice daily for 2 weeks. Urine culture sent. She will be given Zofran for nausea. Return precautions discussed otherwise she will follow-up with her PCP. She was counseled to drink plenty of fluids. Impression: 1. Pyelonephritis 2. Dehydration Lab Data Attestation: I reviewed the patient's lab results. Labs: Laboratory Results - last 24 hr 04/27/22 04/27/22 04/27/22 15:15 15:15 15:15 WBC 8.0 RBC 3.88 L Hgb 11.8 L Hct 35.9 L MCV 92.5 MCH 30.4 MCHC 32.9 RDW Std Deviation 44.2 H RDW Coeff of Royce 13.0 Plt Count 205 MPV 9.6 Immature Gran % (Auto) 0.300 Neut % (Auto) 89.1 H Lymph % (Auto) 5.6 L Citrus % (Auto) 3.8 Eos % (Auto) 1.1 Baso % (Auto) 0.1 Absolute Neuts (auto) 7.1 Absolute Lymphs (auto) 0.45 L Nucleated RBC % 0 Differential Comment SCANNED Sodium 137 Potassium 3.9 Chloride 102 Carbon Dioxide 32.0 Anion Gap 3 L BUN 30 H Creatinine 1.34 H Estim Creat Clear Calc 24.00 Est GFR (MDRD) Af Amer 49 L Est GFR (MDRD) Non-Af 40 L BUN/Creatinine Ratio 22.4 H Glucose 112 H Calcium 9.7 Urine Color Red Urine Clarity Cloudy Urine pH 8.0 Ur Specific [place] 1.010 Urine Protein 100 H Urine Glucose (UA) Normal Urine Ketones Negative Urine Occult Blood 250 H Urine Nitrite Positive H Urine Bilirubin Negative Urine Urobilinogen Normal Ur Leukocyte Esterase 500 H Urine RBC > 100 SEEN Urine WBC >100 SEEN Ur Squamous Epith Cells 5-10 SEEN Urine Bacteria 4+ Urine Mucus 0 SEEN Radiography Diagnostic Testing: Clinical Impression(s) from Imaging Studies Abdomen/Pelvis CT 04/27/22 15:06 IMPRESSION: 1. Bibasilar atelectasis and pulmonary emphysema. 2. Interstitial lung densities which may represent edema or inflammatory change. 3. Cholelithiasis. 4. Constipation. 5. No evidence of urinary tract stone disease. Electronically Signed: Miller Glasgow MD at 17:05 EDT , Discharge Plan Triage Chief Complaint: Abd Pain ED Provider: Gustavo Palacios Dx/Rx/DC Orders Instructions: ED Pyelonephritis, Female (Adult) Prescriptions: New ondansetron 4 mg tablet,disintegrating 4 mg PO Q8H PRN (Reason: nausea and vomiting) Qty: 14 0RF cefpodoxime 200 mg tablet 200 mg PO BID Qty: 28 0RF Rx Instructions: must administer with a meal/food No Action latanoprost 0.005 % drops 1 drp ophthalmic (eye) DAILY Label Comments: place 1 drop into both eyes at bedtime ergocalciferol (vitamin D2) 1,250 mcg (50,000 unit) capsule 50,000 unit PO .qoweek Qty: 12 1RF Rx Instructions: take one tablet every other week (DME) insulin syringe-needle U-100 [BD Insulin Syringe Ultra-Fine] 0.3 mL 31 gauge x 5/16 syringe See Rx Instructions .ROUTE .MEDSUPPLY Qty: 100 6RF Rx Instructions: tid (DME) pen needle, diabetic [BD Ultra-Fine Donya Pen Needle] 32 gauge x 5/ needle See Rx Instructions .ROUTE .MEDSUPPLY Qty: 100 6RF Rx Instructions: 2 times daily aspirin 81 MG tablet,chewable 81 mg PO DAILY Label Comments: blood thinner metoprolol tartrate 50 mg tablet 50 mg PO BID Label Comments: reduce blood pressure calcium carbonate 500 MG tablet 1,000 mg PO BIDCM metoprolol tartrate 25 mg tablet 1 tab PO BID Label Comments: take 1 tablet by mouth twice a day atorvastatin 10 mg tablet 10 mg PO DAILY Qty: 90 3RF insulin lispro [Humalog U-100 Insulin] 100 unit/mL solution 65 unit SC .continuous Qty: 60 3RF (DME) FreeStyle Laura 2 Sensor Kit See Rx Instructions .ROUTE .MEDSUPPLY Qty: 2 6RF Rx Instructions: As directed amlodipine 5 mg tablet 5 mg PO DAILY Qty: 90 3RF Primary Care Provider: Hai Posadas Referrals: Hai Posadas MD [Primary Care Provider] - Disposition Disposition: Home, Self Care
[2022-04-27 15:24] LABS: Mucous, Urine 0 SEEN /hpf (<or=2+)
[2022-04-27 15:26] LABS: Absolute Lymphocyte Count 0.45 X10^3/uL (0.83-4.51); Absolute Neutrophil Count 7.1 X10^3/uL (2.0-7.7); Basophil# 0.01 X10^3/uL; Basophil% 0.1 % (0-1); Eosinophil# 0.09 X10^3/uL; Eosinophils% 1.1 % (0-5); Hematocrit 35.9 % (37-47); Hemoglobin 11.8 g/dL (12.0-15.0); Lymphocyte # 0.45 X10^3/ul (0.83-4.51); Lymphocyte % 5.6 % (19-41); Mean Corp Hgb Conc 32.9 g/dL (32-36); Mean Corpuscular Hgb 30.4 pg (27.0-32.0); Mean Corpuscular Volume 92.5 fL (81-99); Mean Platelet Vol. 9.6 fl (6.2-12.0); Monocyte% 3.8 % (0-10); NRBC Flagged by Analyzer 0 % (0-5); Neutrophil # 7.11 X10^3/uL (2.7-7.7); Neutrophil % 89.1 % (47-70); POSITIVE DIFFERENTIAL YES; Platelet Count 205 K/mm3 (150-450); RBC Distribution Width SD 44.2 fl (35.1-43.9); Red Blood Count 3.88 M/mm3 (4.2-5.4)
[2022-04-27 15:41] LABS: Color, Urine Red (Yellow); Glucose, Dipstick Normal (Normal); Ketone-Dipstick Negative (Negative); Leukocyte Esterase-Dipstick 500 /ul (Negative); Nitrite-Dipstick Positive (Negative); Occult Blood-Urine 250 /ul (Negative); Protein-Dipstick 100 mg/dl (Negative); Urine Bilirubin Dipstick Negative (Negative); Urine Clarity Cloudy (Clear); Urine Urobilinogen Normal (Normal)
[2022-04-27 15:46] LABS: Differential Indicated SCAN CRITERIA MET
[2022-04-27 15:48] LABS: Anion Gap 3 (5-15); BUN 30 mg/dL (7-18); BUN/Creat Ratio 22.4 RATIO (10-20); Bacteria 4+ /hpf (None Seen); Calcium,Total 9.7 mg/dL (8.5-10.1); Chloride 102 mmol/L (98-107); Creatinine, Serum 1.34 mg/dL (0.55-1.02); EST Glomerular Filtration Rate 40 mL/min (>60); Est Glom Filt Rate - Afr Amer 49 mL/min (>60); Glucose 112 mg/dL (74-106); Potassium 3.9 mmol/L (3.5-5.1); Red Blood Cells-Urine > 100 SEEN /hpf (0-5); Sodium Level 137 mmol/L (136-145); Squamous Epithelial Cells - UA 5-10 SEEN /hpf (5-10); White Blood Cells >100 SEEN /hpf (0-5)
[2022-04-27 16:12] LABS: Differential Comment SCANNED
[2022-04-27] MEDS: 0.9% Normal Saline 1,000 ML 999 ML IV (16:19)
[2022-04-27] MEDS: Ceftriaxone 1 GM/50 ML BAG IV (16:19)
[2022-04-27 16:36] VITALS: RESP 18
[2022-04-27 18:00] VITALS: BP 166/89; PULSE 79; RESP 18; O2SAT 94
[2022-04-27 18:55] VITALS: RESP 18
== END 2022-04-27 18:56 | disposition home or self-care (01) ==
PROVIDERS: Emergency Provider Student in an Organized Health Care Education/Training Program; PCP Family Medicine; Visit Provider Student in an Organized Health Care Education/Training Program
DX: N12 Tubulo-interstitial nephritis, not specified as acute or chronic (principal); I13.0 Hypertensive heart and chronic kidney disease with heart failure and stage 1 through stage 4 chronic kidney disease, or unspecified chronic kidney disease; I50.32 Chronic diastolic (congestive) heart failure; N18.30 Chronic kidney disease, stage 3 unspecified; E86.0 Dehydration; E78.5 Hyperlipidemia, unspecified; I25.10 Atherosclerotic heart disease of native coronary artery without angina pectoris; Z79.82 Long term (current) use of aspirin; Z79.899 Other long term (current) drug therapy
CPT/HCPCS: 74176; 80048; 81001; 85025; 96365; 99283; J7030; A4216

== ENCOUNTER → 2022-05-12 | Outpatient (CLI) | payer MEDICARE, OTHER, SELFPAY | END | disposition home or self-care (01) | LOC: LABSPEC 16:50 | PROVIDERS: PCP Family Medicine; Visit Provider Family Medicine | DX: R31.9 Hematuria, unspecified (principal) | CPT/HCPCS: 87086 ==

== ENCOUNTER → 2022-10-31 | Outpatient (CLI) | payer MEDICARE, OTHER, SELFPAY ==
[2022-10-31 13:01] LABS: Vitamin D,25 Hydroxy 73.7 ng/mL
[2022-10-31 13:23] LABS: ALB/GLOB Ratio 0.6 RATIO (0.9-2.4); AST(SGOT) 24 U/L (15-37); Alanine Aminotransfer ALT/SGPT 45 U/L (13-56); Albumin, Serum 3.2 g/dL (3.2-5.0); Alkaline Phosphatase 121 U/L (45-117); Anion Gap 8 (5-15); BUN 28 mg/dL (7-18); BUN/Creat Ratio 20.6 RATIO (10-20); Chloride 101 mmol/L (98-107); Cholesterol 143 mg/dL (200); Creatinine, Serum 1.36 mg/dL (0.55-1.02); EST Glomerular Filtration Rate 39 mL/min (>60); Est Glom Filt Rate - Afr Amer 48 mL/min (>60); Globulin 5.2 g/dL (2.2-4.2); Glucose 85 mg/dL (74-106); High Density Lipoprotein 74 mg/dL; Potassium 4.1 mmol/L (3.5-5.1); Protein, Total 8.4 g/dL (6.4-8.2); Sodium Level 136 mmol/L (136-145); Thyroid Stim Hormone (TSH) 2.78 uIU/mL (0.358-3.74); Triglycerides 51 mg/dL; Very Low Density Lipoprotein 10 mg/dL (5-40)
[2022-11-01 19:25] LABS: Thyroid Peroxidase AB 16 IU/mL (0-34)
== END | disposition home or self-care (01) ==
LOC: LAB 11:30
PROVIDERS: PCP Family Medicine; Referring Provider Internal Medicine Endocrinology, Diabetes & Metabolism; Visit Provider Internal Medicine Endocrinology, Diabetes & Metabolism
DX: Z46.81 Encounter for fitting and adjustment of insulin pump (principal); N18.30 Chronic kidney disease, stage 3 unspecified; Z96.41 Presence of insulin pump (external) (internal); E78.5 Hyperlipidemia, unspecified; M81.0 Age-related osteoporosis without current pathological fracture; I12.9 Hypertensive chronic kidney disease with stage 1 through stage 4 chronic kidney disease, or unspecified chronic kidney disease
CPT/HCPCS: 36415; 80053; 80061; 82306; 84443; 86376

== ENCOUNTER → 2022-11-21 | Outpatient (CLI) | payer MEDICARE, OTHER, SELFPAY ==
[2022-11-21 14:37] VITALS: BP 157/66; PULSE 66; RESP 16; TEMP 36; O2SAT 97; BMI 26.8
[2022-11-21] MEDS: DENOSUMAB 60 MG/ML SC (14:46)
== END | disposition home or self-care (01) ==
LOC: MEDOUTP 14:33
PROVIDERS: PCP Family Medicine; Referring Provider Internal Medicine Endocrinology, Diabetes & Metabolism; Visit Provider Internal Medicine Endocrinology, Diabetes & Metabolism
DX: M81.0 Age-related osteoporosis without current pathological fracture (principal)
CPT/HCPCS: 96372; J0897

== ENCOUNTER → 2023-05-24 | Outpatient (CLI) | payer MEDICARE, OTHER, SELFPAY ==
[2023-05-24 18:24] LABS: Color, Urine Yellow (Yellow); Glucose, Dipstick Normal (Normal); Ketone-Dipstick Negative (Negative); Leukocyte Esterase-Dipstick 500 /ul (Negative); Nitrite-Dipstick Negative (Negative); Occult Blood-Urine 25 /ul (Negative); Protein-Dipstick 30 mg/dl (Negative); Urine Bilirubin Dipstick Negative (Negative); Urine Clarity Clear (Clear); Urine Urobilinogen Normal (Normal)
[2023-05-24 19:03] LABS: Microalbumin,Random Urine 52.4 mg/L (NO RANGE EST.); Microalbumin:Creatinine Ratio 91.1 mg/g CRE (<30 mg/g CRE)
== END | disposition home or self-care (01) ==
LOC: LABSPEC 15:53
PROVIDERS: PCP Family Medicine; Referring Provider Family Medicine; Visit Provider Family Medicine
DX: N39.0 Urinary tract infection, site not specified (principal); E10.9 Type 1 diabetes mellitus without complications
CPT/HCPCS: 81002; 82043; 82570; 87077; 87086; 87088; 87186

== ENCOUNTER 2023-05-25 13:37 | Outpatient (CLI) | payer MEDICARE, OTHER, SELFPAY ==
[2023-05-25 13:48] VITALS: BP 188/67; PULSE 57; RESP 16; TEMP 35.9; O2SAT 100; BMI 24.9
[2023-05-25] MEDS: DENOSUMAB 60 MG/ML SC (13:49)
== END 2023-05-25 13:38 | disposition home or self-care (01) ==
LOC: MEDOUTP 13:38
PROVIDERS: PCP Family Medicine; Referring Provider Internal Medicine Endocrinology, Diabetes & Metabolism; Visit Provider Internal Medicine Endocrinology, Diabetes & Metabolism
DX: M81.0 Age-related osteoporosis without current pathological fracture (principal)
CPT/HCPCS: 96372; J0897

== ENCOUNTER → 2023-06-04 | Outpatient (CLI) | payer MEDICARE, OTHER, SELFPAY | END | disposition home or self-care (01) | PROVIDERS: PCP Family Medicine; Referring Provider Family Medicine; Visit Provider Family Medicine | DX: N39.0 Urinary tract infection, site not specified (principal) | CPT/HCPCS: 87086 ==

== ENCOUNTER → 2023-09-25 | Outpatient (CLI) | payer MEDICARE, OTHER, SELFPAY ==
--- NOTE | 2023-09-25 14:08 | ECHOD_ITS ---
Reason For Study: ASHD Procedure This was a 2D Doppler, Color Flow transthoracic echocardiogram. Exam performed in department. Left Ventricle Normal LV size. Left ventricular systolic function is normal. The estimated ejection fraction is 65 %. Stage 1 diastolic dysfunction. No regional wall motion abnormalities noted. Right Ventricle Normal RV size. Normal systolic function. Atria Normal left atrium. Normal right atrium. Mitral Valve There is moderate to severe mitral annular calcification. Mild (1+) mitral valve insufficiency. Tricuspid Valve Normal tricuspid valve. Moderate (2+) tricuspid valve insufficiency. Pulmonary artery systolic pressure is 76 mmHg. Moderate pulmonary hypertension. Aortic Valve Trisinus/trileaflet aortic valve. Pulmonic Valve Normal pulmonic valve. Great Vessels Normal aortic root. The pulmonary artery is normal size. Normal inferior vena cava. Pericardium/Pleural No pericardial effusion. MMode/2D Measurements & Calculations LVIDd: 4.1 cm IVSd: 0.78 cm Ao root diam: 2.6 cm LVIDs: 2.5 cm LVPWd: 0.88 cm RVDd: 3.7 cm FS: 38.9 % LAV(MOD-bp): 58.0 ml LVAd ap4: 19.7 cm2 LVAd ap2: 18.8 cm2 LAV(MOD-bp) Indexed: 36.3 ml/m2 LVLd ap4: 6.4 cm LVLd ap2: 7.0 cm LAV(MOD-sp2): 51.5 ml EDV(MOD-sp4): 49.2 ml EDV(MOD-sp2): 42.9 ml LAV(MOD-sp4): 50.5 ml EDV(sp4-el): 50.9 ml EDV(sp2-el): 42.8 ml LVAs ap4: 11.1 cm2 LVAs ap2: 9.6 cm2 LVLs ap4: 5.5 cm LVLs ap2: 5.5 cm ESV(MOD-sp4): 18.9 ml ESV(MOD-sp2): 14.5 ml ESV(sp4-el): 19.1 ml ESV(sp2-el): 14.2 ml EF(MOD-sp4): 61.7 % EF(MOD-sp2): 66.3 % EF(sp4-el): 62.4 % SV(MOD-sp4): 30.4 ml SV(MOD-sp2): 28.5 ml SV(sp4-el): 31.8 ml LA dimension(2D): 3.1 cm Aortic Valve Planimetry: 2.5 cm2 LA A4 area: 18.3 cm2 RA A4 area: 12.2 cm2 TAPSE: 2.5 cm Time Measurements MV dec time: 0.36 sec Doppler Measurements & Calculations MV E max bill: 135.3 cm/sec Lat Peak E' Bill: 4.6 cm/sec Med Peak E' Bill: 3.5 cm/sec MV A max bill: 144.1 cm/sec E/E' lat: 29.6 E/E' med: 38.6 MV E/A: 0.94 MV V2 max: 182.4 cm/sec MV P1/2t max bill: 180.7 cm/sec Ao V2 max: 109.8 cm/sec MV max P.3 mmHg MV P1/2t: 120.3 msec Ao max P.8 mmHg MV V2 mean: 117.0 cm/sec Ao V2 mean: 78.1 cm/sec MV mean P.0 mmHg MV dec slope: 439.9 cm/sec2 Ao mean P.7 mmHg MV V2 VTI: 55.7 cm MVA(P1/2t): 1.8 cm2 Ao V2 VTI: 27.0 cm AV (velocity ratio): 0.95 LV V1 max: 90.1 cm/sec PA V2 max: 99.0 cm/sec LV V1 max P.2 mmHg PA V2 mean: 74.3 cm/sec PI dec slope: 111.7 cm/sec2 LV V1 mean P.9 mmHg LV V1 mean: 66.0 cm/sec LV V1 VTI: 25.6 cm TR max bill: 414.3 cm/sec TR max P.7 mmHg ECHO/Echo Complete Interpretation Summary Normal LV size. Left ventricular systolic function is normal. The estimated ejection fraction is 65 %. Stage 1 diastolic dysfunction. Pulmonary artery systolic pressure is 76 mmHg. Moderate pulmonary hypertension. There is moderate to severe mitral annular calcification. Ordering Physician: Aneesh Conway Referring Physician: Mariano Hartman Performed By: Yasmin Gould RDCS, RVT
== END | disposition home or self-care (01) ==
PROVIDERS: PCP Family Medicine; Referring Provider Nurse Practitioner Family; Visit Provider Nurse Practitioner Family
DX: I25.10 Atherosclerotic heart disease of native coronary artery without angina pectoris (principal); I05.9 Rheumatic mitral valve disease, unspecified; I10 Essential (primary) hypertension; E78.5 Hyperlipidemia, unspecified
CPT/HCPCS: 93306

== ENCOUNTER → 2023-11-26 | Outpatient (CLI) | payer MEDICARE, OTHER, SELFPAY ==
--- OUTSIDE RECORDS SUMMARY | 2023-11-26 11:27 | XMS RPT_ITS | CCD ---
Author Name Unknown Address [address] [place] [address] Organization [facility] Care Team Providers Care Telemarketing Representative Name Role Phone YorkKanikaLeticia L Unavailable Unavailable York, Leticia L Unavailable Unavailable York, Leticia L Unavailable Unavailable WILY KENNEDY Unavailable Unavailable WILY KENNEDY Unavailable Unavailable HAI POSADAS Unavailable Unavailable MARCIA WILY Unavailable Unavailable MARCIA WILY Unavailable Unavailable HAI POSADAS Unavailable Unavailable MARY KENNEDYNETH E Unavailable Unavailable MARY KENNEDYNETH E Unavailable Unavailable Lida Polanco Unavailable Unavailable Leticia Hayden Unavailable Unavailable Hai Posadas MD Primary Care Provider [facility] Giselle SANTOS Primary Care Provider GISELLE JARRETT Primary Care Unavailable Allergies Allergy Classification Reported Allergen(s) Allergy Type Date of Onset Reaction(s) Facility (5 sources) enalapril; Translations: [ENALAPRIL] Drug Allergy 5 Cough [facility] Repository (5 sources) Thiazides; Translations: [THIAZIDES] Propensity to adverse reactions (disorder) 7 Other: See Comments [facility] Repository Medications Current Medications Medication Drug Class(es) Dates Sig (Normalized) Sig (Original) cephalexin 500 mg oral capsule (1 source) Cephalosporin Antibacterial Start: 05-14-2023 End: 05-21-2023 take 1 capsule by mouth twice daily cephALEXin (KEFLEX) 500 mg capsule Indications: Dysuria Take 1 capsule by mouth twice daily for 7 days. 14 capsule 0 05/14/2023 05/21/2023 Active Completed/Discontinued Medications Medication Drug Class(es) Dates Sig (Normalized) Sig (Original) [id number] 200 actuat albuterol 0.09 mg/actuat metered dose inhaler (2 sources) beta2-Adrenergic Agonist Start: 11-02-2021 take 2 puff(s) by inhalation every four hours as needed albuterol HFA (VENTOLIN HFA) 90 mcg/actuation inhaler Inhale 2 Puffs as instructed every 4 hours as needed. 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, uncontrolled] Onset: 02-21-2006 10-24-2021 Chronic Disorders of lipid metabolism (2 sources) Hyperlipidemia; Translations: [Hyperlipidemia, unspecified] Onset: 10-02-2011 10-02-2011 Chronic Essential hypertension (6 sources) Hypertensive disorder; Translations: [Essential (primary) hypertension] Onset: 01-10-2010 06-21-2017 Chronic Genitourinary symptoms and ill-defined conditions (1 source) Dysuria; Translations: [Dysuria] 05-14-2023 Episodic Osteoporosis (2 sources) Osteoporosis; Translations: [Age-related osteoporosis without current pathological fracture] Onset: 02-21-2006 05-11-2015 Chronic Residual codes; unclassified (1 source) Confusional state; Translations: [Disorientation, unspecified] 05-14-2023 Episodic Unclassified (2 sources) No current problems or disability 06-12-2017 Unclassified (1 source) Unknown / UNK(Unknown) Onset: 01-10-2018 Past or Other Problems Problem Classification Problem Date Documented Da te Episodic/Chronic Diabetes mellitus without complication (2 sources) Insulin pump present; Translations: [Presence of insulin pump (external) (internal)] Onset: 05-11-2015 10-24-2021 Episodic Other lower respiratory disease (4 sources) Dyspnea; Translations: [Clearing throat - hawking] Onset: 06-21-2017 06-21-2017 Episodic Other lower respiratory disease (2 sources) Clearing throat - hawking; Translations: [Other general symptoms and signs] Onset: 06-21-2017 06-21-2017 Episodic Results Test Name Value Interpretation Reference Range Facil ity Vital Signs Date Time Vital Sign Value Performing Clinician Facility 05-14-2023 13:34-0400 Diastolic blood pressure 84 mm[Hg] Conner Schultz MD Work Phone: [facility] 05-14-2023 13:34-0400 Systolic blood pressure 182 mm[Hg] Conner Schultz MD Work Phone: [facility] 05-14-2023 13:11-0400 Body temperature 96.49 [degF] Conner Schultz MD Work Phone: [facility] 05-14-2023 13:11-0400 Body weight 59.15 kg Conner Schultz MD Work Phone: [facility] 05-14-2023 13:11-0400 Heart rate 64 /min Conner Schultz MD Work Phone: [facility] 05-14-2023 13:11-0400 Respiratory rate 18 /min Conner Schultz MD Work Phone: [facility] 05-14-2023 13:11-0400 SaO2% (BldA) [Mass fraction] 98 % Conner Schultz MD Work Phone: [facility] 08-03-2017 07:07-0400 BMI (Body Mass Index) 23.73 kg/m2 Lida Polanco [facility] Work Phone: 08-03-2017 07:07-0400 Body Temperature 97.5 [degF] Lida Polanco [facility] Work Phone: 08-03-2017 07:07-0400 BP Diastolic 74 mm[Hg] Lida Polanco [facility] Work Phone: 08-03-2017 07:07-0400 BP Systolic 188 mm[Hg] Lida Polanco [facility] Work Phone: 08-03-2017 07:07-0400 Height 160.02 cm Lida Polanco [facility] Work Phone: 08-03-2017 07:07-0400 Pulse (Heart Rate) 74 /min Lida Polanco [facility] Work Phone: 08-03-2017 07:07-0400 Respiratory Rate 18 /min Lida Polanco [facility] Work Phone: 08-03-2017 07:07-0400 Weight 60.78 kg Lida Polanco [facility] Work Phone: 06-21-2017 06:20-0400 BMI (Body Mass Index) 23.2 kg/m2 Leticia Hayden [facility] Work Phone: 06-21-2017 06:20-0400 Body Temperature 97.5 [degF] Leticiafadi Hayden [facility] Work Phone: 06-21-2017 06:20-0400 BP Diastolic 82 mm[Hg] Leticia Hayden [facility] Work Phone: 06-21-2017 06:20-0400 BP Systolic 202 mm[Hg] Leticia Hayden [facility] Work Phone: 06-21-2017 06:20-0400 Height 160.02 cm Leticia Hayden [facility] Work Phone: 06-21-2017 06:20-0400 Pulse (Heart Rate) 68 /min Leticia Hayden [facility] Work Phone: 06-21-2017 06:20-0400 Respiratory Rate 18 /min Leticia Hayden [facility] Work Phone: 06-21-2017 06:20-0400 Weight 59.42 kg Leticiafadi Hayden [facility] Work Phone: Encounters Encounter Date Encounter Type Care Provider Facility Start: 05-14-2023 End: 05-14-2023 [facility] Facility:[facility] Start: 05-14-2023 End: 05-14-2023 Patient encounter procedure Conner Schultz MD Work Phone: [facility] Procedures Date Procedure Procedure Detail Performing Clinician Start: 05-14-2023 Urnls dip stick/tabl et rgnt auto w/o microscopy Zo Johnson PA-C Work Phone: Plan of Treatment Date Care Activity Detail Author Start: 06-29-2023 Influenza vaccination INFLUENZA (#1) [facility] Start: 10-29-2022 ADVANCE DIRECTIVE DISCUSSION ADVANCE DIRECTIVE DISCUSSION [facility] Start: 10-29-2022 DEPRESSION ASSESSMENT DEPRESSION ASSESSMENT [facility] Start: 06-29-2022 Influenza vaccination INFLUENZA (Season Ended) [facility] Start: 10-29-2021 ADVANCE DIRECTIVE DISCUSSION ADVANCE DIRECTIVE DISCUSSION [facility] Start: 10-06-2020 Hepatitis B screening URINE ALBUMIN:CREATININE RATIO [facility] Start: 07-01-2020 Hepatitis B surface antibody level LDL CHOLESTEROL [facility] Start: 01-05-2020 Hemoglobin A1c/Hemoglobin.total in Blood HBA1C [facility] Start: 08-03-2017 End: 08-03-2017 Appointment Appointment [facility] Work Phone: Start: 06-21-2017 End: 06-21-2017 DMB [facility] Work Phone: Start: 06-21-2017 End: 06-21-2017 Follow Up Appt 6 weeks Follow Up Appt 6 weeks [facility] Work Phone: Start: 06-21-2017 End: 06-21-2017 Pulmonary Function Test - complete Pulmonary Function Test - complete [facility] Work Phone: Start: 06-21-2017 End: 06-21-2017 Appointment Appointment [facility] Work Phone: Start: 06-21-2017 End: 06-21-2017 DMB D[facility] Work Phone: Start: 06-21-2017 End: 06-21-2017 Follow Up Appt 6 weeks Follow Up Appt 6 weeks [facility] Work Phone: Start: 06-21-2017 End: 06-21-2017 Pulmonary Function Test - complete Pulmonary Function Test - complete [facility] Work Phone: Start: 09-07-2016 Hepatitis C antibody, confirmatory test DILATED RETINAL EXAM [facility] Start: 10-07-2015 3 comp foot exam completed DIABETIC FOOT EXAM [facility] Start: 05-03-2012 PNEUMOCOCCAL: 65+ (2 - PCV) PNEUMOCOCCAL: 65+ (2 - PCV) [facility] Start: 1988 SHINGRIX VACCINE (1 of 2) SHINGRIX VACCINE (1 of 2) [facility] Start: 1957 Urine microalbumin profile DTAP,TDAP,TD (1 - Tdap) [facility] Start: 06-17-1939 COVID-19 VACCINE (#1) COVID-19 VACCINE (#1) [facility] Bacteria identified in Urine by Culture URINE CULTURE Microbiology Routine Dysuria 05/14/2023 3:11 PM EDT [facility] Work Phone: Immunizations Immunization Date Immunization Notes Care Provider Betzaida paige 07-28-2013 influenza virus vacc ine, unspecified formulation Radha Abreu APRN.[facility] Work Phone: [facility] 08-09-2012 influenza virus vacc ine, unspecified formulation Radha Abreu APRN.[facility] Work Phone: [facility] 05-03-2011 pneumococcal polysaccharide vaccine, 23 valent Radha Abreu APRN.[facility] Work Phone: [facility] Work Phone: 10-14-2009 novel influenza-H1N1 -09, all formulations Radha Abreu APRN.HELP DESK TEAM LEADER Work Phone: [facility] Work Phone: 10-14-2008 influenza virus vacc ine, unspecified formulation Radha Abreu APRN.HELP DESK TEAM LEADER Work Phone: [facility] Work Phone: 10-31-2006 influenza virus vacc ine, unspecified formulation Radha Abreu APRN.HELP DESK TEAM LEADER Work Phone: [facility] Work Phone: Payers Date Payer Category Payer Unknown 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 STANDARD LIFE 2ND [id number] 2011-Present [phone] [address] [place] [address] Indemnity [id number] 2011 Unknown 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 STANDARD LIFE 2ND [id number] 2011-Present [phone] [address] [place] [address] Indemnity [id number] 2011 Unknown [id number] 2003 Medicare MEDICARE MEDICAR E A AND B [id number] 2003-Present [phone] [place] [address] Medicare [id number] 2003 Medicare MEDICARE MEDICAR E A AND B [id number] 2003-Present [phone] [place] [address] Medicare [id number] 2003 Medicare [id number] Medicare [id number] Social History Date Type Detail Facility [facility]: [facility]07[facility] Start: 11-02-2021 End: 05-14-2023 Alcohol intake Current non-drinker of alcohol (finding) [facility] Start: 1940 Sex Assigned At Not on file [facility] Start: 07-07-2011 Tobacco use and exposure Smokeless tobacco non-user [facility] Work Phone: Start: 05-14-2023 History of Social function [facility] Start: 05-14-2023 Tobacco use panel [facility] Progress note 05-14-2023 Note Date & Type Note Facility 05-14-2023 Note HNO ID: [id number] Author: Conner Schultz MD Service: ? Author Type: Physician Type: Progress Notes Filed: 05/14/2023 2:12 PM Note Text: Patient presents with: UTI: Possible, confusion HPI: Symptoms for 10 days. She seems confused and her aid suggested she be checked for a UTI. Decreased comprehension and asking more questions. Less stable walking (was on a walker after COVID Oct 2021 but has been walking without a cane for some time). Her weight is down about 5 #. Dysuria: Yes, 2 days ago Frequency: Yes Hematuria: No Nausea: No. Reports some constipation. Fever or chills: No Back pain: No Abdominal pain: had discomfort that improved with voiding this weekend Prior UTI: Yes, hospitalized in the last year. On insulin pump. Glc 220 this morning. She is working out issues with a new insulin pump. A1c 6.8. Home BP 130s. Usually has high BP at the doctor's office. Denies chest pain, shortness of breath, palpitations, or edema. 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 atorvastatin (LIPITOR) 10 mg tablet Take 1 tablet by mouth every afternoon. brimonidine (ALPHAGAN) 0.2 % ophthalmic solution Use 1 Drop in both eyes twice daily. FREESTYLE OBDULIO 2 SENSOR kit Apply 1 sensor to skin every 14 days. Remove old sensor. Rotate sites. latanoprost (XALATAN) 0.005 % ophthalmic solution instill 1 drop into both eyes once daily zinc sulfate (ZINC-15 ORAL) Take by mouth. CENTRUM WOMEN MULTIVITAMIN GUMMY albuterol HFA (VENTOLIN HFA) 90 mcg/actuation inhaler Inhale 2 Puffs as instructed every 4 hours as needed. losartan (COZAAR) 50 mg tablet Take 50 mg in the AM and 25 mg at bedtime ergocalciferol, vitamin D2, (VITAMIN D) 50,000 unit capsule Take 50,000 Units by mouth every 2 weeks. insulin lispro (HUMALOG) 100 unit/mL injection Uses up to 100 units every 3 days. lovastatin (MEVACOR) 20 mg tablet Take 1 tablet by mouth daily at bedtime. metoprolol tartrate, short acting, (LOPRESSOR) 50 mg tablet Take 0.5 tablets by mouth twice daily. aspirin, enteric coated (ECOTRIN LOW STRENGTH) 81 mg ORAL EC tablet Take 1 tablet by mouth once daily. CALCIUM 500 WITH VITAMIN D 500 MG-125 UNIT TAB 1 twice a day No current facility-administered medications for this visit. ALLERGIES: ALLERGIES Allergen Reactions Enalapril Cough Hctz [Thiazides] Other: See Comments Hyponatremia VITALS: BP 182/84 Pulse 64 Temp (!) 35.8 ?C (96.5 ?F) Resp 18 Wt 59.1 kg (130 lb 6.4 oz) SpO2 98% BMI 23.10 kg/m? Last 8 Encounter BP Readings: Date: BP: 05/14/2023 227/99 11/02/2021 128/64 11/14/2019 142/86 08/02/2018 162/78 01/10/2018 150/78 07/13/2017 120/54 02/23/2017 192/72[patient brought home BP[ 01/11/2017 170/78 Last 6 Encounter Wt Readings: Date: Wt: 05/14/2023 59.1 kg (130 lb 6.4 oz) 11/02/2021 67.2 kg (148 lb 3.2 oz) 11/14/2019 62.6 kg (138 lb) 08/02/2018 63.5 kg (140 lb) 01/10/2018 62.9 kg (138 lb 11.2 oz) 07/13/2017 62 kg (136 lb 9.6 oz) PHYSICAL EXAM: GEN: pleasant, NAD, accompanied by her daughter. HEENT: EOMI, conjunctiva clear, HEART: regular rate and rhythm, no murmurs LUNGS: clear to auscultation, no wheezes or crackles, no increased WOB ABDOMEN: Soft, nondistended, no masses, no suprapubic tenderness BACK: No CVA tenderness EXT: no edema NEURO: Alert and oriented to person, place, and time. CN II-XII intact. Normal strength. Get up and go < 10 seconds, ambulates without assistance. No tremor. ASSESSMENT/PLAN: 1. Dysuria - ICD9: 788.1, ICD10: R30.0 (primary diagnosis) - UA positive for holly esterase, hematuria, proteinuria, and glucose. Suspect UTI. - UA DIP, URINE (POC) - URINE CULTURE - CEPHALEXIN 500 MG CAPSULE 2. Confusion - ICD9: 298.9, ICD10: R41.0 Discussed incomplete confusion evaluation in the [facility]. She has been stable the last few days. She will try antibiotic for UTI and keep her follow up with her PCP next week. She will go to the ER if there is no significant improvement in her cognition and strength. Conner Schultz MD [facility] History of Present illness Narrative 05-14-2023 Conner Schultz MD - 05/14/2023 1:19 PM EDT Note Date & Type Note Facility 05-14-2023 History of Presen t illness Narrative Patient presents with: UTI: Possible, confusion HPI: Symptoms for 10 days. She seems confused and her aid suggested she be checked for a UTI. Decreased comprehension and asking more questions. Less stable walking (was on a walker after COVID Oct 2021 but has been walking without a cane for some time). Her weight is down about 5 #. Dysuria: Yes, 2 days ago Frequency: Yes Hematuria: No Nausea: No. Reports some constipation. Fever or chills: No Back pain: No Abdominal pain: had discomfort that improved with voiding this weekend Prior UTI: Yes, hospitalized in the last year. On insulin pump. Glc 220 this morning. She is working out issues with a new insulin pump. A1c 6.8. Home BP 130s. Usually has high BP at the doctor's office. Denies chest pain, shortness of breath, palpitations, or edema. 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 atorvastatin (LIPITOR) 10 mg tablet Take 1 tablet by mouth every afternoon. brimonidine (ALPHAGAN) 0.2 % ophthalmic solution Use 1 Drop in both eyes twice daily. FREESTYLE OBDULIO 2 SENSOR kit Apply 1 sensor to skin every 14 days. Remove old sensor. Rotate sites. latanoprost (XALATAN) 0.005 % ophthalmic solution instill 1 drop into both eyes once daily zinc sulfate (ZINC-15 ORAL) Take by mouth. CENTRUM WOMEN MULTIVITAMIN GUMMY albuterol HFA (VENTOLIN HFA) 90 mcg/actuation inhaler Inhale 2 Puffs as instructed every 4 hours as needed. losartan (COZAAR) 50 mg tablet Take 50 mg in the AM and 25 mg at bedtime ergocalciferol, vitamin D2, (VITAMIN D) 50,000 unit capsule Take 50,000 Units by mouth every 2 weeks. insulin lispro (HUMALOG) 100 unit/mL injection Uses up to 100 units every 3 days. lovastatin (MEVACOR) 20 mg tablet Take 1 tablet by mouth daily at bedtime. metoprolol tartrate, short acting, (LOPRESSOR) 50 mg tablet Take 0.5 tablets by mouth twice daily. aspirin, enteric coated (ECOTRIN LOW STRENGTH) 81 mg ORAL EC tablet Take 1 tablet by mouth once daily. CALCIUM 500 WITH VITAMIN D 500 MG-125 UNIT TAB 1 twice a day No current facility-administered medications for this visit. ALLERGIES: ALLERGIES Allergen Reactions Enalapril Cough Hctz [Thiazides] Other: See Comments Hyponatremia VITALS: BP 182/84 Pulse 64 Temp (!) 35.8 C (96.5 F) Resp 18 Wt 59.1 kg (130 lb 6.4 oz) SpO2 98% BMI 23.10 kg/m Last 8 Encounter BP Readings: Date: BP: 05/14/2023 227/99 11/02/2021 128/64 11/14/2019 142/86 08/02/2018 162/78 01/10/2018 150/78 07/13/2017 120/54 02/23/2017 192/72[patient brought home BP[ 01/11/2017 170/78 Last 6 Encounter Wt Readings: Date: Wt: 05/14/2023 59.1 kg (130 lb 6.4 oz) 11/02/2021 67.2 kg (148 lb 3.2 oz) 11/14/2019 62.6 kg (138 lb) 08/02/2018 63.5 kg (140 lb) 01/10/2018 62.9 kg (138 lb 11.2 oz) 07/13/2017 62 kg (136 lb 9.6 oz) PHYSICAL EXAM: GEN: pleasant, NAD, accompanied by her daughter. HEENT: EOMI, conjunctiva clear, HEART: regular rate and rhythm, no murmurs LUNGS: clear to auscultation, no wheezes or crackles, no increased WOB ABDOMEN: Soft, nondistended, no masses, no suprapubic tenderness BACK: No CVA tenderness EXT: no edema NEURO: Alert and oriented to person, place, and time. CN II-XII intact. Normal strength. Get up and go < 10 seconds, ambulates without assistance. No tremor. ASSESSMENT/PLAN: 1. Dysuria - ICD9: 788.1, ICD10: R30.0 (primary diagnosis) - UA positive for holly esterase, hematuria, proteinuria, and glucose. Suspect UTI. - UA DIP, URINE (POC) - URINE CULTURE - CEPHALEXIN 500 MG CAPSULE 2. Confusion - ICD9: 298.9, ICD10: R41.0 Discussed incomplete confusion evaluation in the [facility]. She has been stable the last few days. She will try antibiotic for UTI and keep her follow up with her PCP next week. She will go to the ER if there is no significant improvement in her cognition and strength. Conner Schultz MD documented in this encounter [facility] History of Present illness Narrative 04-27-2022 Radha Abreu APRN.HELP DESK TEAM LEADER - 04/27/2022 2:31 PM EDT Note Date & Type Note Facility 04-27-2022 History of Presen t illness Narrative Patient came in with complaints of left side abdominal pain said she had to hold her stomach and it got worse throughout the day. Said it all the sudden alleviated a few minuets ago but was consistent from 10 on. patient is not constipated. Did vomit with the patient and has blood in her urine. patient denies any other symptoms. Due to the severity of pain and the fact that it alleviated al the sudden patient was sent to the ER daughter with patient and both were okay with this care plan. documented in this encounter [facility] Evaluation note Note Date & Type Note Facility documented in this encounter [facility] Evaluation note Note Date & Type Note Facility documented in this encounter [facility] Summary Purpose Family History No Family History Records FoundNo Family History Records FoundNo Family History Records Found Advance Directives No Advanced Directives Records FoundNo Advanced Directives Records FoundNo Advanced Directives Records Found Additional Source Comments INFORMATION SOURCE (unrecogn ized section and content) DATE CREATED AUTHOR AUTHOR'S ORGANIZ ATION 09/28/2018 [facility] DATE CREATED AUTHOR AUTHOR'S ORGANIZ ATION 05/17/2023 [facility] Source Comments (unrecognize d section and content) In the event this informatio n is protected by the Federal Confidentiality of Alcohol and Drug Abuse Patient Records regulations: The Federal rules restrict any use of the information to criminally investigate or prosecute any alcohol or drug abuse patient.[facility] the event this information is protected by the Federal Confidentiality of Alcohol and Drug Abuse Patient Records regulations: The Federal rules restrict any use of the information to criminally investigate or prosecute any alcohol or drug abuse patient.[facility] Care Teams (unrecognized sec tion and content) Telemarketing Representative Relationship Specialty Start Date End Date MinnieGiselle esquivelDO [address] [place] [address] PCP - General Family Medicine 05/14/23 Reason for Visit (unrecogniz ed section and content) FOR RECORDS PERTAINING TO PATIENTS WHO ARE OR HAVE BEEN ENROLLED IN A CHEMICAL DEPENDENCY/SUBSTANCEABUSE PROGRAM, SOME INFORMATION MAY BE OMITTED. This clinical summary was aggregated from multiple sources. Caution should be exercised in using it in the provision of clinical care. This summary normalizes information from multiple sources, and as a consequence, information in this document may materially change the coding, format and clinical context of patient data. In addition, data may be omitted in some cases. CLINICAL DECISIONS SHOULD BE BASED ON THE PRIMARY CLINICAL RECORDS. [employer] [facility]. provides no warranty or guarantee of the accuracy or completeness of information in this document.
[2023-11-26 12:02] LABS: Absolute Lymphocyte Count 0.63 X10^3/uL (0.83-4.51); Absolute Neutrophil Count 3.1 X10^3/uL (2.0-7.7); Basophil# 0.01 X10^3/uL; Basophil% 0.2 % (0-1); Eosinophil# 0.13 X10^3/uL; Hematocrit 36.4 % (37-47); Lymphocyte # 0.63 X10^3/ul (0.83-4.51); Lymphocyte % 14.7 % (19-41); Mean Corpuscular Hgb 30.1 pg (27.0-32.0); Mean Corpuscular Volume 91.2 fL (81-99); Monocyte# 0.36 X10^3/uL; Monocyte% 8.4 % (0-10); NRBC Flagged by Analyzer 0 % (0-5); Neutrophil # 3.13 X10^3/uL (2.7-7.7); Platelet Count 188 K/mm3 (150-450); RBC Distribution Width CV 12.8 % (11.6-14.6); RBC Distribution Width SD 42.3 fl (35.1-43.9); Red Blood Count 3.99 M/mm3 (4.2-5.4); White Blood Count 4.3 K/mm3 (4.4-11.0)
[2023-11-26 13:57] LABS: ALB/GLOB Ratio 0.8 RATIO (0.9-2.4); AST(SGOT) 16 U/L (15-37); Alanine Aminotransfer ALT/SGPT 18 U/L (13-56); Albumin, Serum 3.4 g/dL (3.2-5.0); Alkaline Phosphatase 47 U/L (45-117); Anion Gap 4 (5-15); BUN 23 mg/dL (7-18); BUN/Creat Ratio 15.2 RATIO (10-20); Calcium,Total 9.6 mg/dL (8.5-10.1); Chloride 103 mmol/L (98-107); Cholesterol 160 mg/dL (200); Creatinine, Serum 1.51 mg/dL (0.55-1.02); EST Glomerular Filtration Rate 35 mL/min (>60); Est Glom Filt Rate - Afr Amer 42 mL/min (>60); Globulin 4.1 g/dL (2.2-4.2); Glucose 184 mg/dL (74-106); High Density Lipoprotein 86 mg/dL; Potassium 3.9 mmol/L (3.5-5.1); Protein, Total 7.5 g/dL (6.4-8.2); Sodium Level 137 mmol/L (136-145); Triglycerides 51 mg/dL; Very Low Density Lipoprotein 10 mg/dL (5-40)
== END | disposition home or self-care (01) ==
LOC: BFHLAB 10:48
PROVIDERS: PCP Family Medicine; Visit Provider Family Medicine
DX: I10 Essential (primary) hypertension (principal); I25.10 Atherosclerotic heart disease of native coronary artery without angina pectoris
CPT/HCPCS: 36415; 80053; 80061; 85025

== ENCOUNTER → 2023-12-04 | Outpatient (CLI) | payer MEDICARE, OTHER, SELFPAY ==
--- NOTE | 2023-12-04 13:32 | RAD_ITS ---
STUDY: X-RAY - RIGHT RADIUS AND ULNA REASON FOR EXAM: Female, 82 years old. ARM INJURY TECHNIQUE: 3 view(s) of the forearm. COMPARISON: Comparison is made with prior study dated 12/18/2019. FINDINGS: Vascular calcification. Healed fracture of the distal radial metaphysis. Normal visualized ulna. RAD/Forearm 2 Views IMPRESSION: Healed distal radial fracture. No definite acute fracture is seen. Electronically Signed: Campos Nicole MD at 14:22 EST ,
--- OUTSIDE RECORDS SUMMARY | 2023-12-04 17:39 | XMS RPT_ITS | CCD ---
Author Name Unknown Address [address] [place] [address] Organization [facility] Care Team Providers Care Deli Cook Name Role Phone YorkKanikaLeticia L Unavailable Unavailable [...] Unavailable Hai Posadas MD Primary Care Provider [facility] Giselle SANTOS Primary Care Provider GISELLE JARRETT Primary Care Unavailable Allergies Allergy Classification Reported Allergen(s) Allergy Type Date of Onset Reaction(s) Facility (5 sources) enalapril; Translations: [ENALAPRIL] Drug Allergy 5 Cough [facility] Repository (5 sources) Thiazides; Translations: [THIAZIDES] Propensity to adverse reactions (disorder) 7 Other: See Comments [facility] Repository Medications Current Medications Medication Drug Class(es) [...] Drug Class(es) Dates Sig (Normalized) Sig (Original) [id number] 200 actuat albuterol 0.09 mg/actuat metered dose [...] disease (4 sources) Atherosclerotic heart disease of [place] coronary artery without angina pectoris; Translations: [Coronary [...] 84 mm[Hg] Conner Schultz MD Work Phone: [facility] 05-14-2023 13:34-0400 Systolic blood pressure 182 mm[Hg] Conner Schultz MD Work Phone: [facility] 05-14-2023 13:11-0400 Body temperature 96.49 [degF] Conner Schultz MD Work Phone: [facility] 05-14-2023 13:11-0400 Body weight 59.15 kg Conner Schultz MD Work Phone: [facility] 05-14-2023 13:11-0400 Heart rate 64 /min Conner Schultz MD Work Phone: [facility] 05-14-2023 13:11-0400 Respiratory rate 18 /min Conner Schultz MD Work Phone: [facility] 05-14-2023 13:11-0400 SaO2% (BldA) [Mass fraction] 98 % Conner Schultz MD Work Phone: [facility] 08-03-2017 07:07-0400 BMI (Body Mass Index) 23.73 kg/m2 Lida Polanco [facility] Work Phone: 08-03-2017 07:07-0400 Body Temperature 97.5 [degF] Lida Polanco [facility] Work Phone: 08-03-2017 07:07-0400 BP Diastolic 74 mm[Hg] Lida Polanco [facility] Work Phone: 08-03-2017 07:07-0400 BP Systolic 188 mm[Hg] Lida Polanco [facility] Work Phone: 08-03-2017 07:07-0400 Height 160.02 cm Lida Polanco [facility] Work Phone: 08-03-2017 07:07-0400 Pulse (Heart Rate) 74 /min Lida Polanco [facility] Work Phone: 08-03-2017 07:07-0400 Respiratory Rate 18 /min Lida Polanco [facility] Work Phone: 08-03-2017 07:07-0400 Weight 60.78 kg Lida Polanco [facility] Work Phone: 06-21-2017 06:20-0400 BMI (Body Mass Index) 23.2 kg/m2 Leticia Hayden [facility] Work Phone: 06-21-2017 06:20-0400 Body Temperature 97.5 [degF] Leticiafadi Hayden [facility] Work Phone: 06-21-2017 06:20-0400 BP Diastolic 82 mm[Hg] Leticia Hayden [facility] Work Phone: 06-21-2017 06:20-0400 BP Systolic 202 mm[Hg] Leticia Hayden [facility] Work Phone: 06-21-2017 06:20-0400 Height 160.02 cm Leticia Hayden [facility] Work Phone: 06-21-2017 06:20-0400 Pulse (Heart Rate) 68 /min Leticia Hayden [facility] Work Phone: 06-21-2017 06:20-0400 Respiratory Rate 18 /min Leticia Hayden [facility] Work Phone: 06-21-2017 06:20-0400 Weight 59.42 kg Leticiafadi Hayden [facility] Work Phone: Encounters Encounter Date Encounter Type Care Provider Facility Start: 05-14-2023 End: 05-14-2023 [facility] Facility:[facility] Start: 05-14-2023 End: 05-14-2023 Patient encounter procedure Conner Schultz MD Work Phone: [facility] Procedures Date Procedure Procedure Detail Performing Clinician Start: 05-14-2023 Urnls dip stick/tabl et rgnt auto w/o microscopy Zo Johnson PA-C Work Phone: Plan of Treatment Date Care Activity Detail Author Start: 06-29-2023 Influenza vaccination INFLUENZA (#1) [facility] Start: 10-29-2022 ADVANCE DIRECTIVE DISCUSSION ADVANCE DIRECTIVE DISCUSSION [facility] Start: 10-29-2022 DEPRESSION ASSESSMENT DEPRESSION ASSESSMENT [facility] Start: 06-29-2022 Influenza vaccination INFLUENZA (Season Ended) [facility] nancy Start: 10-29-2021 ADVANCE DIRECTIVE DISCUSSION ADVANCE DIRECTIVE DISCUSSION [facility] Start: 10-06-2020 Hepatitis B screening URINE ALBUMIN:CREATININE RATIO [facility] Start: 07-01-2020 Hepatitis B surface antibody level LDL CHOLESTEROL [facility] Start: 01-05-2020 Hemoglobin A1c/Hemoglobin.total in Blood HBA1C [facility] Start: 08-03-2017 End: 08-03-2017 Appointment Appointment [facility] Work Phone: Start: 06-21-2017 End: 06-21-2017 DMB DMB [facility] Work Phone: Start: 06-21-2017 End: 06-21-2017 Follow Up Appt 6 weeks Follow Up Appt 6 weeks [facility] Work Phone: Start: 06-21-2017 End: 06-21-2017 Pulmonary Function Test - complete Pulmonary Function Test - complete [facility] Work Phone: Start: 06-21-2017 End: 06-21-2017 Appointment Appointment [facility] Work Phone: Start: 06-21-2017 End: 06-21-2017 DMB [...] C antibody, confirmatory test DILATED RETINAL EXAM [facility] Start: 10-07-2015 3 comp foot exam completed DIABETIC FOOT EXAM [facility] Start: 05-03-2012 PNEUMOCOCCAL: 65+ (2 - PCV) PNEUMOCOCCAL: 65+ (2 - PCV) [facility] Start: 1988 SHINGRIX VACCINE (1 of 2) SHINGRIX VACCINE (1 of 2) [facility] Start: 1957 Urine microalbumin profile DTAP,TDAP,TD (1 - Tdap) [facility] Start: 06-17-1939 COVID-19 VACCINE (#1) COVID-19 VACCINE (#1) [facility] Bacteria identified in Urine by Culture URINE CULTURE Microbiology Routine Dysuria 05/14/2023 3:11 PM EDT [facility] Work Phone: Immunizations Immunization Date Immunization Notes Care Provider Betzaida paige 07-28-2013 influenza virus vacc ine, unspecified formulation Radha Abreu APRN.[facility] Work Phone: [facility] 08-09-2012 influenza virus vacc ine, unspecified formulation Radha Abreu APRN.[facility] Work Phone: [facility] 05-03-2011 pneumococcal polysaccharide vaccine, 23 valent Radha Abreu APRN.[facility] Work Phone: [facility] Work Phone: 10-14-2009 novel influenza-H1N1 -09, all formulations Radha Abreu APRN.[employer] Work Phone: [facility] Work Phone: 10-14-2008 influenza virus vacc ine, unspecified formulation Radha Abreu APRN.[employer] Work Phone: [facility] Work Phone: 10-31-2006 influenza virus vacc ine, unspecified formulation Radha Abreu APRN.[employer] Work Phone: [facility] Work Phone: Payers Date Payer Category Payer Unknown 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 STANDARD LIFE 2ND [id number] 2011-Present [phone] [address] [place] [address] Indemnity [id number] 2011 Unknown 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 STANDARD LIFE 2ND [id number] 2011-Present [phone] [address] [place] [address] Indemnity [id number] 2011 Unknown [id number] 2003 Medicare MEDICARE MEDICAR E A AND B [id number] 2003-Present [phone] [place] [address] Medicare [id number] 2003 Medicare MEDICARE MEDICAR E A AND B [id number] 2003-Present [phone] [place] [address] Medicare [id number] 2003 Medicare [id number] Medicare [id number] Social History Date Type Detail Facility Start: 07-07-2011 [facility] Start: 11-02-2021 End: 05-14-2023 Alcohol intake Current non-drinker of alcohol (finding) [facility] Start: 1940 Sex Assigned At Not on file [facility] Start: 07-07-2011 Tobacco use and exposure Smokeless tobacco non-user [facility] Work Phone: Start: 05-14-2023 History of Social function [facility] Start: 05-14-2023 Tobacco use panel [facility] Progress note 05-14-2023 Note Date & Type Note Facility 05-14-2023 Note HNO ID: [id number] Author: Conner Schultz MD Service: ? Author [...] her cognition and strength. Conner Schultz MD [facility] History of Present illness Narrative 05-14-2023 Conner [...] Conner Schultz MD documented in this encounter [facility] History of Present illness Narrative 04-27-2022 Radha Abreu APRN.[employer] - 04/27/2022 2:31 PM EDT Note Date [...] this care plan. documented in this encounter [facility] Evaluation note Note Date & Type Note Facility documented in this encounter [facility] Evaluation note Note Date & Type Note Facility documented in this encounter [facility] Summary Purpose Family History No Family History Records FoundNo Family History Records FoundNo Family History Records Found Advance Directives No Advanced Directives Records FoundNo Advanced Directives Records FoundNo Advanced Directives Records Found Additional Source Comments INFORMATION SOURCE (unrecogn ized section and content) DATE CREATED AUTHOR AUTHOR'S ORGANIZ ATION 09/28/2018 [facility] DATE CREATED AUTHOR AUTHOR'S ORGANIZ ATION 05/17/2023 [facility] Source Comments (unrecognize d section and content) In the event this informatio n is protected by the Federal Confidentiality of Alcohol and Drug Abuse Patient Records regulations: The Federal rules restrict any use of the information to criminally investigate or prosecute any alcohol or drug abuse patient.[facility] the event this information is protected by the Federal Confidentiality of Alcohol and Drug Abuse Patient Records regulations: The Federal rules restrict any use of the information to criminally investigate or prosecute any alcohol or drug abuse patient.[facility] Care Teams (unrecognized sec tion and content) Deli Cook Relationship Specialty Start Date End Date MinnieGiselle esquivelDO [address] [place] [address] PCP - General Family Medicine 05/14/23 Reason [...] BE BASED ON THE PRIMARY CLINICAL RECORDS. [employer] [facility]. provides no warranty or guarantee of the accuracy or completeness of information in this document.
== END | disposition home or self-care (01) ==
LOC: MTRAD 13:30
PROVIDERS: PCP Family Medicine; Referring Provider Family Medicine; Visit Provider Family Medicine
DX: S49.90XA Unspecified injury of shoulder and upper arm, unspecified arm, initial encounter (principal); X58.XXXA Exposure to other specified factors, initial encounter
CPT/HCPCS: 73090

== ENCOUNTER → 2024-07-01 | Outpatient (CLI) | payer MEDICARE, OTHER, SELFPAY ==
[2024-07-01 15:51] LABS: Vitamin D,25 Hydroxy 55.4 ng/mL
[2024-07-01 16:13] LABS: ALB/GLOB Ratio 0.7 RATIO (0.9-2.4); AST(SGOT) 20 U/L (15-37); Alanine Aminotransfer ALT/SGPT 14 U/L (13-56); Albumin, Serum 3.1 g/dL (3.2-5.0); Alkaline Phosphatase 48 U/L (45-117); Anion Gap 6 (5-15); BUN 38 mg/dL (7-18); BUN/Creat Ratio 22.6 RATIO (10-20); Calcium,Total 9.6 mg/dL (8.5-10.1); Chloride 104 mmol/L (98-107); Creatinine, Serum 1.68 mg/dL (0.55-1.02); EST Glomerular Filtration Rate 31 mL/min (>60); Est Glom Filt Rate - Afr Amer 37 mL/min (>60); Globulin 4.2 g/dL (2.2-4.2); Glucose 93 mg/dL (74-106); Potassium 4.3 mmol/L (3.5-5.1); Protein, Total 7.3 g/dL (6.4-8.2); Sodium Level 139 mmol/L (136-145)
== END | disposition home or self-care (01) ==
LOC: BFHLAB 11:20
PROVIDERS: PCP Family Medicine; Referring Provider Family Medicine; Visit Provider Family Medicine
DX: N18.32 Chronic kidney disease, stage 3b (principal); M81.0 Age-related osteoporosis without current pathological fracture
CPT/HCPCS: 36415; 80053; 82306

== ENCOUNTER → 2024-12-29 | Outpatient (CLI) | payer MEDICARE, OTHER, SELFPAY ==
[2024-12-29 15:37] LABS: Absolute Lymphocyte Count 0.29 X10^3/uL (0.83-4.51); Absolute Neutrophil Count 3.8 X10^3/uL (2.0-7.7); Basophil# 0.02 X10^3/uL; Basophil% 0.4 % (0-1); Eosinophil# 0.23 X10^3/uL; Eosinophils% 4.9 % (0-5); Hematocrit 36.5 % (37-47); Hemoglobin 12.1 g/dL (12.0-15.0); Lymphocyte # 0.29 X10^3/ul (0.83-4.51); Lymphocyte % 6.2 % (19-41); Mean Corp Hgb Conc 33.2 g/dL (32-36); Mean Corpuscular Hgb 30.1 pg (27.0-32.0); Mean Corpuscular Volume 90.8 fL (81-99); Mean Platelet Vol. 10.2 fl (6.2-12.0); Monocyte# 0.38 X10^3/uL; Monocyte% 8.1 % (0-10); NRBC Flagged by Analyzer 0 % (0-5); Neutrophil # 3.75 X10^3/uL (2.7-7.7); Neutrophil % 80.2 % (47-70); POSITIVE DIFFERENTIAL YES; Platelet Count 201 K/mm3 (150-450); RBC Distribution Width CV 13.2 % (11.6-14.6); RBC Distribution Width SD 43.3 fl (35.1-43.9); Red Blood Count 4.02 M/mm3 (4.2-5.4); White Blood Count 4.7 K/mm3 (4.4-11.0)
[2024-12-29 21:11] LABS: Microalbumin,Random Urine 59.8 mg/L (NO RANGE EST.)
[2024-12-29 21:31] LABS: AST(SGOT) 28 U/L (<=31); Alanine Aminotransfer ALT/SGPT 13 U/L (<=34); Albumin, Serum 4.1 g/dL (3.4-4.8); Alkaline Phosphatase 59 U/L (35-104); Anion Gap 13 (5-15); BUN 30 mg/dL (4-19); BUN/Creat Ratio 20.8 RATIO (10-20); Carbon Dioxide 24.9 mmol/L (22.0-29.0); Chloride 98 mmol/L (96-108); Creatinine, Serum 1.43 mg/dL (0.70-1.20); EST Glomerular Filtration Rate 36 (>60); Globulin 3.9 g/dL (2.2-4.2); Glucose 186 mg/dL (70-99); Potassium 4.2 mmol/L (3.3-5.1); Sodium Level 136 mmol/L (133-145); Total Bilirubin 0.41 mg/dL (0.00-1.30)
[2024-12-29 22:30] LABS: Cholesterol 166 mg/dL (<=200); High Density Lipoprotein 79 mg/dL; Low Density Lipoprotein Calc. 73 mg/dL; Triglycerides 74 mg/dL; Very Low Density Lipoprotein 15 mg/dL (5-40); cholesterol:hdl ratio screen 2.11
[2024-12-30 03:31] LABS: PTHIN 63 pg/mL (11-61)
== END | disposition home or self-care (01) ==
LOC: BFHLAB 11:16
PROVIDERS: PCP Family Medicine; Referring Provider Family Medicine; Visit Provider Family Medicine
DX: I12.9 Hypertensive chronic kidney disease with stage 1 through stage 4 chronic kidney disease, or unspecified chronic kidney disease (principal); E10.22 Type 1 diabetes mellitus with diabetic chronic kidney disease; N18.32 Chronic kidney disease, stage 3b
CPT/HCPCS: 36415; 80053; 80061; 82043; 83970; 85025

== ENCOUNTER → 2025-05-12 | Outpatient (CLI) | payer MEDICARE, OTHER, SELFPAY | END | disposition home or self-care (01) | LOC: LABSPEC 11:06 | PROVIDERS: PCP Family Medicine; Visit Provider Family Medicine | DX: R82.90 Unspecified abnormal findings in urine (principal) | CPT/HCPCS: 87077; 87086; 87088; 87186 ==

== ENCOUNTER → 2025-06-01 | Outpatient (CLI) | payer MEDICARE, OTHER, SELFPAY ==
[2025-06-01 16:13] LABS: Anion Gap 12 (5-15); BUN 42 mg/dL (4-19); BUN/Creat Ratio 25.2 RATIO (10-20); Calcium,Total 9.4 mg/dL (7.6-11.0); Carbon Dioxide 25.7 mmol/L (21.0-32.0); Chloride 101 mmol/L (98-108); Glucose 150 mg/dL (70-99); Potassium 4.2 mmol/L (3.3-5.1)
== END | disposition home or self-care (01) ==
LOC: BFHLAB 11:38
PROVIDERS: PCP Family Medicine; Visit Provider Family Medicine
DX: N18.32 Chronic kidney disease, stage 3b (principal)
CPT/HCPCS: 36415; 80048

== ENCOUNTER → 2025-09-21 | Outpatient (CLI) | payer MEDICARE, OTHER, SELFPAY | END | disposition home or self-care (01) | LOC: LABSPEC 14:07 | PROVIDERS: PCP Family Medicine; Visit Provider Family Medicine | DX: R30.0 Dysuria (principal) | CPT/HCPCS: 87077; 87086; 87088; 87186 ==

== ENCOUNTER 2025-10-08 11:30 | Outpatient (RCR) | payer MEDICARE, OTHER, SELFPAY ==
--- NOTE | 2025-09-08 16:52 | HP.PTEVAL_ITS ---
Patient's Visit Information Visit Information Visit Information: TABATHA CONTEH is a 84 year old F referred to Physical Therapy by Dr. Mariano Hartman, DO with a diagnosis of Weakness. Date of Evaluation: 09/08/25 Physical Therapist: Roe Hernandez, DPT, OCS, CSCS Visit Plan Frequency: 2x /Week Duration: 4-6 Weeks Plan: 2x/week for 4-6 weeks... IE: educated on need to be more active safely. Treat with instruction in and progreession to I of LE strength postural strength, general strength adn FW weight shift at counter to HEP. Emphasize getting to I daily to help fight sedentarism once safety allows. Subjective Subjective: Sent by dr. Hartman because her L leg hurt. She broke it in 2015 but has not hurt above the knee laterally. Started hurting 2 weeks ago for no reason. 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 Thy want strength training. Diagnoses is weakness. Leg has not hurt in 2 weeks. Does not feel weak. 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 Does not live I. No cane or walker, no recent falls. 6 months ago fell BW off steps. No steps to get into susan suite. Dresses self, bathroom self, shower I, walk in shower with seat. Spends day: making cards, look at pictures, [place], Read. , play with organ, p uzzles. No regular exercise. Cleeans room. Sedentary. Objective Objective: Walks slowly with short steps into PT I. Trasnfer chair and bed I.Short steps in gait until cued adn then walks fast with better weihgt shift. L lg weaker than R in DF and on steps. FGA without AD today. steps reeciprocal with one rail and far weaker on L especially descending. UE AROM WFL with weaness at 3+/5 UE, 3 on L DF, R 4-, knee extension/flexion 3+ L and 4- R. Hip 3/5 See functional testing below. Balance/Special Test Scores Functional Gait Assessment Score: 22 % Disability: 26.6700 Lower Extremity Functional Score: 35 TUG Test Time Seconds: 8 30 Second Chair Rise Test Seconds: 14 Goals Goal 1:: FGA score 24/30 to reduce fall risk Goal Time Frame: 4-6 Weeks Goal 2:: I appropriate HEP to limit futre problems with sedentarism Goal Time Frame: 4-6 Weeks Goal 3:: Pt feel 50% more energetic with ambulation and more active. Goal Time Frame: 4-6 Weeks Goal 4:: 45 LEFS score Goal Time Frame: 4-6 Weeks Rehabilitation Potential Physical Therapy Diagnosis: short steps, weakness and sedentarism at risk for putting patient in danger of fall. Rehabilitation Potential: Fair Anticipated Interventions Patient/Client Instruction: Educate patient on: Condition and Risk Factors For the Purpose of:: To improve muscle performance and motor function, To increase tolerance to activity/condition/position, To improve ability of physical actions for home/community/work/leisure and To improve gait and locomotor functions Therapeutic Exercise to Include: Strength training, Balance training, Gait and locomotor training, Passive ROM and Active ROM For the Purpose of:: To improve muscle performance and motor function, To increase tolerance to activity/condition/position, To improve ability of physical actions for home/community/work/leisure and To improve gait and locomotor functions Text: Thank you for the opportunity to evaluate your patient. For Medicare and Medicare HMO plans, please review the plan of care and approve it. It will need to be FAXED BACK to us at [phone] for Medicare purposes. For Medicare only, by signing this I certify the plan of care. Please let me know if there are questions or concerns regarding this plan of care. Physician Signature: Date:____
--- NOTE | 2025-10-08 12:17 | HP.PTDCSUM_ITS ---
Discharge Summary D/C summary: It has been my pleasure to treat TABATHA CONTEH referred by Dr. Mariano Hartman DO, with the diagnosis of Weakness for a total of 8 visit(s). Discharge Date: 10/08/25 Please see the following information for a summary of their discharge status. Subjective Subjective: Leg doesnt hurt anymore. Feeling stronger. Activities: normal at homee. HEP : daily sink. Sleep is OK.No falls. No AD needed Overall Improvement % Improvement: 100 Objective Objective/Function: FGA is +2, LEFS is +20 and pain is gone. I with HEP and been doing it. Wants to keep doing it at home. Goals Goal 1:: FGA score 2430 to reduce fall risk Goal Progress: Goal Met Goal 2:: I appropriate HEP to limit futre problems with sedentarism Goal Progress: Goal Met Goal 3:: Pt feel 50% more energetic with ambulation and more active. Goal Progress: Goal Met Goal 4:: 45 LEFS score Goal Progress: Goal Met Plan Plan: d/c to HEP D/C Information d/c sentence: If there are questions or concerns regarding this patient's physical therapy, pl ease feel free to call me at [phone]. Thank you for the referral of this patient. Sincerely, Roe Hernandez, DPT, OCS, CSCS Balance/Gait/Functional tests Balance/Special Test Scores Functional Gait Assessment Score: 24 % Disability: 20.0000 Lower Extremity Functional Score: 56 TUG Test Time Seconds: 8 Tug Test: <10 sec.=free mobile 30 Second Chair Rise Test Seconds: 14 Improvement % Improvement: 100
== END 2025-10-08 19:00 | disposition home or self-care (01) ==
LOC: PT 11:30
PROVIDERS: PCP Family Medicine; Visit Provider Family Medicine
DX: R53.1 Weakness (principal)
CPT/HCPCS: 97110; 97161; 97164